=== PATIENT | female | born 1950 | race Caucasian/White ===

== ENCOUNTER 2024-10-08 17:18 | Inpatient (IN) | payer OTHER, MEDICAID, MEDICARE, SELFPAY ==
[2024-10-08 17:20] VITALS: BP 162/77; PULSE 83; RESP 19; TEMP 36.7; O2SAT 100
[2024-10-08 17:36] VITALS: PULSE 118; RESP 20; O2SAT 96
--- NOTE | 2024-10-08 18:21 | EKG_ITS ---
[facility] Test Date: 2024-10-08 Pat Name: MARCIN TEMPLE Department: Room: - Gender: Female Territory Representative: : 1950 Requested By: Luis Fernando Macedo Order Number: [id number] Reading MD: Luis Fernando Macedo Measurements Intervals Reading Rate: 111 P: 2 IA: 143 QRS: -31 QRSD: 73 T: 70 QT: 338 QTc: 460 Interpretive Statements SINUS TACHYCARDIA WITH OCCASIONAL SUPRAVENTRICULAR PREMATURE COMPLEXES MARKED LEFT AXIS DEVIATION [QRS AXIS < -30] PATTERN CONSISTENT WITH PULMONARY DISEASE MINIMAL VOLTAGE CRITERIA FOR LVH, CONSIDER NORMAL VARIANT [MEETS CRITERIA IN ONE OF: R(aVL), S(V1), R(V5), R(V5/V6)+S(V1)] NONSPECIFIC T-WAVE ABNORMALITY Compared to ECG 08/17/2024 09:07:51 Left-axis deviation now present T-wave abnormality now present Sinus rhythm no longer present /store/S0/[id number].pdf
--- NOTE | 2024-10-08 18:39 | XR_ITS ---
Examination: AP chest single view Technique: AP portable upright chest single view Exam date and time: October 08, 2024 1905 hrs. Comparison August 16, 2024 Indications: Hypertension diagnosis 2 days ago. Findings: Normal heart size Lungs are clear. The osseous structures are intact Impression: No active disease
--- NOTE | 2024-10-08 18:39 | PD.EDRME ---
Rapid Medical Screening Exam RME Arrival date/time: 10/08/24 17:18 74F with history of HTN, DM, CKD, and NSTEMI presents to ED with 2 days of HTN and anxiety, though patient has never had anxiety. Chief Complaint: General Adult/Misc Complain Time Seen by Provider: 10/08/24 18:24 Vital signs: Vital Signs Temperature 98.0 F 10/08/24 17:20 Pulse Rate 83 10/08/24 17:20 Respiratory Rate 19 10/08/24 17:20 Blood Pressure 162/77 H 10/08/24 17:20 Pulse Oximetry (%) 100 10/08/24 17:20 Oxygen Delivery Method Room Air 10/08/24 17:20
[2024-10-08 19:17] LABS: Basophils # (Auto) 0.1 Thou/mm3 (0.0-0.2); Basophils % (Auto) 1 % (0-2.5); Eosinophils # (Auto) 0.1 Thou/mm3 (0.0-0.5); Eosinophils % (Auto) 1 % (0-10); Hematocrit 38.6 % (36.0-46.0); Hemoglobin 13.1 g/dL (12.0-16.0); Immature Granulocytes % (Auto) 0 % (0-0); Immature Granulocytes Auto 0.03 Thou/mm3 (0.00-0.00); Lymphocytes # (Auto) 2.1 Thou/mm3 (1.0-4.8); Lymphocytes % (Auto) 21 % (10-50); Mean Corpuscular HGB Conc 33.9 g/dl (31.0-37.0); Mean Corpuscular Hemoglobin 28.4 pg (25.0-35.0); Mean Corpuscular Volume 84 fL (80-100); Monocytes # (Auto) 0.9 Thou/mm3 (0.0-0.8); Monocytes % (Auto) 9 % (0-12); Neutrophils # (Auto) 6.5 Thou/mm3 (1.8-7.7); Neutrophils % (Auto) 68 % (37-80); Nucleated Red Blood Cell % 0 /100 WBC (0); Platelet Count 246 Thou/mm3 (140-440); RDW Standard Deviation 42.7 fL (36.4-46.3); Red Blood Count 4.62 Miln/mm3 (4.00-5.20); White Blood Count 9.7 Thou/mm3 (3.6-11.0)
[2024-10-08 20:13] LABS: Alanine Aminotransferase 21 U/L (10-49); Albumin, Serum 5.3 gm/dL (3.4-4.8); Albumin/Globulin Ratio 2.2 (1.2-2.2); Alkaline Phosphatase 91 U/L (46-116); Anion Gap 11 (7-16); Aspartate Amino Transferase 27 U/L (0-34); BUN/Creatinine Ratio 18 Ratio (12-20); Bilirubin,Total 0.4 mg/dL (0.3-1.2); Blood Urea Nitrogen 29 mg/dL (9-23); Calcium 11.4 mg/dL (8.3-10.6); Calcium (Corrected) 11.4 mg/dL (8.5-10.1); Carbon Dioxide 23.1 mMol/L (20.0-31.0); Chloride 104 mMol/L (98-107); Creatinine (Component) 1.6 mg/dL (0.6-1.3); Globulin 2.4 gm/dL (2.3-3.5); Glucose 153 mg/dL (74-106); Osmolality,Calculated 284 (275-295); Potassium 3.6 mMol/L (3.4-5.1); Sodium 138 mMol/L (136-145); Total Protein 7.7 gm/dL (5.7-8.2); eGFR 33 See Note
[2024-10-08 20:14] LABS: Collection Type, Urine Clean Catch
[2024-10-08 20:16] LABS: Troponin I 0.262 ng/mL (0.0-0.045)
[2024-10-08 20:22] LABS: Bilirubin,Urine Negative (Negative); Blood,Urine Negative (Negative); Clarity,Urine Clear (Clear/Hazy); Color,Urine Lt-Yellow (Lt Yel-Yel); Glucose, Urine Negative (Negative); Ketones,Urine Negative (Negative); Leukocyte Esterase,Urine Positive (Negative); Nitrite,Urine Negative (Negative); PH,Urine 7.5 (5.0-7.0); Protein,Urine Negative (Neg - Trace); RBC,Urine 2 /hpf (0-3); Specific Gravity,Urine 1.009 (1.001-1.035); Squamous Epithelial Cell,Urine 1 /hpf (0-5); Urobilinogen,Urine Negative mg/dL (0.0-1.0); WBC,Urine 5 /hpf (0-5)
[2024-10-08 20:28] LABS: Amphetamine/Methamp Scrn,U Negative (Negative); Barbiturate Screen,Urine Negative (Negative); Benzodiazepines Screen,Urine Negative (Negative); Benzoylecgonine Screen, Ur Negative (Negative); Fentanyl Screen,Urine Negative (Negative); Opiate Screen,Urine Negative (Negative); THC Screen,Urine Negative (Negative)
--- NOTE | 2024-10-08 21:26 | PC.NURSE ---
Pt to room 6 at this time from lobby; assumed care.
[2024-10-08 21:33] VITALS: BP 161/94; PULSE 115; RESP 15; TEMP 36.4; O2SAT 98
[2024-10-08 21:34] VITALS: BP 161/94; PULSE 110; RESP 17; O2SAT 98
[2024-10-08 21:39] LABS: Troponin I 0.268 ng/mL (0.0-0.045)
--- NOTE | 2024-10-08 22:32 | PC.NURSE ---
WALKER Sal at the bedside at this time.
--- NOTE | 2024-10-08 22:37 | XR_ITS ---
Examination: CT brain head without contrast. 2-D sagittal coronal reconstructions Date and time of exam:October 09, 2024 0004 hrs. Indications: High blood pressure with headache today CTDI: vol (mGy):47.6 DLP: (mGycm):925 Technique: Multiple CT axial sections of the brain have been obtained, 5 mm slice thickness. Contrast has not been administered. 2-D sagittal, coronal reconstructions have been obtained Low dose protocols were performed. One or more of the following dose reduction techniques were used; automated exposure control, adjustment of the mA and/or KV according to patient size, use of iterative reconstruction technique. Findings: No significant ventricular enlargement. 6 mm old appearing left brainstem infarct pontine level Intra-axial or extra-axial hemorrhage density is not seen. No mass effect or midline shift Basal cisterns are not remarkable. Fourth ventricle is midline. Cranial vault intact. 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
--- NOTE | 2024-10-08 22:39 | PD.EDADULT ---
ED General RME/HPI General Chief complaint: General Adult/Misc Complain Stated complaint: HYPERTENSION Time Seen by Provider: 10/08/24 18:24 Arrival date/time: 10/08/24 17:18 RME / HPI RME / HPI narrative: 74-year-old female patient with significant history of hypertension diabetes mellitus, , and non-STEMI, came into the emergency room for evaluation regarding dizziness and headache. Patient been having dizziness and headache for the last 3 days, and was also noted to have elevated blood pressure. While waiting in the triage, patient developed left-sided chest pain lasting for several minutes. Currently patient is not having any chest pain. Patient denies any cough denies any other complaints no medications taken prior to arrival. Related Data Home Medications ?Medication ?Instructions ?Recorded ?Confirmed clonidine HCl 0.2 mg tablet 1 tab PO DAILY ##0 10/17/13 08/16/24 (Catapres) diphenhydramine HCl 50 mg capsule 50 mg PO QHSPRN PRN Sleep ##0 10/17/13 08/16/24 metformin 500 mg tablet 500 mg PO DAILY #0 tabs 10/17/13 08/16/24 (Glucophage) valsartan 320 mg tablet (Diovan) 320 mg PO QDAY #0 tabs 10/17/13 08/16/24 gabapentin 300 mg capsule 300 mg PO BID #0 caps 07/09/14 08/16/24 aspirin 81 mg tablet 81 mg PO QDAY 08/16/24 08/16/24 hydrocodone 10 mg-acetaminophen 1 tab PO PRN PRN Pain 08/16/24 08/16/24 325 mg tablet loratadine 10 mg tablet 10 mg PO QDAY PRN Allergies 08/16/24 08/16/24 rosuvastatin 10 mg tablet 10 mg PO QDAY 08/16/24 08/16/24 Previous Rx's ?Medication ?Instructions ?Recorded hydralazine 100 mg tablet 100 mg PO TID 60 days #180 tabs 08/18/24 Allergies Allergy/AdvReac Type Severity Reaction Status Date / Time pseudoephedrine AdvReac Severe RAPID Verified 10/08/24 17:43 HEART BEAT Review of Systems Review of Systems Narrative Review of Systems: Review of system reviewed and within normal limits except mentioned in HPI ED Exam Narrative Physical exam: VITAL SIGNS: Reviewed. GENERAL APPEARANCE: Alert and interactive, follows commands, no acute distress, HEAD AND FACE: Non-traumatic. ENT: PERRL, pink conjunctivitis, eyelid no trauma, Mucous membrane moist. NECK: Supple, nontender, no nuchal rigidity. CHEST: No tenderness, no crepitus, no paradoxical movement, no retractions. LUNGS: Clear, well ventilated, symmetric, no rales, no wheezing, no ronchi, no stridor, good breath sounds bilaterally. HEART: Regular rate, regular rhythm, no murmur, no gallops. ABDOMEN: Soft, positive bowel sounds, nondistended, no guarding, nontender, no rebound, no masses, RECTAL: Deferred. GENITAL: Deferred. NEUROLOGICAL: Gross motor function intact sensory function intact, Appropriate for age. MUSCULOSKELETAL: low back nontender, full range of motion. EXTREMITIES: Nontender, full range of motion. SKIN: Color pink, dry, no rash, no lacerations, no abrasions, no contusions. LYMPHATICS: Deferred. Course Quality Measures none Orders Category Date Time Status COVID-19 Screening Questionnaire NOW Care 10/08/24 23:44 Active Decision to Admit X1 Care 10/08/24 23:44 Completed EKG (ED ONLY) *Do not use* NOW Care 10/08/24 18:21 Completed EKG (ED ONLY) *Do not use* NOW Care 10/08/24 23:[address] head/brain wo con Stat Exams 10/08/24 22:37 Completed EKG (ED Only) Stat Exams 10/08/24 18:21 Draft EKG (ED Only) Stat Exams 10/08/24 23:41 Ordered XR chest 1V portable Stat Exams 10/08/24 18:39 Completed CBC Stat Lab 10/08/24 18:53 Completed Comprehensive Metabolic Panel Stat Lab 10/08/24 18:53 Completed Drug Screen,Urine Stat Lab 10/08/24 20:04 Completed Troponin I Stat Lab 10/08/24 18:53 Completed Troponin I Stat Lab 10/08/24 20:49 Completed Troponin I Stat Lab 10/09/24 01:11 Completed Urinalysis Stat Lab 10/08/24 20:04 Completed Acetaminophen Tab [Tylenol ES Tab] Med 10/08/24 22:41 Discontinued 1,000 mg PO X1 ONE Sodium Chloride 0.9% 1000 ml [Ns] 1,000 ml Med 10/08/24 22:38 Discontinued IV 999 mls/hr Sodium Chloride 0.9% 500 ml [Ns] 500 ml Med 10/09/24 00:06 Discontinued IV 999 mls/hr Vital Signs Vital signs: Vital Signs Temperature 98.0 F 10/08/24 17:20 Pulse Rate 83 10/08/24 17:20 Respiratory Rate 19 10/08/24 17:20 Blood Pressure 162/77 H 10/08/24 17:20 Pulse Oximetry (%) 100 10/08/24 17:20 Oxygen Delivery Method Room Air 10/08/24 17:20 [facility] Patient data [place] [facility] [place] Clinical information provided by:: patient Social determinants that could affect healthcare access:: none Patient has the following chronic illnesses:: None How is presenting disease/condition affected by chronic disease/condition?: exacerbated by Evaluation data The following diagnostics were reviewed and interpreted by me:: lab results, radiology exam(s) and EKG tracing(s) Lab and/or radiology exams considered but not ordered:: None Interpretation Summary: Troponin was noted to be initially 0.262, after triage it went up to 0.268. EKG showed sinus tachycardia, ventricular rate of 111 bpm, no ST segment elevation depression noted. I personally reviewed and interpreted the x-ray of this patient. There is no acute abnormalities found, no infiltrates no pneumothorax no hemothorax normal chest x-ray. Review of other structures was without significant abnormal findings also. I additionally reviewed the radiologist report and agree with the interpretation. CT scan of the head came back unremarkable Medications Medications considered but not ordered:: None Medication administrations:: Medication Administration History Acetaminophen (Acetaminophen 325 Mg Tablet) 650 mg PO Q6H PRN PRN Reason: Pain 1-3 and/or Fever >100.1 Stop: 11/08/24 00:43 Aspirin (Aspirin Ec 81 Mg Tabec) 81 mg PO QDAY HARI Stop: 11/09/24 08:59 Atorvastatin Calcium (Atorvastatin Calcium 20 Mg Tablet) 80 mg PO HS HARI Stop: 11/09/24 20:59 Dextrose (Dextrose 50%-Water Inj 50 Ml Syringe) 25 ml IV Q15MIN PRN PRN Reason: BG 50-70 responsive npo pt Stop: 11/08/24 00:48 Dextrose (Dextrose 50%-Water Inj 50 Ml Syringe) 50 ml IV Q15MIN PRN PRN Reason: BG <50 OR BG <70 & pt unresponsive Stop: 11/08/24 00:48 Glucagon (Glucagon Inj 1 Mg Vial) 1 mg IM Q15MIN PRN PRN Reason: BG <70, and no IV access Heparin Sodium (Porcine) (Heparin Sod Inj 5000 Unit/Ml Vial) 5,000 unit SC Q12HR [facility] Stop: 10/23/24 08:59 Last Admin: 10/09/24 08:18 Dose: 5,000 unit Documented By: KARENA Co-signed By: KEITH Insulin Human Lispro (Insulin Lispro (Admelog) 1 Unit/0.01 Ml Unit) 0 unit SC ACHS [facility]; Protocol Stop: 11/08/24 07:29 Last Admin: 10/09/24 07:59 Dose: Not Given Documented By: KARENA Non-Admin Reason: Per Protocol Losartan Potassium (Losartan Potassium 25 Mg Tablet) 50 mg PO QDAY [facility] Stop: 11/09/24 08:59 Metoprolol Succinate (Metoprolol Succinate Xl 25 Mg Tabcr) 25 mg PO QDAY [facility] Stop: 11/08/24 10:14 Morphine Sulfate (Morphine Sulf Inj 10 Mg/Ml Vial) 1 mg IVP Q4HR PRN PRN Reason: Pain 7-10 Stop: 10/14/24 01:36 Last Admin: 10/09/24 08:19 Dose: 1 mg Documented By: KARENA Nifedipine (Nifedipine Xl 30 Mg Tabcr) 30 mg PO QDAY [facility] Stop: 11/08/24 20:59 Nitroglycerin (Nitroglycerin 0.4 Mg Subl Btl #25) 0.4 mg SL Q5MIN PRN PRN Reason: CHEST PAIN Ondansetron HCl (Ondansetron Inj 2 Mg/Ml Inj 2 Ml) 4 mg IV Q6H PRN; Protocol PRN Reason: NAUSEA OR VOMITING Stop: 11/08/24 00:43 Sennosides (Senna Tablet) 1 tab PO QDAY [facility]; Protocol Stop: 11/08/24 08:59 Last Admin: 10/09/24 08:18 Dose: 1 tab Documented By: KARENA Discontinued Medications Acetaminophen (Acetaminophen 500 Mg Tablet) 1,000 mg PO X1 ONE Stop: 10/08/24 22:42 Last Admin: 10/08/24 22:55 Dose: 1,000 mg Documented By: KG Aspirin (Aspirin 325 Mg Tablet) 325 mg PO X1 ONE Stop: 10/09/24 00:50 Last Admin: 10/09/24 00:54 Dose: 325 mg Documented By: KG Atorvastatin Calcium (Atorvastatin Calcium 20 Mg Tablet) 80 mg PO X1 ONE Stop: 10/09/24 01:56 Last Admin: 10/09/24 03:18 Dose: 80 mg Documented By: KG Sodium Chloride (Ns) 1,000 mls @ 999 mls/hr IV .Q1H1M ONE Stop: 10/08/24 23:38 Last Infusion: 10/08/24 23:57 Dose: Infused Documented By: Admin: 10/08/24 22:52 Dose: 999 mls/hr Documented By: KG Sodium Chloride (Ns) 500 mls @ 999 mls/hr IV .Q31M ONE Stop: 10/09/24 00:36 Last Infusion: 10/09/24 01:27 Dose: Infused Documented By: Admin: 10/09/24 00:53 Dose: 999 mls/hr Documented By: KG Magnesium Sulfate (Magnesium Sulfate Ivpb) 2 gm in 50 mls @ 25 mls/hr IV X1 ONE Stop: 10/09/24 11:03 Last Admin: 10/09/24 09:27 Dose: 25 mls/hr Documented By: AM Magnesium Sulfate (Magnesium Sulfate Ivpb) 2 gm in 50 mls @ 25 mls/hr IV X1 ONE Stop: 10/09/24 12:02 Losartan Potassium (Losartan Potassium 25 Mg Tablet) 50 mg PO X1 ONE Stop: 10/09/24 09:02 Last Admin: 10/09/24 09:28 Dose: 50 mg Documented By: AM Nifedipine (Nifedipine Xl 30 Mg Tabcr) 30 mg PO X1 ONE Stop: 10/09/24 00:56 Last Admin: 10/09/24 01:47 Dose: 30 mg Documented By: KG Nifedipine (Nifedipine Xl 30 Mg Tabcr) 30 mg PO QDAY HARI Stop: 11/08/24 08:59 Potassium Chloride (Potassium Chloride 20 Meq Tabcr) 40 meq PO X1 ONE Stop: 10/09/24 09:04 Last Admin: 10/09/24 09:27 Dose: 40 meq Documented By: AM Potassium Chloride (Potassium Chloride 20 Meq Tabcr) 20 meq PO X1 ONE Stop: 10/09/24 09:06 Last Admin: 10/09/24 09:28 Dose: 20 meq Documented By: AM Patient received Tylenol, aspirin Consultations Consultation(s) initiated? (list below): No Diagnosis Differential Diagnosis ED Complaint MDM: Chest pain, ACS, headache, dizziness Most likely diagnosis given after review of the tests above:: Chest pain, elevated troponin dizziness Admission Indicated Admission indicated?: indicated Explain why admission is indicated or not indicated:: Patient is to be admitted for further management Admission Request Was there a request for admission?: Yes Admission Attestation Admission request attestation: Discussed case with [Jamia] from Hospitalist service regarding admission. Discussed patients ED course, exam findings, labs, and radiology results. The Hospitalist [agrees] to accept the patient for admission. Disposition Plan Disposition Plan: Admit Medical Decision Making MDM Narrative MDM Narrative: 74-year-old female patient with significant history of hypertension diabetes mellitus, , and non-STEMI, came into the emergency room for evaluation regarding dizziness and headache. Patient been having dizziness and headache for the last 3 days, and was also noted to have elevated blood pressure. While waiting in the triage, patient developed left-sided chest pain lasting for several minutes. Currently patient is not having any chest pain. Patient denies any cough denies any other complaints no medications taken prior to arrival. Patient's troponin was noted to be 0.262 and after 3 hours, it went up to 0.268. EKG showed no ST segment elevation or depression noted. While in the emergency room patient had a total of 3 episode of substernal chest pain, that lasted for few minutes. CT scan of the head came back unremarkable. Case discussed with Dr. Blandon, hospitalist resident, discussed the case, and waiting for the third troponin. Care transferred to Dr. Armenta for final disposition 11:30 PM. Differential Diagnosis Differential Diagnosis: Chest pain, ACS, headache, dizziness Lab Data 10/09/24 07:59 10/09/24 07:59 Labs: Lab Results 10/08/24 10/08/24 10/08/24 Range/Units 18:53 20:04 20:49 WBC 9.7 (3.6-11.0) Thou/mm3 RBC 4.62 (4.00-5.20) Miln/mm3 Hgb 13.1 (12.0-16.0) g/dL Hct 38.6 (36.0-46.0) % MCV 84 (80-100) fL MCH 28.4 (25.0-35.0) pg MCHC 33.9 (31.0-37.0) g/dl RDW Std Deviation 42.7 (36.4-46.3) fL Plt Count 246 (140-440) Thou/mm3 Neut % (Auto) 68 (37-80) % Lymph % (Auto) 21 (10-50) % [place] % (Auto) 9 (0-12) % Eos % (Auto) 1 (0-10) % Baso % (Auto) 1 (0-2.5) % Neut # (Auto) 6.5 (1.8-7.7) Thou/mm3 Lymph # (Auto) 2.1 (1.0-4.8) Thou/mm3 [place] # (Auto) 0.9 H (0.0-0.8) Thou/mm3 Eos # (Auto) 0.1 (0.0-0.5) Thou/mm3 Baso # (Auto) 0.1 (0.0-0.2) Thou/mm3 Immature Gran # (Auto) 0.03 H (0.00-0.00) Thou/mm3 Absolute Nucleated RBC 0.00 (0.00-0.00) Thou/mm3 Immature Gran % 0 (0-0) % Nucleated RBC % 0 (0) /100 WBC Sodium 138 (136-145) mMol/L Potassium 3.6 (3.4-5.1) mMol/L Chloride 104 (98-107) mMol/L Carbon Dioxide 23.1 (20.0-31.0) mMol/L Anion Gap 11 (7-16) BUN 29 H (9-23) mg/dL Creatinine 1.6 H (0.6-1.3) mg/dL Estim Creat Clear Calc Not Performed. eGFR 33 L (60 - ) See Note BUN/Creatinine Ratio 18 (12-20) Ratio Glucose 153 H (74-106) mg/dL Calculated Osmolality 284 (275-295) Calcium 11.4 H (8.3-10.6) mg/dL Corrected Calcium 11.4 H (8.5-10.1) mg/dL Total Bilirubin 0.4 (0.3-1.2) mg/dL AST 27 (0-34) U/L ALT 21 (10-49) U/L Alkaline Phosphatase 91 (46-116) U/L Troponin I 0.262 H* 0.268 H* (0.0-0.045) ng/mL Total Protein 7.7 (5.7-8.2) gm/dL Albumin 5.3 H (3.4-4.8) gm/dL Globulin 2.4 (2.3-3.5) gm/dL Albumin/Globulin Ratio 2.2 (1.2-2.2) Ur Collection Type Clean Catch Urine Color Lt-Yellow (Lt Yel-Yel) Urine Clarity Clear (Clear/Hazy) Urine pH 7.5 H (5.0-7.0) Ur Specific [place] 1.009 (1.001-1.035) Urine Protein Negative (Neg - Trace) Urine Glucose (UA) Negative (Negative) Urine Ketones Negative (Negative) Urine Blood Negative (Negative) Urine Nitrite Negative (Negative) Urine Bilirubin Negative (Negative) Urine Urobilinogen (Auto) Negative (0.0-1.0) mg/dL Ur Leukocyte Esterase Positive (Negative) Urine RBC 2 (0-3) /hpf Urine WBC 5 (0-5) /hpf Ur Squamous Epith Cells 1 (0-5) /hpf Urine Bacteria None (None) Urine Opiates Screen Negative (Negative) Urine Fentanyl Screen Negative (Negative) Ur Barbiturates Screen Negative (Negative) U Amphetamin/Meth Scrn Negative (Negative) U Benzodiazepines Scrn Negative (Negative) U Cocaine Metab Screen Negative (Negative) U Marijuana (THC) Screen Negative (Negative) Discharge Plan Problem List Clinical Impression: Chest pain, Elevated troponin, Headache
[2024-10-08] MEDS: SODIUM CHLORIDE 0.9% 1000 ML 1,000 ML 999 ML IV (22:52)
[2024-10-08] MEDS: ACETAMINOPHEN 500 MG TABLET 1000 MG PO (22:55)
--- NOTE | 2024-10-08 23:42 | PD.EDADDENDU ---
Emergency Room Addendum Addendum Narrative: 2342: Care assumed from Doron Hardin Past medical, surgical, social and family history reviewed. Vitals and home medications reviewed. Results and treatment plan discussed. I will assume the care of the patient at this time and will follow the patient, pending . Please refer to the emergency department record for history and examination from initial visit.
--- NOTE | 2024-10-08 23:43 | PC.NURSE ---
Pt stating she feels like a ton of bricks are on her chest right now. ED DIRECTOR TRUST Candijun notified, verbal order received for repeat EKG.
--- NOTE | 2024-10-08 23:58 | PC.NURSE ---
Pt to CT scan via [facility] at this time.
[2024-10-09] VITALS (26 sets, daily range): BP systolic 137–204; BP diastolic 54–119; PULSE 73–157; RESP 14–98; TEMP 36.4–37.1; O2SAT 95–98
--- NOTE | 2024-10-09 00:06 | PD.EDADDENDU ---
Emergency Room Addendum Addendum Narrative: 0006: Spoke with the resident hospitalist, who recommends getting a repeat troponin, IVF, and repeat BMP. If labs are improved, the patient can be discharged home.
[2024-10-09] MEDS: SODIUM CHLORIDE 0.9% 500 ML 500 ML 999 ML IV (00:53)
[2024-10-09] MEDS: Aspirin 325 MG TABLET PO (00:54)
--- NOTE | 2024-10-09 00:56 | ESHP_ITS ---
Documentation for date of: 10/09/24 [facility] History of Present Illness Chief complaint: Dizziness, Chest Pain History of present illness: 74 year old female with a past medical history of poorly-controlled hypertension, diabetes mellitus type 2 non insulin dependent, and possible coronary artery disease (followed by Dr. Box over 10 years ago) presents to the emergency room with a chief complain of dizziness and later developed left sided chest pain while waiting in the ED. Patient states that symptoms started 3 days ago (10/05) and have progressively worsened. She states that she felt like she was walking like she was drunk , had dizziness along with shakiness, and almost fell but her friend was able to catch her. She knows that she has uncontrolled hypertension, but she states that she takes almost all of her medications as prescribed. Patient is on Lasix, nifedipine, valsartan, clonidine and hydralazine; however, she has apparently stopped taking clonidine because she believes she doesn't need it. Of note, patient was discharged from the hospital on 08/18 with viral gastritis and told to follow-up outpatient with a email marketing executive; however, she has never been seen by a email marketing executive. Patient currently states that she feels like there is a ton of bricks on her chest and although the pain worsens with deep breathing, she states that the pain is present at all times. Patient also has some palpitations, but denies having any orthopnea, PND, lower extremity edema prior to this episode or currently. Medical History: As stated above Surgical History: Partial hysterectomy Allergies: Pseudoephedrine Medications: Pending med rec Family History: Noncontributory Social History: Former smoker, quit 25 years ago. Denied alcohol and illicit drug use In the ED, blood pressure 162/77, heart rate 83, respiratory rate 19, afebrile satting 100 on room air. Pertinent lab findings included WBC 9.7, BUN 29, creatinine 1.6, glucose 153, calcium 11.4, troponin 0.262. Urinalysis does not show any signs of urinary tract infection. Chest x-ray does not show any active disease; however, EKG is sinus tachycardia and does show new left axis deviation without any concerning ST changes. Head CT shows no evidence of intracranial hemorrhage, mass effect or midline shift; however, there are chronic small vessel ischemic changes noted. Patient will be admitted for workup for possible ACS, NSTEMI type I as she does have history of CAD, will consult cardiology for recommendations. Exam Vital Signs Temp Pulse Resp BP Pulse Ox O2 Del Method 97.5 F 96 17 191/119 H 98 Room Air 10/08/24 21:33 10/09/24 00:55 10/09/24 00:55 10/09/24 00:55 10/09/24 00:55 10/09/24 00:55 Narrative Exam Physical Exam: GENERAL: Awake, answering questions appropriately, appears stated age HEENT: NC/AT. Moist mucosa. PERRLA/EOMI. CARDIO: Heart RRR, no obvious murmurs, no JVD. PULM: No coughing or visible SOB. Lungs CTA B/L. GI: Abdomen soft, NT/ND, +BS. SKIN/MSK/EXT: No wounds/discoloration/rashes/edema/amputations. +Pedal pulses present B/L. NEURO: Oriented x3, tattoo designer strength 5/5, Moves extremities x4. Results: Labs 10/08/24 18:53 10/08/24 18:53 Labs: Short CBC 10/08/24 Range/Units 18:53 WBC 9.7 (3.6-11.0) Thou/mm3 Hgb 13.1 (12.0-16.0) g/dL Hct 38.6 (36.0-46.0) % Plt Count 246 (140-440) Thou/mm3 BMP 10/08/24 18:53 Sodium 138 Potassium 3.6 Chloride 104 Carbon Dioxide 23.1 BUN 29 H Creatinine 1.6 H Glucose 153 H Calcium 11.4 H Cardiac Enzymes 10/08/24 10/08/24 Range/Units 18:53 20:49 Troponin I 0.262 H* 0.268 H* (0.0-0.045) ng/mL Liver Function 10/08/24 Range/Units 18:53 Total Bilirubin 0.4 (0.3-1.2) mg/dL AST 27 (0-34) U/L ALT 21 (10-49) U/L Alkaline Phosphatase 91 (46-116) U/L Albumin 5.3 H (3.4-4.8) gm/dL Urine 10/08/24 Range/Units 20:04 Urine Color Lt-Yellow (Lt Yel-Yel) Urine Clarity Clear (Clear/Hazy) Urine pH 7.5 H (5.0-7.0) Ur Specific [place]ola 1.009 (1.001-1.035) Urine Protein Negative (Neg - Trace) Urine Glucose (UA) Negative (Negative) Quality Measures Quality Measures VTE prophylaxis Advance care planning discussed with:: patient Medications Home Medications and Allergies Home Medications ?Medication ?Instructions ?Recorded ?Confirmed ?Type clonidine HCl 0.2 mg tablet 1 tab PO DAILY ##0 10/17/13 08/16/24 History (Catapres) diphenhydramine HCl 50 mg capsule 50 mg PO QHSPRN PRN Sleep ##0 10/17/13 08/16/24 History metformin 500 mg tablet 500 mg PO DAILY #0 tabs 10/17/13 08/16/24 History (Glucophage) valsartan 320 mg tablet (Diovan) 320 mg PO QDAY #0 tabs 10/17/13 08/16/24 History gabapentin 300 mg capsule 300 mg PO BID #0 caps 07/09/14 08/16/24 History aspirin 81 mg tablet 81 mg PO QDAY 08/16/24 08/16/24 History hydrocodone 10 mg-acetaminophen 1 tab PO PRN PRN Pain 08/16/24 08/16/24 History 325 mg tablet loratadine 10 mg tablet 10 mg PO QDAY PRN Allergies 08/16/24 08/16/24 History rosuvastatin 10 mg tablet 10 mg PO QDAY 08/16/24 08/16/24 History Allergies Allergy/AdvReac Type Severity Reaction Status Date / Time pseudoephedrine AdvReac Severe RAPID Verified 10/08/24 17:43 HEART BEAT Visit Medications Acetaminophen (Acetaminophen 325 Mg Tablet) 650 mg PO Q6H PRN PRN Reason: Pain 1-3 and/or Fever >100.1 Stop: 11/08/24 00:43 Dextrose (Dextrose 50%-Water Inj 50 Ml Syringe) 25 ml IV Q15MIN PRN PRN Reason: BG 50-70 responsive npo pt Stop: 11/08/24 00:48 Dextrose (Dextrose 50%-Water Inj 50 Ml Syringe) 50 ml IV Q15MIN PRN PRN Reason: BG <50 OR BG <70 & pt unresponsive Stop: 11/08/24 00:48 Glucagon (Glucagon Inj 1 Mg Vial) 1 mg IM Q15MIN PRN PRN Reason: BG <70, and no IV access Insulin Human Lispro (Insulin Lispro (Admelog) 1 Unit/0.01 Ml Unit) 0 unit SC ACHS [facility]; Protocol Stop: 11/08/24 07:29 Nitroglycerin (Nitroglycerin 0.4 Mg Subl Btl #25) 0.4 mg SL Q5MIN PRN PRN Reason: CHEST PAIN Ondansetron HCl (Ondansetron Inj 2 Mg/Ml Inj 2 Ml) 4 mg IV Q6H PRN; Protocol PRN Reason: NAUSEA OR VOMITING Stop: 11/08/24 00:43 Sennosides (Senna Tablet) 1 tab PO QDAY [facility]; Protocol Stop: 11/08/24 08:59 Discontinued Medications Acetaminophen (Acetaminophen 500 Mg Tablet) 1,000 mg PO X1 ONE Stop: 10/08/24 22:42 Last Admin: 10/08/24 22:55 Dose: 1,000 mg Aspirin (Aspirin 325 Mg Tablet) 325 mg PO X1 ONE Stop: 10/09/24 00:50 Last Admin: 10/09/24 00:54 Dose: 325 mg Sodium Chloride (Ns) 1,000 mls @ 999 mls/hr IV .Q1H1M ONE Stop: 10/08/24 23:38 Last Infusion: 10/08/24 23:57 Dose: Infused Sodium Chloride (Ns) 500 mls @ 999 mls/hr IV .Q31M ONE Stop: 10/09/24 00:36 Last Admin: 10/09/24 00:53 Dose: 999 mls/hr Nifedipine (Nifedipine Xl 30 Mg Tabcr) 30 mg PO X1 ONE Stop: 10/09/24 00:56 Assessment & Plan Plan 74 year old female with a past medical history of poorly-controlled hypertension, diabetes mellitus type 2 non insulin dependent, and possible coronary artery disease (followed by Dr. Box over 10 years ago) presents to the emergency room with a chief complain of dizziness and later developed left sided chest pain while waiting in the ED will be admitted for workup for possible ACS, NSTEMI type I as she does have history of CAD, will consult cardiology for recommendation. #Elevated Troponin #NSTEMI Type I vs. Type II #Possible Hx of CAD Patient presenting initially with headache/dizziness; however, during waiting she developed left-sided chest pain which she explains feels like bricks on her chest ALEXANDRO ACS score of 107?points 5?% Probability of from admission to 6 months Patient has remote history of following with Dr. Box, cardiology almost 10 years ago Patient denies having any cardiac stent placed ECHO from 08/17/2024 shows: Normal LV size and function. Grade I diastolic dysfunction. Estimated EF 60-65% Normal RV size and function. Trace MR, TR. Mild AV sclerosis without stenosis. She has risk factors for CAD; history of smoking, uncontrolled hypertension, type 2 diabetes, obesity Troponin went from 0.262 => 0.268 => 0.279 Plan: Cardiology, Dr. Pacheco, consulted appreciate recommendations Given aspirin 325, aspirin 81 daily following Trending troponin, next one @ 7am 10/09 Telemetry admit Nitroglycerin sublingual, max dose of 3 as needed every 5 minutes Morphine 1 mg every 4 hours added for pain control #Hypertension #Dizziness/Headache Patient has poorly controlled hypertension She takes Lasix 20, nifedipine 30, valsartan 320, hydralazine 100 Patient states she stopped taking Clonidine 0.2mg po bid at her own will Presenting with elevated BP in the ED; however, she has not taken any of her home medications due to feeling acutely ill Head CT shows no evidence of intracranial hemorrhage, mass effect or midline shift; however, there are chronic small vessel ischemic changes noted. Plan: Restart home medications appropriately Started nifedipine 30mg po qday for now Holding the rest for now #EUGENIA #Prerenal Azotemia Baseline Cr 1-1.2 Currently presenting with Cr 1.6 Likely in the setting of prerenal azotemia; poor po intake Urinanalysis wnl IVF given in ED Plan: Follow-up with morning labs Treat hypertension #Non-insulin dependent Type 2 DM 08/17 A1c of 5.8 On home metformin 500mg po qday Plan: SSI Bedside glucose ACHS #Hyperlipidemia High-intensity statin recommended because of known diabetes and 10-year risk >=.5%. If LDL <70mg/dl (1.81 mmol/L) 48.5% Risk of cardiovascular event (coronary or stroke or non-fatal DE or stroke) in next 10 years. 12.0% 10-year cardiovascular risk if risk factors were optimal. On home rosuvastatin 10mg po qday Plan: Will start high intensity statin Hospital Management: Lines: PIV Diet: Cardiac and carb consistent low Bowel: Senna GI prophylaxis: Not needed DVT prophylaxis: Heparin subq Dispo: Workup for ACS, NSTEMI type II versus type I, cardiology consulted appreciate recommendations Code: Full Patient seen and examined with attending Dr. Shaffer and senior resident Dr. Derrick Blandon, PGY-1 Attending Provider Attestation/Addendum Face to face evaluation was performed by me. I have personally seen and examined the patient. I discussed the assessment and plan with the entire medicine team. I reviewed available medical records, imaging studies, laboratory results. I agree with the above subjective data, objective findings, assessment and plan except as corrected by me or noted below \ Dizziness elevated torpnin i, likely nstemi type 2 demand isthmia CP, atypical at least HTN essential HLD - asa, tropoinin checks, not up trending - ACS unlikely, Cardiology consulted - BP control - monitor labs, vitals and clinical course closely
--- NOTE | 2024-10-09 01:00 | PRELIM_ITS ---
CT scan of the head without intravenous contrast (axial sections with sagittal and coronal reformats) October 09, 2024 at 0004 hours Clinical history: Headache. Comparison: No prior study is available for comparison. Findings:There is no evidence of intracranial hemorrhage, mass effect or midline shif t. There are periventricular and subcortical white matter hypodensities, compatible with chronic smal l vessel ischemia. There is atheromatous calcification of the intracranial arteries. The calvarium is unremarkable. The mastoid air cells and the visualized paranasal sinuses are clear.Impression:No beverly dence of intracranial hemorrhage, mass effect or midline shift.Chronic small vessel ischemia. Report Electronically Signed By: Milton Santos 10/09/2024 12:59:30 AM [EST]
--- NOTE | 2024-10-09 01:00 | PC.NURSE ---
Addendum entered by Reyna Juarez RN 10/09/24 01:01: nifedipine 30 mg, as we do not stock it in the ED. 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
[2024-10-09] MEDS: NIFEdipine XL 30 MG TABCR PO ×2 (01:47→20:01)
[2024-10-09 01:57] LABS: Troponin I 0.279 ng/mL (0.0-0.045)
[2024-10-09] MEDS: ATORVASTATIN CALCIUM 20 MG TABLET 80 MG PO (03:18)
--- NOTE | 2024-10-09 07:41 | PC.CC ---
Patient is a 74 year-old female who presented to the hospital for chest pain. Aneta MONTEMAYOR made pfey-jq-dump contact with patient. ASW introduced self, role, and reason for visit. Patient appeared alert and oriented to self, location, and situation. Patient was pleasant and engaged in initial assessment. Patient confirmed information on demographics and lives at home with her daughter, Francine Chan . Prior to being admitted to the hospital the patient was able to ambulate independently and complete her own ADLs without the use of any DME. Patient received primary care with Yolande Ashton and uses [facility] for any prescription medications. Patient's Next of Kin is her daughter, Francine Chan. Upon discharge the patient plans to return home. tax services intern to follow-up with any discharge needs.
[2024-10-09 08:10] LABS: Basophils % (Auto) 1 % (0-2.5); Eosinophils # (Auto) 0.1 Thou/mm3 (0.0-0.5); Eosinophils % (Auto) 2 % (0-10); Hematocrit 34.7 % (36.0-46.0); Immature Granulocytes % (Auto) 0 % (0-0); Immature Granulocytes Auto 0.02 Thou/mm3 (0.00-0.00); Lymphocytes # (Auto) 1.7 Thou/mm3 (1.0-4.8); Lymphocytes % (Auto) 26 % (10-50); Mean Corpuscular HGB Conc 34.6 g/dl (31.0-37.0); Mean Corpuscular Hemoglobin 28.2 pg (25.0-35.0); Mean Corpuscular Volume 82 fL (80-100); Monocytes # (Auto) 0.7 Thou/mm3 (0.0-0.8); Monocytes % (Auto) 11 % (0-12); Neutrophils % (Auto) 60 % (37-80); Nucleated Red Blood Cell % 0 /100 WBC (0); Platelet Count 182 Thou/mm3 (140-440); RDW Standard Deviation 41.1 fL (36.4-46.3); Red Blood Count 4.26 Miln/mm3 (4.00-5.20); White Blood Count 6.6 Thou/mm3 (3.6-11.0)
[2024-10-09] MEDS: SENNA TABLET 1 TAB PO (08:18)
[2024-10-09] MEDS: HEPARIN SOD INJ 5000 UNIT/ML VIAL SC ×2 (08:18→20:05)
[2024-10-09] MEDS: MORPHINE SULF INJ 10 MG/ML VIAL IVP (08:19)
[2024-10-09 08:36] LABS: Alanine Aminotransferase 18 U/L (10-49); Albumin, Serum 4.7 gm/dL (3.4-4.8); Albumin/Globulin Ratio 2.4 (1.2-2.2); Alkaline Phosphatase 79 U/L (46-116); Anion Gap 9 (7-16); Aspartate Amino Transferase 15 U/L (0-34); BUN/Creatinine Ratio 24 Ratio (12-20); Bilirubin,Total 0.5 mg/dL (0.3-1.2); Blood Urea Nitrogen 31 mg/dL (9-23); Calcium 10.5 mg/dL (8.3-10.6); Calcium (Corrected) 10.5 mg/dL (8.5-10.1); Carbon Dioxide 23.4 mMol/L (20.0-31.0); Chloride 109 mMol/L (98-107); Creatinine (Component) 1.3 mg/dL (0.6-1.3); Glucose 110 mg/dL (74-106); Osmolality,Calculated 288 (275-295); Phosphorous 2.9 mg/dL (2.4-5.1); Potassium 3.3 mMol/L (3.4-5.1); Sodium 141 mMol/L (136-145); Total Protein 6.7 gm/dL (5.7-8.2); eGFR 43 See Note
[2024-10-09 08:39] LABS: Troponin I 0.256 ng/mL (0.0-0.045)
--- NOTE | 2024-10-09 09:07 | ECHO_ITS ---
Transthoracic Echo Report Ht (in): 62 Wt (lb): 208 Exam Location: [facility] Status: Inpatient Retail Greeter: Mari Honeycutt Indications: Procedure Performed: BP: 182 / 97 HR: 93 Rhythm: Tachycardia Technical Quality: Fair MEASUREMENTS (Male / Female) Normal Values 2D ECHO LV Diastolic Diameter PLAX 4.3 cm 4.2 - 5.9 / 3.9 - 5.3 cm LV Systolic Diameter PLAX 2.9 cm IVS Diastolic Thickness 1.3 cm 0.6 - 1.0 / 0.6 - 0.9 cm LVPW Diastolic Thickness 1.2 cm 0.6 - 1.0 / 0.6 - 0.9 cm LV Relative Wall Thickness 0.6 LVOT Diameter 2.0 cm LA Volume Index 20.6 cm?/m? 16 - 28 cm?/m? Ascending Aorta Diameter 3.0 cm M-MODE Aortic Root Diameter MM 2.7 cm LA Systolic Diameter MM 3.9 cm LA Ao Ratio MM 1.4 AV Cusp Separation MM 1.9 cm DOPPLER AV Peak Velocity 145.0 cm/s AV Peak Gradient 8.4 mmHg AV Mean Gradient 4.0 mmHg AV Velocity Time Integral 24.2 cm LVOT Peak Velocity 130.0 cm/s LVOT Peak Gradient 6.8 mmHg LVOT Velocity Time Integral 24.0 cm LVOT Cardiac Index 3371.9 cm?/min?m? AV Area Cont Eq vti 3.1 cm? AV Area Cont Eq pk 2.8 cm? MV Peak Velocity 118.0 cm/s MV Peak Gradient 5.6 mmHg MV Mean Velocity 75.4 cm/s MV Mean Gradient 3.0 mmHg MV Area PHT 5.6 cm? Mitral E Point Velocity 55.7 cm/s Mitral A Point Velocity 99.2 cm/s Mitral E to A Ratio 0.6 LV E' Lateral Velocity 7.6 cm/s Mitral E to LV E' Lateral Ratio 7.3 LV E' Septal Velocity 5.7 cm/s Mitral E to LV E' Septal Ratio 9.8 FINDINGS Left Ventricle Normal left ventricular size, systolic function with no obvious regional wall motion abnormalities. Mild LVH. The ejection fraction is visually estimated at 60-65%. Right Ventricle The right ventricle is normal in size and systolic function. Left Atrium The left atrium is normal by two-dimensional, color flow and Doppler imaging with no structural abnormalities, no thrombus formation present. Right Atrium The right atrium is normal by two-dimensional imaging, color flow and Doppler imaging with no struct ural abnormalities, no thrombus formation present. Atrial Septum The interatrial septum appears normal with no evidence of a shunt. Aorta The aorta is normal by two-dimensional, color flow and Doppler interrogation. Mitral Valve The mitral valve is normal by two-dimensional, color flow and Doppler interrogation. There is trace mitral valve regurgitation. Aortic Valve The aortic valve is trileaflet. Mild sclerosis without stenosis. There is no significant aortic valv e regurgitation. Tricuspid Valve The tricuspid valve is normal by two-dimensional, color flow and Doppler interrogation. There ist tr massimo tricuspid valve regurgitation. Pulmonic Valve There is no significant pulmonic valve regurgitation. Vessels The pulmonary artery appears normal. The inferior vena cava pulmonary and hepatic veins appear brandan l. Pericardium The pericardium is normal by two-dimensional imaging. There is no significant pericardial effusion. CONCLUSIONS Indication: CAD Normal LV size and function. Mild LVH. Stage I diastolic dsyfunction. Estimated EF 60-65% Normal RV size and function. Mild AV sclerosis without stenosis. Trace MR, TR. Mich Pacheco (Electronically Signed) Final Date: 09 October 2024 18:02
--- NOTE | 2024-10-09 09:13 | EKG_ITS ---
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
[2024-10-09] MEDS: POTASSIUM CHLORIDE 20 mEq TABCR 40 MEQ PO (09:27)
[2024-10-09] MEDS: Magnesium Sulfate 2 GM Ivpb 2 GM/50 ML BAG IV (09:27)
[2024-10-09] MEDS: POTASSIUM CHLORIDE 20 mEq TABCR PO (09:28)
[2024-10-09] MEDS: LOSARTAN POTASSIUM 25 MG TABLET 50 MG PO (09:28)
--- NOTE | 2024-10-09 10:25 | PD.RESCONSUL ---
HPI Data of Consult Requesting Physician: Guilherme Shaffer MD Admitting Provider: Guilherme Shaffer MD Attending Provider: Guilherme Shaffer MD Primary Care Provider: Yolande Ashton PA-C Consult Narrative Reason for consult: NSTEMI and questionable SVT History of present illness: 74-year-old female with past medical history of uncontrolled essential hypertension and DM2 was admitted to the hospital on 10/09/2024 due to elevated troponins. In the ED patient came in with complaints of dizziness and headaches before she developed chest pain while she was in the ER. Initially patient came in hypertensive and afebrile. Initial labs showed WBC 9.7, Hgb 13.1, sodium 138, potassium 3.6, bicarb 23.1, creatinine 1.6, BUN 29, calcium 11.4, troponins 0.262 and peaked at 0.279 before downtrending UA was positive for leukocytes esterase. Initial imaging included an EKG which shows sinus tachycardia with occasional PVCs. 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 Echo on 08/09/2024 had the following findings: Normal LV size and function. Grade I diastolic dysfunction. Estimated EF 60-65% Normal RV size and function. Trace MR, TR. Mild AV sclerosis without stenosis. During my assessment patient was comfortably resting in bed and eating her breakfast. She mentioned that 3 days ago she started having dizziness with headaches and she was having balance issues. She described that her balance was wobbly when she was walking drunk . She mentioned that while she was here in the ER she developed chest pain localized in the middle with no radiation and she described as somebody sitting on her chest. She mentioned that she has been having shortness of breath on and off which some chest pain in the past as well but that this was not for prolonged period of time. She mentions that she does get short of breath with exertion and has been getting leg swelling on and off. Patient also mentioned that her blood pressure has been in the 200s at home. She denies any shortness of breath at this time she was still having some chest pain, which was reproducible with palpation. She also mentioned that her chest pain sometimes got better or worse with breathing and that it sometimes improve with changes in position. She denied any syncopal episodes, palpitations, or cardiac events in the past. While was in the room with the patient examining her I noticed on the monitor that she was going in and out of SVT with the heart rates in the 160s before dropping down to the 80s and 70s. These episodes were not sustained and repeat EKG did show some sinus tachycardia with short MT intervals. PMH: Uncontrolled hypertension DM2 FMH: No relevant cardiac history as per patient Social: Admits to smoking in the past (quit 20 years ago and only use 1 pack/year for 1 year), denies any alcohol or drugs. Occupation: Stated she never worked cc:: cc: Guilherme Shaffer MD Review of Systems Review of Systems Narrative Review of Systems: Constitutional: Denies sweats, Denies weight loss/gain, Denies fever, Denies chills. HEENT: Denies hearing loss, Denies ear pain, Denies postnasal drip, Denies double vision, Denies blurry vision. Respiratory: Admits shortness of breath, denies cough, Denies wheezing. Cardiovascular: Admits chest pain, denies palpitations, Denies sudden loss of consciousness. GI: Denies blood in stool, Denies constipation, Denies abdominal pain, Denies difficulty swallowing, Denies nausea/vomit. : Denies urinary incontinence, Denies pain while urinating, Denies increased urinary frequency. MSK: Denies joint pain, Denies joint swelling, Denies numbness, Admits lower extremity swelling. Skin: Denies rash, Denies itching, Denies easy bruising. Neuro: Admits headaches, admits dizziness, Denies seizures. Past Medical History Past Medical History Comments PMH COMMENT: PMH: Uncontrolled hypertension DM2 FMH: No relevant cardiac history as per patient Social: Admits to smoking in the past (quit 20 years ago and only use 1 pack/year for 1 year), denies any alcohol or drugs. Occupation: Stated she never worked Exam Vital Signs Temp Pulse Resp BP Pulse Ox O2 Del Method 97.6 F 80 16 156/70 H 97 Room Air 10/09/24 09:47 10/09/24 09:47 10/09/24 09:47 10/09/24 09:47 10/09/24 09:47 10/09/24 09:47 Narrative Exam General: A/O x3, no acute distress, well-nourished, well-developed Eyes: PERRL, EOMI. Anicteric, vision grossly intact. Ears: No ear pain, no ear discharge, Hearing grossly intact. Nose: No nasal discharge. Mouth/Throat: Dry mucous membranes, no redness, no lesions. Neck: Neck supple, non-tender, no cervical lymphadenopathy. Lungs: Clear SHAWN to auscultation and percussion, No accessory muscle use. Cardio: Normal S1/S2, regular rhythm, no murmurs, no JVD, chest tender to palpation. Abdomen: Soft, non-tender, no palpable masses, peristalsis present, no guarding or rebound. Extremities: Symmetrical, no significant deformities, 1+ peripheral edema , non-tender, peripheral pulses presents. Skin: No rashes, no lesions, warm to touch. Neuro: No focal neurological deficits. motor and sensory intact Psych: Cooperative, appropriate mood and effect. Results Labs 10/09/24 07:59 10/09/24 07:59 Labs: Short CBC 10/08/24 10/09/24 Range/Units 18:53 07:59 WBC 9.7 6.6 (3.6-11.0) Thou/mm3 Hgb 13.1 12.0 (12.0-16.0) g/dL Hct 38.6 34.7 L (36.0-46.0) % Plt Count 246 182 D (140-440) Thou/mm3 BMP 10/08/24 10/09/24 18:53 07:59 Sodium 138 141 Potassium 3.6 3.3 L Chloride 104 109 H Carbon Dioxide 23.1 23.4 BUN 29 H 31 H Creatinine 1.6 H 1.3 Glucose 153 H 110 H Calcium 11.4 H 10.5 Cardiac Enzymes 10/08/24 10/08/24 10/09/24 Range/Units 18:53 20:49 01:11 Troponin I 0.262 H* 0.268 H* 0.279 H* (0.0-0.045) ng/mL 10/09/24 Range/Units 07:59 Troponin I 0.256 H* (0.0-0.045) ng/mL Liver Function 10/08/24 10/09/24 Range/Units 18:53 07:59 Total Bilirubin 0.4 0.5 (0.3-1.2) mg/dL AST 27 15 (0-34) U/L ALT 21 18 (10-49) U/L Alkaline Phosphatase 91 79 (46-116) U/L Albumin 5.3 H 4.7 D (3.4-4.8) gm/dL Urine 10/08/24 Range/Units 20:04 Urine Color Lt-Yellow (Lt Yel-Yel) Urine Clarity Clear (Clear/Hazy) Urine pH 7.5 H (5.0-7.0) Ur Specific [place] 1.009 (1.001-1.035) Urine Protein Negative (Neg - Trace) Urine Glucose (UA) Negative (Negative) Quality Measures Quality Measures VTE prophylaxis Advance care planning discussed with:: patient Medications Home Medications and Allergies Home Medications ?Medication ?Instructions ?Recorded ?Confirmed ?Type clonidine HCl 0.2 mg tablet 1 tab PO DAILY ##0 10/17/13 08/16/24 History (Catapres) diphenhydramine HCl 50 mg capsule 50 mg PO QHSPRN PRN Sleep ##0 10/17/13 08/16/24 History metformin 500 mg tablet 500 mg PO DAILY #0 tabs 10/17/13 08/16/24 History (Glucophage) valsartan 320 mg tablet (Diovan) 320 mg PO QDAY #0 tabs 10/17/13 08/16/24 History gabapentin 300 mg capsule 300 mg PO BID #0 caps 07/09/14 08/16/24 History aspirin 81 mg tablet 81 mg PO QDAY 08/16/24 08/16/24 History hydrocodone 10 mg-acetaminophen 1 tab PO PRN PRN Pain 08/16/24 08/16/24 History 325 mg tablet loratadine 10 mg tablet 10 mg PO QDAY PRN Allergies 08/16/24 08/16/24 History rosuvastatin 10 mg tablet 10 mg PO QDAY 08/16/24 08/16/24 History Allergies Allergy/AdvReac Type Severity Reaction Status Date / Time pseudoephedrine AdvReac Severe RAPID Verified 10/08/24 17:43 HEART BEAT Visit Medications Acetaminophen (Acetaminophen 325 Mg Tablet) 650 mg PO Q6H PRN PRN Reason: Pain 1-3 and/or Fever >100.1 Stop: 11/08/24 00:43 Aspirin (Aspirin Ec 81 Mg Tabec) 81 mg PO QDAY HARI Stop: 11/09/24 08:59 Atorvastatin Calcium (Atorvastatin Calcium 20 Mg Tablet) 80 mg PO HS [facility] Stop: 11/09/24 20:59 Dextrose (Dextrose 50%-Water Inj 50 Ml Syringe) 25 ml IV Q15MIN PRN PRN Reason: BG 50-70 responsive npo pt Stop: 11/08/24 00:48 Dextrose (Dextrose 50%-Water Inj 50 Ml Syringe) 50 ml IV Q15MIN PRN PRN Reason: BG <50 OR BG <70 & pt unresponsive Stop: 11/08/24 00:48 Glucagon (Glucagon Inj 1 Mg Vial) 1 mg IM Q15MIN PRN PRN Reason: BG <70, and no IV access Heparin Sodium (Porcine) (Heparin Sod Inj 5000 Unit/Ml Vial) 5,000 unit SC Q12HR [facility] Stop: 10/23/24 08:59 Last Admin: 10/09/24 08:18 Dose: 5,000 unit Magnesium Sulfate (Magnesium Sulfate Ivpb) 2 gm in 50 mls @ 25 mls/hr IV X1 ONE Stop: 10/09/24 11:03 Last Admin: 10/09/24 09:27 Dose: 25 mls/hr Insulin Human Lispro (Insulin Lispro (Admelog) 1 Unit/0.01 Ml Unit) 0 unit SC [facility]; Protocol Stop: 11/08/24 07:29 Last Admin: 10/09/24 07:59 Dose: Not Given Losartan Potassium (Losartan Potassium 25 Mg Tablet) 50 mg PO QDAY [facility] Stop: 11/09/24 08:59 Metoprolol Succinate (Metoprolol Succinate Xl 25 Mg Tabcr) 25 mg PO QDAY [facility] Stop: 11/08/24 10:14 Morphine Sulfate (Morphine Sulf Inj 10 Mg/Ml Vial) 1 mg IVP Q4HR PRN PRN Reason: Pain 7-10 Stop: 10/14/24 01:36 Last Admin: 10/09/24 08:19 Dose: 1 mg Nifedipine (Nifedipine Xl 30 Mg Tabcr) 30 mg PO QDAY [facility] Stop: 11/08/24 20:59 Nitroglycerin (Nitroglycerin 0.4 Mg Subl Btl #25) 0.4 mg SL Q5MIN PRN PRN Reason: CHEST PAIN Ondansetron HCl (Ondansetron Inj 2 Mg/Ml Inj 2 Ml) 4 mg IV Q6H PRN; Protocol PRN Reason: NAUSEA OR VOMITING Stop: 11/08/24 00:43 Sennosides (Senna Tablet) 1 tab PO QDAY HARI; Protocol Stop: 11/08/24 08:59 Last Admin: 10/09/24 08:18 Dose: 1 tab Discontinued Medications Acetaminophen (Acetaminophen 500 Mg Tablet) 1,000 mg PO X1 ONE Stop: 10/08/24 22:42 Last Admin: 10/08/24 22:55 Dose: 1,000 mg Aspirin (Aspirin 325 Mg Tablet) 325 mg PO X1 ONE Stop: 10/09/24 00:50 Last Admin: 10/09/24 00:54 Dose: 325 mg Atorvastatin Calcium (Atorvastatin Calcium 20 Mg Tablet) 80 mg PO X1 ONE Stop: 10/09/24 01:56 Last Admin: 10/09/24 03:18 Dose: 80 mg Sodium Chloride (Ns) 1,000 mls @ 999 mls/hr IV .Q1H1M ONE Stop: 10/08/24 23:38 Last Infusion: 10/08/24 23:57 Dose: Infused Sodium Chloride (Ns) 500 mls @ 999 mls/hr IV .Q31M ONE Stop: 10/09/24 00:36 Last Infusion: 10/09/24 01:27 Dose: Infused Magnesium Sulfate (Magnesium Sulfate Ivpb) 2 gm in 50 mls @ 25 mls/hr IV X1 ONE Stop: 10/09/24 12:02 Losartan Potassium (Losartan Potassium 25 Mg Tablet) 50 mg PO X1 ONE Stop: 10/09/24 09:02 Last Admin: 10/09/24 09:28 Dose: 50 mg Nifedipine (Nifedipine Xl 30 Mg Tabcr) 30 mg PO X1 ONE Stop: 10/09/24 00:56 Last Admin: 10/09/24 01:47 Dose: 30 mg Nifedipine (Nifedipine Xl 30 Mg Tabcr) 30 mg PO QDAY HARI Stop: 11/08/24 08:59 Potassium Chloride (Potassium Chloride 20 Meq Tabcr) 40 meq PO X1 ONE Stop: 10/09/24 09:04 Last Admin: 10/09/24 09:27 Dose: 40 meq Potassium Chloride (Potassium Chloride 20 Meq Tabcr) 20 meq PO X1 ONE Stop: 10/09/24 09:06 Last Admin: 10/09/24 09:28 Dose: 20 meq Assessment & Plan Plan 74-year-old female with past medical history of uncontrolled essential hypertension and DM2 was admitted to the hospital on 10/09/2024 due to elevated troponins. 1. Possible SVT versus atrial flutter versus paroxysmal A-fib 2. NSTEMI ? Patient's initial EKG showed sinus tachycardia with occasional PVCs. ? Patient's troponins peaked at 0.27 before downtrending ? Patient has been complaining of chest pain since she was in the ER which she described as pressure-like and was worsened with palpation and can be worsened by breathing as well. ? During assessment patient did develop some episodes of SVTs unsustained with heart rate in the 160s before going back to 70s or 80s. ? Elevated troponins could be due to patient being in and out of SVT which could be secondary to dehydration given lab results. ?Echo on 08/09/2024 had the following findings: Normal LV size and function. Grade I diastolic dysfunction. Estimated EF 60-65% Normal RV size and function. Trace MR, TR. Mild AV sclerosis without stenosis. ? Patient's NSTEMI is most likely secondary to episodes of SVTs and her chest discomfort could also be likely due to these episodes of SVTs versus A-fib versus atrial flutter. Plan: ? Recommend to start patient on metoprolol XL 25 mg daily ?Recommend to replete magnesium with a total of 4 g and replete potassium with a total of 100 mEq. ?Patient will be placed n.p.o. for now in the setting that she does developed SVT and there were some EKG changes along with troponemia and will be taken for heart cath. ? Recommend to replete potassium magnesium aggressively to keep above 4 and 2 to avoid any further arrhythmias 3. Hypertensive emergency 4. Uncontrolled hypertension ?Patient mentioned that her blood pressure at home has been in the 200s ? Initial blood pressure was 162/77 and has been elevated with the highest up to the 191/119's ?This could also be contributing to patient's elevated troponins as well. Plan: ? Recommend to continue patient on losartan, nifedipine, and metoprolol and titrate as blood pressure allows. ?Recommend tight blood pressure control 5. DM2 6. EUGENIA ? Continue current management as per primary care team Continue rest of management as per primary team. We are grateful to be able to participate in Mrs. Chan's care. Thank you for the consult Plan of care discussed with attending Senior Materials Planner, Dr Tara Stevens MD PGY-1 Attending Provider Attestation/Addendum I have personally seen and examined the patient separately on the above date of service and discussed the plan of care with the resident. I reviewed the resident Dr. Blanco consultation note and agree with the resident findings and plan in the note above and have also edited the documentation to reflect my findings and plan. Mich Pacheco M.D. Interventional Cardiology
--- NOTE | 2024-10-09 11:18 | ESPR_ITS ---
<Statement entered by Mitchell Coffman MD - 10/09/24 16:30> Patient was seen and examined by me personally. I agree with most of the assessment and plan as discussed with the international banker physician, and my attending, Dr. May. Vitals, labs reviewed. Status postcardiac cath with moderate CAD. Appreciate cardiology recommendations. Will continue aspirin, statin, metoprolol. Resuming home antihypertensives, improved BP noted. Replete electrolytes and keep potassium above 4, mag above 2. EUGENIA improving. Mitchell Coffman MD, PGY-3 Documentation for date of: 10/09/24 Subjective Subjective Interval history: Patient was seen and examined bedside. Reported that she is still having pain having chest pain, center of the chest without any radiation, not associated with palpitations, sweating. Dr. Pacheco was consulted and did left and right heart catheterization which showed moderate CAD and recommended aspirin, atorvastatin. Recommended to titrate metoprolol based on her heart rate. Exam Vital Signs Temp Pulse Resp BP Pulse Ox O2 Del Method 97.6 F 80 16 156/70 H 97 Room Air 10/09/24 09:47 10/09/24 09:47 10/09/24 09:47 10/09/24 09:47 10/09/24 09:47 10/09/24 09:47 Narrative Exam General: Awake. Lying comfortably on the bed HEENT: Normocephalic, atraumatic, mucous membranes moist. Heart: Regular rate and rhythm, no murmurs. Lungs: Clear to auscultation with no wheezing or crackles. Abdomen: Soft, nondistended, nontender, positive bowel sounds. ?No guarding or rebound tenderness. Neurologic: Alert and oriented x3, no gross neurological deficit, and patient able to move all 4 extremities. Extremities: No edema. Skin: No rash or ecchymoses. Objective Labs 10/10/24 04:15 10/10/24 04:15 Labs: Laboratory Results - last 24 hr 10/08/24 10/08/24 10/08/24 18:53 20:04 20:49 WBC 9.7 RBC 4.62 Hgb 13.1 Hct 38.6 MCV 84 MCH 28.4 MCHC 33.9 RDW Std Deviation 42.7 Plt Count 246 Neut % (Auto) 68 Lymph % (Auto) 21 Webster % (Auto) 9 Eos % (Auto) 1 Baso % (Auto) 1 Neut # (Auto) 6.5 Lymph # (Auto) 2.1 Webster # (Auto) 0.9 H Eos # (Auto) 0.1 Baso # (Auto) 0.1 Immature Gran # (Auto) 0.03 H Absolute Nucleated RBC 0.00 Immature Gran % 0 Nucleated RBC % 0 Sodium 138 Potassium 3.6 Chloride 104 Carbon Dioxide 23.1 Anion Gap 11 BUN 29 H Creatinine 1.6 H Estim Creat Clear Calc Not Performed. eGFR 33 L BUN/Creatinine Ratio 18 Glucose 153 H Calculated Osmolality 284 Calcium 11.4 H Corrected Calcium 11.4 H Phosphorus Magnesium Total Bilirubin 0.4 AST 27 ALT 21 Alkaline Phosphatase 91 Troponin I 0.262 H* 0.268 H* Total Protein 7.7 Albumin 5.3 H Globulin 2.4 Albumin/Globulin Ratio 2.2 TSH Ur Collection Type Clean Catch Urine Color Lt-Yellow Urine Clarity Clear Urine pH 7.5 H Ur Specific Wayne 1.009 Urine Protein Negative Urine Glucose (UA) Negative Urine Ketones Negative Urine Blood Negative Urine Nitrite Negative Urine Bilirubin Negative Urine Urobilinogen (Auto) Negative Ur Leukocyte Esterase Positive Urine RBC 2 Urine WBC 5 Ur Squamous Epith Cells 1 Urine Bacteria None Urine Opiates Screen Negative Urine Fentanyl Screen Negative Ur Barbiturates Screen Negative U Amphetamin/Meth Scrn Negative U Benzodiazepines Scrn Negative U Cocaine Metab Screen Negative U Marijuana (THC) Screen Negative 10/09/24 10/09/24 10/09/24 01:11 04:56 07:59 WBC 6.6 RBC 4.26 Hgb 12.0 Hct 34.7 L MCV 82 MCH 28.2 MCHC 34.6 RDW Std Deviation 41.1 Plt Count 182 D Neut % (Auto) 60 Lymph % (Auto) 26 Webster % (Auto) 11 Eos % (Auto) 2 Baso % (Auto) 1 Neut # (Auto) 4.0 Lymph # (Auto) 1.7 Webster # (Auto) 0.7 Eos # (Auto) 0.1 Baso # (Auto) 0.0 Immature Gran # (Auto) 0.02 H Absolute Nucleated RBC 0.00 Immature Gran % 0 Nucleated RBC % 0 Sodium 141 Potassium 3.3 L Chloride 109 H Carbon Dioxide 23.4 Anion Gap 9 BUN 31 H Creatinine 1.3 Estim Creat Clear Calc Not Performed. eGFR 43 L BUN/Creatinine Ratio 24 H Glucose 110 H Calculated Osmolality 288 Calcium 10.5 Corrected Calcium 10.5 H Phosphorus 2.9 Magnesium 2.0 Total Bilirubin 0.5 AST 15 ALT 18 Alkaline Phosphatase 79 Troponin I 0.279 H* 0.256 H* Total Protein 6.7 Albumin 4.7 D Globulin 2.0 L Albumin/Globulin Ratio 2.4 H TSH 0.80 Ur Collection Type Urine Color Urine Clarity Urine pH Ur Specific Wayne Urine Protein Urine Glucose (UA) Urine Ketones Urine Blood Urine Nitrite Urine Bilirubin Urine Urobilinogen (Auto) Ur Leukocyte Esterase Urine RBC Urine WBC Ur Squamous Epith Cells Urine Bacteria Urine Opiates Screen Urine Fentanyl Screen Ur Barbiturates Screen U Amphetamin/Meth Scrn U Benzodiazepines Scrn U Cocaine Metab Screen U Marijuana (THC) Screen Quality Measures Quality Measures VTE prophylaxis Advance care planning discussed with:: patient Assessment & Plan Assessment Current Active Medications: Generic Name Dose Route Start Last Admin Trade Name Freq PRN Reason Stop Dose Admin Acetaminophen 650 mg 10/09/24 00:44 Acetaminophen 325 Mg Tablet PO 11/08/24 00:43 Q6H PRN Pain 1-3 and/or Fever >100.1 Aspirin 81 mg 10/10/24 09:00 Aspirin Ec 81 Mg Tabec PO 11/09/24 08:59 QDAY HARI Atorvastatin Calcium 80 mg 10/10/24 21:00 Atorvastatin Calcium 20 Mg Tablet PO 11/09/24 20:59 HS HARI Dextrose 25 ml 10/09/24 00:49 Dextrose 50%-Water Inj 50 Ml Syringe IV 11/08/24 00:48 Q15MIN PRN BG 50-70 responsive npo pt Dextrose 50 ml 10/09/24 00:49 Dextrose 50%-Water Inj 50 Ml Syringe IV 11/08/24 00:48 Q15MIN PRN BG <50 OR BG <70 & pt unresponsive Glucagon 1 mg 10/09/24 00:49 Glucagon Inj 1 Mg Vial IM Q15MIN PRN BG <70, and no IV access Heparin Sodium (Porcine) 5,000 unit 10/09/24 09:00 10/09/24 08:18 Heparin Sod Inj 5000 Unit/Ml Vial SC 10/23/24 08:59 5,000 unit Q12HR HARI Administration Insulin Human Lispro 0 unit 10/09/24 07:30 10/09/24 07:59 Insulin Lispro (Admelog) 1 Unit/0.01 Ml Unit SC 11/08/24 07:29 Not Given ACHS [facility] Protocol Losartan Potassium 50 mg 10/10/24 09:00 Losartan Potassium 25 Mg Tablet PO 11/09/24 08:59 QDAY HARI Metoprolol Succinate 25 mg 10/09/24 10:15 Metoprolol Succinate Xl 25 Mg Tabcr PO 11/08/24 10:14 QDAY [facility] Morphine Sulfate 1 mg 10/09/24 01:37 10/09/24 08:19 Morphine Sulf Inj 10 Mg/Ml Vial IVP 10/14/24 01:36 1 mg Q4HR PRN Administration Pain 7-10 Nifedipine 30 mg 10/09/24 21:00 Nifedipine Xl 30 Mg Tabcr PO 11/08/24 20:59 QDAY [facility] Nitroglycerin 0.4 mg 10/09/24 00:49 Nitroglycerin 0.4 Mg Subl Btl #25 SL Q5MIN PRN CHEST PAIN Ondansetron HCl 4 mg 10/09/24 00:44 Ondansetron Inj 2 Mg/Ml Inj 2 Ml IV 11/08/24 00:43 Q6H PRN NAUSEA OR VOMITING Protocol Sennosides 1 tab 10/09/24 09:00 10/09/24 08:18 Senna Tablet PO 11/08/24 08:59 1 tab QDAY [facility] Administration Protocol Plan 74 year old female with a past medical history of poorly-controlled hypertension, diabetes mellitus type 2 non insulin dependent, and possible coronary artery disease (followed by Dr. Box over 10 years ago) presents to the emergency room with a chief complain of dizziness and later developed left sided chest pain while waiting in the ED will be admitted for workup for possible ACS, NSTEMI type I as she does have history of CAD, will consult cardiology for recommendation. #Elevated Troponin #NSTEMI Type II, ruled out ACS #Likely due to uncontrolled HTN Patient presenting initially with headache/dizziness; however, during waiting she developed left-sided chest pain which she explains feels like bricks on her chest ALEXANDRO ACS score of 107?points 5?% Probability of from admission to 6 months Patient has remote history of following with Dr. Box, cardiology almost 10 years ago Patient denies having any cardiac stent placed ECHO from 08/17/2024 shows: Normal LV size and function. Grade I diastolic dysfunction. Estimated EF 60-65% Normal RV size and function. Trace MR, TR. Mild AV sclerosis without stenosis. She has risk factors for CAD; history of smoking, uncontrolled hypertension, type 2 diabetes, obesity Troponin went from 0.262 => 0.268 => 0.279 >0.256 Given aspirin 325, aspirin 81 daily following Trending troponin, next one @ 7am 10/09 Telemetry admit Nitroglycerin sublingual, max dose of 3 as needed every 5 minutes Morphine 1 mg every 4 hours added for pain control Plan: Cardiology, Dr. Pacheco, Left and right heart catheterisation showed moderate CAD and no active intervention done Will continue aspirin, atorvastatin Started on metoprolol 50 Mg and will titrate according to blood pressure and heart rate. #Hypertension #Dizziness/Headache likely due to poorly controlled HTN She takes Lasix 20, nifedipine 30, valsartan 320, hydralazine 100 Patient states she stopped taking Clonidine 0.2mg po bid at her own will Presenting with elevated BP in the ED; however, she has not taken any of her home medications due to feeling acutely ill Head CT shows no evidence of intracranial hemorrhage, mass effect or midline shift; however, there are chronic small vessel ischemic changes noted. Plan: Started nifedipine 30mg po qday, clonidine 0.2 Mg, hydralazine 100 Mg p.o. twice daily Will monitor blood pressures and titrate medications accordingly. #EUGENIA recovering, #Prerenal Azotemia Baseline Cr 1-1.2 Currently presenting with Cr 1.6 > Cr 1.3 Likely in the setting of prerenal azotemia; poor po intake Urinanalysis wnl IVF given in ED Plan: Will continue to monitor renal functions Will renally dose the medications and avoid nephrotoxic medications #Non-insulin dependent Type 2 DM 08/17 A1c of 5.8 On home metformin 500mg po qday Plan: SSI Bedside glucose ACHS #Hyperlipidemia High-intensity statin recommended because of known diabetes and 10-year risk >=.5%. If LDL <70mg/dl (1.81 mmol/L) 48.5% Risk of cardiovascular event (coronary or stroke or non-fatal KS or stroke) in next 10 years. 12.0% 10-year cardiovascular risk if risk factors were optimal. On home rosuvastatin 10mg po qday Plan: Will start high intensity statin Hospital Management: Lines: PIV Diet: Cardiac and carb consistent low Bowel: Senna GI prophylaxis: Not needed DVT prophylaxis: Heparin subq Dispo:tele Code: Full Patient plan of care was discussed with the attending physician, Dr. May and senior resident Dr. Meghna Christianson, PGY1 Attending Provider Attestation/Addendum I reviewed labs, imaging, EKG, home medications and prior available records. Face to face evaluation was performed by me. I have personally examined the patient and discussed assessment and plan with the IM team. I reviewed the resident note and agree with the plan with exceptions as below. Non-STEMI Tachyarrhythmia Hypertensive emergency EUGENIA Troponin peaked however she is still having active chest complaints. Consulted cardiology: Plan for cardiac catheterization. Continue aspirin and statin. Telemetry showed A-fib with RVR. Started metoprolol XL. Continue telemetry. Resume home BP medications. IV labetalol as needed for SBP more than 180 Creatinine improved. Monitor kidney function. Avoid nephrotoxins. Renally dosed medications
[2024-10-09 11:58] LABS: INR 1.1 (0.9-1.3); Partial Thromboplastin Time 24.1 Seconds (22.0-36.0); Prothrombin Time 11.6 Seconds (9.0-12.2)
[2024-10-09] MEDS: hydrALAZINE HCL 25 MG TABLET 100 MG PO ×2 (14:43→20:02)
[2024-10-09] MEDS: LABETALOL INJ 5 MG/ML VIAL 20 ML 20 MG IVP (15:37)
--- NOTE | 2024-10-09 16:13 | PC.NURSE ---
patient transfered to tele room 260 via [facility]. hand off report given to kandice at bedside. report also given to ronnie via telephone. right kallie puncture site is soft, flat, slighly tender and no hematoma present. dressing is clean dry and intact. femoral and dorsalis pedis pulse present. patient alert and oriented. gcs of 15.
--- NOTE | 2024-10-09 18:25 | ESOP_ITS ---
Cardiac Cath Procedure Procedure Name Date of procedure: 10/09/2024 SALESPERSON HANDBAGS: Mich Pacheco MD PROCEDURE PERFORMED: 1. Left heart cardiac catheterization including right, left coronary angiograms and left ventriculogram 2. Ultrasound-guided access of the right radial artery 3. Conscious sedation for 30 minutes. Procedure Narrative HISTORY AND INDICATIONS: 74-year-old female with past medical history of type 2 diabetes mellitus, essential hypertension, hyperlipidemia, morbid obesity presented to the hospital for complaining of dizziness and headaches along with some chest pain when she was in the emergency department. Cardiology was consulted for elevated troponins initial troponin was 0.262 and peaked at 0.279. Patient significant risk factors of CAD and hence was recommended an urgent left heart cardiac catheterization for the NSTEMI type II. EKG which shows sinus tachycardia with occasional PVCs. 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 Consent signed, placed in the chart and H&P updated. DESCRIPTION OF PROCEDURE: The patient was brought to the cardiac catheterization lab and all asceptic precautions were followed. Patient was given 1 Mg of Versed and 50 mcg of fentanyl for moderate conscious sedation. 2 mL of lidocaine was given in the right wrist. The right radial artery was accessed via the ultrasound guidance as well as micropuncture technique. A 6 Kinyarwanda glide sheath was introduced. We then used a 5 Kinyarwanda TIG 4 catheter to perform the left and right coronary angiograms as well as a left ventriculogram which showed the following findings. 1. Left ventricular function appears normal with an EF greater than 70%, LVEDP low at 2 mmHg and there was no significant transvalvular gradient. 2. Left main artery is a large sized artery with minimal luminal irregularit ies. 3. LAD is a large sized artery with moderate 40 to 50% stenosis in the mid LAD and the diagnosed without any major significant disease 4. LCx is a large size artery moderate 40 to 50% stenosis in the mid LCx as well as a proximal LCx and 60-70% stenosis in the distal small LCx 5. RCA is a large size artery with only minimal improvement mellitus and RPDA without any significant obstruction. A radial band was used to achieve the hemostasis of the right radial artery access. Patient will be monitored in the cardiac health and wellness coach for the next 2 to 3 hours and will be discharged home / telemetry later today if hemodynamically stable. Complications: None Specimens: None Blood loss: Estimated 5-10 ml Summary: 1. NSTEMI: Elevated troponins at 0.279 [facility] completed showed moderate CAD with 40 to 50% stenosis in the mid LAD, proximal LCx, mid LCx as well as's 60 to 70% stenosis in the very small distal LCx. RCA, left main, rest of the arteries with only minimal luminal irregularities. 2. LVEF normal at greater than 70%, LVEDP 22 mmHg and there was no significant transvalvular aortic gradient Recommendations: 1. Aggressive medical management including aspirin 81 mg once daily, Lipitor 80 mg once daily, beta-elizabeth if blood pressure permissible. 2. Recommended aggressive risk factor medication including strict control of hypertension, diabetes mellitus, hyperlipidemia 3. Recommend patient to not lift more than 5 pounds for the next 7 to 10 days and follow-up in the office for further evaluation and treatment for the CAD. Mich Pacheco MD Interventional Cardiology.
--- NOTE | 2024-10-09 18:53 | EKG_ITS ---
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
[2024-10-10] VITALS (13 sets, daily range): BP systolic 114–185; BP diastolic 71–95; PULSE 58–88; RESP 13–96; TEMP 36.1–36.7; O2SAT 96–98
[2024-10-10] MEDS: DiphenhydrAMINE 25 MG CAPSULE 50 MG PO (01:54)
[2024-10-10] MEDS: LABETALOL INJ 5 MG/ML VIAL 20 ML 10 MG IVP ×2 (03:59→04:56)
[2024-10-10 05:25] LABS: Basophils % (Auto) 1 % (0-2.5); Eosinophils # (Auto) 0.1 Thou/mm3 (0.0-0.5); Eosinophils % (Auto) 1 % (0-10); Hemoglobin 11.7 g/dL (12.0-16.0); Immature Granulocytes % (Auto) 0 % (0-0); Immature Granulocytes Auto 0.03 Thou/mm3 (0.00-0.00); Lymphocytes # (Auto) 1.5 Thou/mm3 (1.0-4.8); Lymphocytes % (Auto) 19 % (10-50); Mean Corpuscular HGB Conc 33.4 g/dl (31.0-37.0); Mean Corpuscular Hemoglobin 27.8 pg (25.0-35.0); Mean Corpuscular Volume 83 fL (80-100); Monocytes # (Auto) 0.7 Thou/mm3 (0.0-0.8); Monocytes % (Auto) 9 % (0-12); Neutrophils # (Auto) 5.5 Thou/mm3 (1.8-7.7); Neutrophils % (Auto) 70 % (37-80); Nucleated Red Blood Cell % 0 /100 WBC (0); Platelet Count 182 Thou/mm3 (140-440); RDW Standard Deviation 43.1 fL (36.4-46.3); Red Blood Count 4.21 Miln/mm3 (4.00-5.20); White Blood Count 7.8 Thou/mm3 (3.6-11.0)
[2024-10-10 06:03] LABS: Alanine Aminotransferase 16 U/L (10-49); Albumin, Serum 4.7 gm/dL (3.4-4.8); Albumin/Globulin Ratio 2.2 (1.2-2.2); Alkaline Phosphatase 74 U/L (46-116); Anion Gap 9 (7-16); Aspartate Amino Transferase 13 U/L (0-34); BUN/Creatinine Ratio 23 Ratio (12-20); Bilirubin,Total 0.5 mg/dL (0.3-1.2); Blood Urea Nitrogen 25 mg/dL (9-23); Calcium 10.8 mg/dL (8.3-10.6); Calcium (Corrected) 10.8 mg/dL (8.5-10.1); Carbon Dioxide 24.3 mMol/L (20.0-31.0); Chloride 108 mMol/L (98-107); Creatinine (Component) 1.1 mg/dL (0.6-1.3); Estimated Creatinine Clearance 48.1 mL/min (>60); Globulin 2.1 gm/dL (2.3-3.5); Glucose 121 mg/dL (74-106); Magnesium 2.2 mg/dL (1.6-2.6); Osmolality,Calculated 286 (275-295); Potassium 3.8 mMol/L (3.4-5.1); Sodium 141 mMol/L (136-145); Total Protein 6.8 gm/dL (5.7-8.2); eGFR 52 See Note
[2024-10-10] MEDS: SENNA TABLET 1 TAB PO (08:02)
[2024-10-10] MEDS: ASPIRIN EC 81 MG TABEC PO (08:02)
[2024-10-10] MEDS: NIFEdipine XL 30 MG TABCR PO (08:02)
[2024-10-10] MEDS: hydrALAZINE HCL 25 MG TABLET 100 MG PO (08:03)
[2024-10-10] MEDS: cloNIDine HCL 0.1 MG TABLET 0.2 MG PO (08:03)
[2024-10-10] MEDS: LOSARTAN POTASSIUM 25 MG TABLET 50 MG PO (08:03)
[2024-10-10] MEDS: METOPROLOL SUCCINATE XL 25 MG TABCR 50 MG PO (08:04)
[2024-10-10] MEDS: HEPARIN SOD INJ 5000 UNIT/ML VIAL SC (08:05)
--- NOTE | 2024-10-10 10:29 | PD.RESPRO ---
Documentation for date of: 10/10/24 Subjective Subjective Interval history: Patient seen at bedside this morning. No overnight events Repeat EKG did not show any ischemic changes Recommend to continue metorpolol and titrate as BP allows along with statin and aspirin Heart cath yesterday had the following findings 1. NSTEMI: LHC completed showed moderate CAD with 40 to 50% stenosis in the mid LAD, proximal LCx, mid LCx as well as's 60 to 70% stenosis in the small distal LCx. RCA, left main, rest of the arteries with only minimal luminal irregularities. 2. LVEF normal at greater than 70%, LVEDP 22 mmHg and there was no significant transvalvular aortic gradient Exam Vital Signs Temp Pulse Resp BP Pulse Ox O2 Del Method 97.4 F 84 19 185/88 H 97 Room Air 10/10/24 08:00 10/10/24 08:04 10/10/24 08:00 10/10/24 08:04 10/10/24 08:00 10/10/24 08:00 Narrative Exam General: A/O x3, no acute distress, well-nourished, well-developed Eyes: PERRL, EOMI. Anicteric, vision grossly intact. Ears: No ear pain, no ear discharge, Hearing grossly intact. Nose: No nasal discharge. Mouth/Throat: Dry mucous membranes, no redness, no lesions. Neck: Neck supple, non-tender, no cervical lymphadenopathy. Lungs: Clear SHAWN to auscultation and percussion, No accessory muscle use. Cardio: Normal S1/S2, regular rhythm, no murmurs, no JVD. Abdomen: Soft, non-tender, no palpable masses, peristalsis present, no guarding or rebound. Extremities: Symmetrical, no significant deformities, 1+ peripheral edema , non-tender, peripheral pulses presents. Skin: No rashes, no lesions, warm to touch. Neuro: No focal neurological deficits. motor and sensory intact Psych: Cooperative, appropriate mood and effect. Objective Labs 10/10/24 04:15 10/10/24 04:15 Labs: Laboratory Results - last 24 hr 10/09/24 10/10/24 07:59 04:15 WBC 7.8 RBC 4.21 Hgb 11.7 L Hct 35.0 L MCV 83 MCH 27.8 MCHC 33.4 RDW Std Deviation 43.1 Plt Count 182 Neut % (Auto) 70 Lymph % (Auto) 19 Woodward % (Auto) 9 Eos % (Auto) 1 Baso % (Auto) 1 Neut # (Auto) 5.5 Lymph # (Auto) 1.5 Woodward # (Auto) 0.7 Eos # (Auto) 0.1 Baso # (Auto) 0.0 Immature Gran # (Auto) 0.03 H Absolute Nucleated RBC 0.00 Immature Gran % 0 Nucleated RBC % 0 PT 11.6 INR 1.1 APTT 24.1 Sodium 141 Potassium 3.8 D Chloride 108 H Carbon Dioxide 24.3 Anion Gap 9 BUN 25 H Creatinine 1.1 Estim Creat Clear Calc 48.1 L eGFR 52 L BUN/Creatinine Ratio 23 H Glucose 121 H Calculated Osmolality 286 Calcium 10.8 H Corrected Calcium 10.8 H Magnesium 2.2 Total Bilirubin 0.5 AST 13 ALT 16 Alkaline Phosphatase 74 Total Protein 6.8 Albumin 4.7 Globulin 2.1 L Albumin/Globulin Ratio 2.2 Quality Measures Quality Measures none Advance care planning discussed with:: patient Assessment & Plan Assessment Current Active Medications: Generic Name Dose Route Start Last Admin Trade Name Freq PRN Reason Stop Dose Admin Acetaminophen 650 mg 10/09/24 00:44 Acetaminophen 325 Mg Tablet PO 11/08/24 00:43 Q6H PRN Pain 1-3 and/or Fever >100.1 Aspirin 81 mg 10/10/24 09:00 10/10/24 08:02 Aspirin Ec 81 Mg Tabec PO 11/09/24 08:59 81 mg QDAY HARI Administration Atorvastatin Calcium 80 mg 10/10/24 21:00 Atorvastatin Calcium 20 Mg Tablet PO 11/09/24 20:59 HS HARI Clonidine 0.2 mg 10/10/24 09:00 10/10/24 08:03 Clonidine Hcl 0.1 Mg Tablet PO 11/09/24 08:59 0.2 mg QDAY HARI Administration Dextrose 25 ml 10/09/24 00:49 Dextrose 50%-Water Inj 50 Ml Syringe IV 11/08/24 00:48 Q15MIN PRN BG 50-70 responsive npo pt Dextrose 50 ml 10/09/24 00:49 Dextrose 50%-Water Inj 50 Ml Syringe IV 11/08/24 00:48 Q15MIN PRN BG <50 OR BG <70 & pt unresponsive Glucagon 1 mg 10/09/24 00:49 Glucagon Inj 1 Mg Vial IM Q15MIN PRN BG <70, and no IV access Heparin Sodium (Porcine) 5,000 unit 10/09/24 09:00 10/10/24 08:05 Heparin Sod Inj 5000 Unit/Ml Vial SC 10/23/24 08:59 5,000 unit Q12HR HARI Administration Hydralazine HCl 100 mg 10/09/24 14:00 10/10/24 08:03 Hydralazine Hcl 25 Mg Tablet PO 11/08/24 13:59 100 mg BID HARI Administration Insulin Human Lispro 0 unit 10/09/24 07:30 10/10/24 07:42 Insulin Lispro (Admelog) 1 Unit/0.01 Ml Unit SC 11/08/24 07:29 Not Given ACHS HARI Protocol Losartan Potassium 50 mg 10/10/24 09:00 10/10/24 08:03 Losartan Potassium 25 Mg Tablet PO 11/09/24 08:59 50 mg QDAY HARI Administration Metoprolol Succinate 50 mg 10/10/24 09:00 10/10/24 08:04 Metoprolol Succinate Xl 25 Mg Tabcr PO 11/09/24 08:59 50 mg QDAY HARI Administration Morphine Sulfate 1 mg 10/09/24 01:37 10/09/24 08:19 Morphine Sulf Inj 10 Mg/Ml Vial IVP 10/14/24 01:36 1 mg Q4HR PRN Administration Pain 7-10 Nifedipine 30 mg 10/09/24 21:00 10/10/24 08:02 Nifedipine Xl 30 Mg Tabcr PO 11/08/24 20:59 30 mg QDAY HARI Administration Nitroglycerin 0.4 mg 10/09/24 00:49 Nitroglycerin 0.4 Mg Subl Btl #25 SL Q5MIN PRN CHEST PAIN Ondansetron HCl 4 mg 10/09/24 00:44 Ondansetron Inj 2 Mg/Ml Inj 2 Ml IV 11/08/24 00:43 Q6H PRN NAUSEA OR VOMITING Protocol Sennosides 1 tab 10/09/24 09:00 10/10/24 08:02 Senna Tablet PO 11/08/24 08:59 1 tab QDAY HARI Administration Protocol Plan 74-year-old female with past medical history of uncontrolled essential hypertension and DM2 was admitted to the hospital on 10/09/2024 due to elevated troponins. 1. Possible SVT versus atrial flutter versus paroxysmal A-fib 2. NSTEMI ? Patient's initial EKG showed sinus tachycardia with occasional PVCs. ? Patient's troponins peaked at 0.27 before downtrending ? Patient has been complaining of chest pain since she was in the ER which she described as pressure-like and was worsened with palpation and can be worsened by breathing as well. ? During assessment patient did develop some episodes of SVTs unsustained with heart rate in the 160s before going back to 70s or 80s. ? Elevated troponins could be due to patient being in and out of SVT which could be secondary to dehydration given lab results. ?Echo on 08/09/2024 had the following findings: Normal LV size and function. Grade I diastolic dysfunction. Estimated EF 60-65% Normal RV size and function. Trace MR, TR. Mild AV sclerosis without stenosis. ? Patient's NSTEMI is most likely secondary to episodes of SVTs and her chest discomfort could also be likely due to these episodes of SVTs versus A-fib versus atrial flutter. -Heart cath yesterday showed: 1. NSTEMI: LHC completed showed moderate CAD with 40 to 50% stenosis in the mid LAD, proximal LCx, mid LCx as well as's 60 to 70% stenosis in the small distal LCx. RCA, left main, rest of the arteries with only minimal luminal irregularities. 2. LVEF normal at greater than 70%, LVEDP 22 mmHg and there was no significant transvalvular aortic gradient Plan: ? Recommend to continue patient on metoprolol XL 50 mg daily and titrate as BP allows ?Recommend to continue Aspirin and atorvastatin -Recommend patient to not lift more than 5 pounds for the next 7 to 10 days and follow-up in the office for further evaluation and treatment for the CAD. ? Recommend to replete potassium magnesium aggressively to keep above 4 and 2 to avoid any further arrhythmias 3. Hypertensive emergency 4. Uncontrolled hypertension ?Patient mentioned that her blood pressure at home has been in the 200s ? Initial blood pressure was 162/77 and has been elevated with the highest up to the 191/119's ?This could also be contributing to patient's elevated troponins as well. Plan: ? Recommend to continue patient on losartan, nifedipine, and metoprolol and titrate as blood pressure allows. ?Recommend tight blood pressure control 5. DM2 6. EUGENIA ? Continue current management as per primary care team Continue rest of management as per primary team. We are grateful to be able to participate in Mrs. Chan's care. Thank you for the consult Plan of care discussed with attending Telephone Sterilizer, Dr Tara Stevens MD PGY-1 Attending Provider Attestation/Addendum I have personally seen and examined the patient separately on the above date of service and discussed the plan of care with the resident. I reviewed the resident Dr. Blanco consultation progress note and agree with the resident findings and plan in the note above and have also edited the documentation to reflect my findings and plan. Mich Pacheco M.D. Interventional Cardiology
[2024-10-10] MEDS: POTASSIUM CHLORIDE 20 mEq TABCR PO (11:56)
--- NOTE | 2024-10-10 12:48 | PD.RESDS ---
Planned Discharge Date 10/10/24 DS: Providers Provider Date of admission: 10/09/24 00:44 Primary care physician: Yolande Ashton PA-C Admitting Provider: Guilherme Shaffer MD Attending Provider on Admission: Guilherme Shaffer MD Consults: 10/09/24 01:31 Consult to Cardiology Routine Comment: Elevated troponin, active chest pain Consulting Provider: Mich Pacheco Attending Provider on DC: Marlo Christianson MD Discharging Provider: Marlo Christianson MD DS: Diagnosis Problem List Completed Was Problem List Reviewed/Reconciled?: Yes Hospital Course Hospital Course Hospital course: 74 year old female with a past medical history of poorly-controlled hypertension, diabetes mellitus type 2 non insulin dependent, and possible coronary artery disease (followed by Dr. Box over 10 years ago) presents to the emergency room with a chief complain of dizziness and later developed left sided chest pain while waiting in the ED and admitted for uncontrolled Hypertension and EUGENIA. In the ED, blood pressure 162/77, heart rate 83, respiratory rate 19, afebrile satting 100 on room air. Pertinent lab findings included WBC 9.7, BUN 29, creatinine 1.6, glucose 153, calcium 11.4, troponin 0.262. Urinalysis does not show any signs of urinary tract infection. Chest x-ray does not show any active disease; however, EKG is sinus tachycardia. Later EUGENIA resolved. Heart cath done had following findings 1. NSTEMI: LHC completed showed moderate CAD with 40 to 50% stenosis in the mid LAD, proximal LCx, mid LCx as well as's 60 to 70% stenosis in the small distal LCx. RCA, left main, rest of the arteries with only minimal luminal irregularities. 2. LVEF normal at greater than 70%, LVEDP 22 mmHg and there was no significant transvalvular aortic gradient Patient is discharged to the home with the following medications and recommendations -Follow-up with PCP within 1 week of discharge. If you do not have appointment, please follow-up with the [facility] with Dr. Christianson. Call [phone] to make an appointment. -Follow up with in first or second week of October. Call [phone] to make an appointment. -Take atorvastatin 80 Mg, losartan 100 Mg p.o. daily, metoprolol succinate 50 Mg p.o. twice daily, nifedipine 30 Mg p.o. once daily -Stop clonidine, hydralazine, rosuvastatin, valsartan -Continue rest of the home medications -Return to ED if symptoms persist or return #NSTEMI Type II, ruled out ACS #Likely due to uncontrolled HTN #Hypertension #Dizziness/Headache #Non-insulin dependent Type 2 DM #Hyperlipidemia Patient plan of care was discussed with the attending physician, Dr. Yadira Christianson, PGY1 Time Spent with Patient Time attestation: Total time spent providing and/or coordinating discharge services: Time spent: Greater than 30 minutes Exam Vital Signs Temp Pulse Resp BP Pulse Ox O2 Del Method 97.0 F 80 15 114/84 96 Room Air 10/10/24 12:00 10/10/24 12:00 10/10/24 12:00 10/10/24 12:00 10/10/24 12:00 10/10/24 12:00 Narrative Exam General: Awake. HEENT: Normocephalic, atraumatic, mucous membranes moist. Heart: Regular rate and rhythm, no murmurs. Lungs: Clear to auscultation with no wheezing or crackles. Abdomen: Soft, nondistended, nontender, positive bowel sounds. ?No guarding or rebound tenderness. Neurologic: Alert and oriented x3, no gross neurological deficit, and patient able to move all 4 extremities. Extremities: No edema. Skin: No rash or ecchymoses. Discharge Plan Plan Patient Disposition: HOME (Self Care) Patient condition on transfer: Stable Care Plan Goals: -Follow-up with PCP within 1 week of discharge. If you do not have appointment, please follow-up with the [facility] with Dr. Christianson. Call [phone] to make an appointment. -Follow up with in first or second week of October. Call [phone] to make an appointment. -Take atorvastatin 80 Mg, losartan 100 Mg p.o. daily, metoprolol succinate 50 Mg p.o. twice daily, nifedipine 30 Mg p.o. once daily -Stop clonidine, hydralazine, rosuvastatin, valsartan -Continue rest of the home medications -Return to ED if symptoms persist or return Prescriptions/Referrals Prescriptions/Med Rec: New atorvastatin 80 mg tablet 80 mg PO HS 30 Days Qty: 30 1RF metoprolol succinate 50 mg tablet extended release 24 hr 50 mg PO BID 30 Days Qty: 60 1RF nifedipine 30 mg Tablet Extended Release 24hr 30 mg PO QDAY 30 Days Qty: 30 1RF losartan 100 mg tablet 100 mg PO QDAY 30 Days Qty: 30 1RF Continued diphenhydramine HCl 50 MG capsule 50 mg PO QHSPRN PRN (Reason: Sleep) Qty: 0 metformin [Glucophage] 500 MG tablet 500 mg PO DAILY Qty: 0 gabapentin 300 MG capsule 300 mg PO BID Qty: 0 hydrocodone-acetaminophen 10-325 mg tablet 1 tab PO PRN PRN (Reason: Pain) aspirin 81 mg Tablet 81 mg PO QDAY loratadine 10 mg Tablet 10 mg PO QDAY PRN (Reason: Allergies) Discontinued valsartan [Diovan] 320 MG tablet 320 mg PO QDAY Qty: 0 clonidine HCl [Catapres] 0.2 MG tablet 1 tab PO DAILY Qty: 0 rosuvastatin 10 mg tablet 10 mg PO QDAY Patient Comments: TAKE 1 TABLET BY MOUTH EVERY NIGHT FOR CHOLESTEROL hydralazine 100 mg tablet 100 mg PO TID 60 Days Qty: 180 0RF Referrals: Yolande Ashton PA-C [Primary Care Provider] - Patient/Caregiver Discharge Instructions Education Materials: Heart Attack Meds, Heart Attack Questions Print Language: Andorran Stand Alone Forms: Lizabeth Award Info., Patient Portal Info Letter Discharge Order Discharge Orders: Discharge (Routine); Ordered 10/10/24 Ordered By: Marlo Christianson Quality Discharge Quality Measures VTE prophylaxis Attestestation Attestation I reviewed labs, imaging, EKG, home medications and prior available records. Face to face evaluation was performed by me. I have personally examined the patient and discussed assessment and plan with the IM team. I reviewed the resident note and agree with the plan with exceptions as below. Non-STEMI Tachyarrhythmia Hypertensive emergency EUGENIA Status post cardiac catheterization that showed moderate CAD. Continue aspirin and statin. Continue metoprolol. Follow-up with cardiology as outpatient. Telemetry showed A-fib with RVR. Started metoprolol XL. Outpatient cardiology follow-up. Echo showed preserved EF of 60 to 65%. Grade 1 diastolic dysfunction. Resume home BP medications. Monitor BP at home. Creatinine improved. Monitor kidney function as outpatient. Avoid nephrotoxins. Renally dosed medications. Time spent is 40 minutes. More than 50% of the time was spent on patient education and coordination of care.
== END 2024-10-10 20:11 | disposition home or self-care (01) | DRG 281 ==
LOC: SERX 20:27 → SERHOLD 10-09 01:17 → S2NX 10-09 16:03
PROVIDERS: Internal Medicine Cardiovascular Disease; Nurse Practitioner Family; Physician Assistant; Student in an Organized Health Care Education/Training Program; Admitting Provider Internal Medicine; Emergency Provider Emergency Medicine; PCP Physician Assistant; Visit Provider Internal Medicine
PROC: 4A023N7 Measurement of Cardiac Sampling and Pressure, Left Heart, Percutaneous Approach (ICD-10-PCS; principal; 2024-10-09 12:30)
DX: I16.1 Hypertensive emergency (principal); N17.9 Acute kidney failure, unspecified; I21.A1 Myocardial infarction type 2; E11.9 Type 2 diabetes mellitus without complications; I25.10 Atherosclerotic heart disease of native coronary artery without angina pectoris; I10 Essential (primary) hypertension; E78.5 Hyperlipidemia, unspecified; I49.3 Ventricular premature depolarization; I08.2 Rheumatic disorders of both aortic and tricuspid valves; E66.01 Morbid (severe) obesity due to excess calories; I48.91 Unspecified atrial fibrillation; Z87.891 Personal history of nicotine dependence; Z68.39 Body mass index [BMI] 39.0-39.9, adult; Z79.84 Long term (current) use of oral hypoglycemic drugs; Z79.899 Other long term (current) drug therapy; Z79.82 Long term (current) use of aspirin
CPT/HCPCS: 36415; 70450; 71045; 80053; 80307; 81001; 83735; 84100; 84443; 84484; 85025; 85610; 85730; 93005; 93306; 96361; 96365; 96366; 96372; 96375; 99152; 99153; 99285; A4649; C1760; C1894; J0360; J0461; J1643; J2250; J2270; J2310; J2371; J3010; J3475; J3490; J7030; J7040; Q9967; A9270; J1644; J1920; J2305

== ENCOUNTER 2024-12-28 01:56 | Inpatient (IN) | payer OTHER, MEDICAID, MEDICARE, SELFPAY ==
[2024-12-28] VITALS (37 sets, daily range): BP systolic 121–254; BP diastolic 45–133; PULSE 42–76; RESP 12–20; TEMP 36.2–36.9; O2SAT 93–99; BMI 35.1; BMI 36.3
--- NOTE | 2024-12-28 | XR_ITS ---
EXAMINATION: MR head/brain wo con ORDERING PROVIDER: Kodi Donato MD HISTORY: Right hand apraxia, hypertensive urgency TECHNIQUE: Multiplanar multisequence magnetic resonance images were obtained of the brain without contrast. COMPARISON: 12/28/2024, CT head. FINDINGS: There are several punctate foci of mild diffusion restriction in the right greater than left semicentrum ovale, including series 5 image 18. This is in the setting of significant periventricular and subcortical white matter T2/FLAIR hyper intensities, which extend into the bilateral semicentrum ovale. There is a T2 hyperintensity in the left thalamus. Additional T2 hypointensity corresponding to hypodensity on prior CT seen within the hero. This does not restrict, and is hypointense on FLAIR imaging. There is no abnormal susceptibility, mass effect, or midline shift. Ventricles are preserved. Basal cisterns are preserved. Major intracranial flow voids are intact. Globes grossly unremarkable. Sinuses and mastoid air cells clear. Posterior fossa unremarkable. IMPRESSION: Punctate foci of mildly restricted diffusion in the bilateral right greater than left semicentrum ovale. 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 Differential includes small foci of acute on chronic ischemia, atypical demyelinating process, and infectious etiologies. Consider correlation with contrast-enhanced brain MRI. Discussed with Dr. Rosa at 2:45 PM 12/28/2024 via telephone.
--- NOTE | 2024-12-28 03:04 | EKG_ITS ---
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
--- NOTE | 2024-12-28 03:11 | PD.EDCHEST ---
ED Chest Pain RME/HPI General Chief Complaint: Chest Pain Stated Complaint: CHEST PAIN Source: patient and EMS Arrival date/time: 12/28/24 01:56 Mode of arrival: EMS RME / HPI RME / HPI narrative: Dr. Armenta?s Main ED Evaluation: Related Data Home Medications ?Medication ?Instructions ?Recorded ?Confirmed diphenhydramine HCl 50 mg capsule 50 mg PO QHSPRN PRN Sleep ##0 10/17/13 08/16/24 metformin 500 mg tablet 500 mg PO DAILY #0 tabs 10/17/13 08/16/24 (Glucophage) gabapentin 300 mg capsule 300 mg PO BID #0 caps 07/09/14 08/16/24 aspirin 81 mg tablet 81 mg PO QDAY 08/16/24 08/16/24 hydrocodone 10 mg-acetaminophen 1 tab PO PRN PRN Pain 08/16/24 08/16/24 325 mg tablet loratadine 10 mg tablet 10 mg PO QDAY PRN Allergies 08/16/24 08/16/24 Previous Rx's ?Medication ?Instructions ?Recorded atorvastatin 80 mg tablet 80 mg PO HS 30 days #30 tabs 10/10/24 losartan 100 mg tablet 100 mg PO QDAY 30 days #30 tabs 10/10/24 metoprolol succinate 50 mg 50 mg PO BID 30 days #60 tabs 10/10/24 tablet,extended release 24 hr nifedipine 30 mg tablet,extended 30 mg PO QDAY 30 days #30 tabs 10/10/24 release 24 hr Allergies Allergy/AdvReac Type Severity Reaction Status Date / Time pseudoephedrine AdvReac Severe RAPID Verified 10/08/24 17:43 HEART BEAT Review of Systems Review of Systems Systems Reviewed: All systems reviewed, normal except as documented Past Medical History Past Medical History CARDIAC: Positive Cardiac Disorders and Hypertension; Negative Congestive Heart Failure RESPIRATORY: Negative Chronic Obstructive Pulmonary Disease (COPD) GENITOURINARY: Negative Renal Disease ENDOCRINE: Positive Endocrine Disorders and Diabetes Mellitus Type 2; Negative Diabetes Mellitus Type 1 OTHER HISTORY: Negative Blood Transfusions Surgical History SURGICAL: Positive Hysterectomy (Partial) Social History SMOKING STATUS: Never smoker ED Exam Narrative Physical exam: GENERAL: In general the patient is awake, interactive, in an emergency department gurney. HEAD/EYES/EARS/NOSE/THROAT: normo-cephalic, atraumatic, mucus membranes are moist. No cervical tenderness palpation midline. Supple neck. CARDIOVASCULAR: regular rate and regular rhythm, no murmurs, heart sounds are not distant, strong pulses in all four extremities that are equal and symmetric bilateral upper and lower extremities, normal capillary refill. CHEST/PULMONARY: normal chest rise and fall, good air movement, clear to auscultation bilaterally, normal inspiratory to expiratory ratios without evidence of respiratory distress. ABDOMEN: soft, not tender, no masses appreciated BACK: normal range of motion without pain. NEUROLOGICAL: cranio-facial features are symmetric, moves all four extremities equally without obvious limitations or weakness. EXTREMITY: no tenderness to palpation over the long bones or large joints of the bilateral upper and lower extremities, no joint swelling, no joint erythema, no signs of trauma, no unilateral leg swelling and no peripheral edema. SKIN: warm, dry, well-perfused, no jaundice, no rash, no telangiectasias or petechia. PSYCH: calm, cooperative, no evidence of psychosis or agitation Course Orders Category Date Time Status EKG (ED ONLY) *Do not use* NOW Care 12/28/24 03:04 Completed EKG (ED Only) Stat Exams 12/28/24 03:04 Ordered Vital Signs Vital signs: Vital Signs Temperature 97.1 F 12/28/24 03:04 Pulse Rate 53 L 12/28/24 03:04 Respiratory Rate 18 12/28/24 03:04 Blood Pressure 208/100 H 12/28/24 03:04 Pulse Oximetry (%) 97 12/28/24 03:04 Oxygen Delivery Method Room Air 12/28/24 03:04 Procedures -ED EKG Interpretation #1: EKG Impression: Normal QRS Additional EKG comment: EKG, according to my interpretation, shows sinus bradycardia with a heart rate of 52 bpm, minimal left ventricular hypertrophy (LVH), and flattened T waves in the inferior leads. There is no ST depression or evidence of STEMI. The QTc is 465 ms. Chest Pain MDM Narrative MDM Narrative:: Scribe Attestation: I, Tevin Escalante, am scribing for and in the presence of Dr. Armenta. Provider Notation: Although this document has been carefully reviewed, there may still be some phonetic and other typographical errors. These errors are purely grammatical due to imperfections in the software program and should not be construed in any way to compromise the substance of the patient's medical care during this visit. Patient data External records reviewed:: [facility] previous records and EMS form Clinical information provided by:: patient and EMS Social determinants that could affect healthcare access:: none Patient has the following chronic illnesses:: see PMH How is presenting disease/condition affected by chronic disease/condition?: uneffected by Evaluation data The following diagnostics were reviewed and interpreted by me:: lab results, radiology exam(s) and EKG tracing(s) Lab and/or radiology exams considered but not ordered:: na Medications / Prescriptions Medications or Prescriptions considered but not ordered:: na Medication administrations:: as above, if any Discharge Plan Prescriptions/Referrals Prescriptions/Med Rec: No Action diphenhydramine HCl 50 MG capsule 50 mg PO QHSPRN PRN (Reason: Sleep) Qty: 0 metformin [Glucophage] 500 MG tablet 500 mg PO DAILY Qty: 0 gabapentin 300 MG capsule 300 mg PO BID Qty: 0 hydrocodone-acetaminophen 10-325 mg tablet 1 tab PO PRN PRN (Reason: Pain) aspirin 81 mg Tablet 81 mg PO QDAY loratadine 10 mg Tablet 10 mg PO QDAY PRN (Reason: Allergies) atorvastatin 80 mg tablet 80 mg PO HS 30 Days Qty: 30 1RF metoprolol succinate 50 mg tablet extended release 24 hr 50 mg PO BID 30 Days Qty: 60 1RF nifedipine 30 mg Tablet Extended Release 24hr 30 mg PO QDAY 30 Days Qty: 30 1RF losartan 100 mg tablet 100 mg PO QDAY 30 Days Qty: 30 1RF Patient/Caregiver Discharge Instructions Print Language: Bruneian
--- NOTE | 2024-12-28 03:48 | XR_ITS ---
Examination: AP chest single view Technique one AP portable upright chest single view Exam date and time: January 03, 2025 0307 hrs. Comparison September 08, 2024 Indications: Syncope chest pain today Findings: Mild enlargement left ventricle No pneumonia or pulmonary edema Moderate osteopenia Impression: No pneumonia or pulmonary edema
[2024-12-28] MEDS: hydrALAZINE INJ 20 MG/ML VIAL 10 MG IV ×2 (04:08→05:29)
--- NOTE | 2024-12-28 04:21 | PD.EDRME ---
Rapid Medical Screening Exam RME Arrival date/time: 12/28/24 01:56 Chief Complaint: Chest Pain Vital signs: Vital Signs Temperature 97.1 F 12/28/24 03:04 Pulse Rate 53 L 12/28/24 03:04 Respiratory Rate 18 12/28/24 03:04 Blood Pressure 208/100 H 12/28/24 03:04 Pulse Oximetry (%) 97 12/28/24 03:04 Oxygen Delivery Method Room Air 12/28/24 03:04 RME Narrative: 74-year-old female was brought in by EMS for evaluation of chest pain. The patient reportedly sustained a fall and subsequently called for assistance. MD Attestation MD Attestation Scribe Attestation: Tevin Davis am scribing for and in the presence of Dr. Armenta. Provider Notation: Although this document has been carefully reviewed, there may still be some phonetic and other typographical errors. These errors are purely grammatical due to imperfections in the software program and should not be construed in any way to compromise the substance of the patient's medical care during this visit.
--- NOTE | 2024-12-28 04:27 | XR_ITS ---
Examination: CT brain head without contrast. 2-D sagittal coronal reconstructions Date and time of exam:December 28, 2024 0629 hrs. Indications: Syncopal episode today CTDI: vol (mGy):48.6 DLP: (mGycm):964 Technique: Multiple CT axial sections of the brain have been obtained, 5 mm slice thickness. Contrast has not been administered. 2-D sagittal, coronal reconstructions have been obtained Low dose protocols were performed. One or more of the following dose reduction techniques were used; automated exposure control, adjustment of the mA and/or KV according to patient size, use of iterative reconstruction technique. Findings: No significant ventricular enlargement. Intra-axial or extra-axial hemorrhage density is not seen. No mass effect or midline shift Basal cisterns are not remarkable. Fourth ventricle is midline. Cranial vault intact. Impression: Negative for acute hemorrhage, mass effect or midline shift Advise clinical correlation follow-up accordingly
--- NOTE | 2024-12-28 04:28 | XR_ITS ---
Examination: CT cervical spine without contrast 2-D sagittal reconstructions 2-D coronal reconstructions 3-D reconstructions. Exam date and time:December 28, 2024 0619 hrs. Indications: Syncopal episode today, patient fell with injury to the neck, neck pain CTDI:vol (mGy) 48.6 DLP: (mGycm) 964 Technique: Multiple 2 mm axial sections of the cervical spine have been obtained. The coronal and sagittal reconstructions have been obtained. 3-D reconstructions have been obtained. Low dose protocols were performed. One or more of the following dose reduction techniques were used; automated exposure control, adjustment of the mA and/or KV according to patient size, use of iterative reconstruction technique. Findings: Axial sections demonstrate intact base of the skull. C1 exhibit satisfactory relationship to the odontoid. No acute cervical vertebral body fracture seen. Alignment posterior spinous processes satisfactory. Impression: No acute cervical fracture.
[2024-12-28 04:48] LABS: Collection Type, Urine Catheter
[2024-12-28 04:52] LABS: Basophils % (Auto) 1 % (0-2.5); Eosinophils # (Auto) 0.1 Thou/mm3 (0.0-0.5); Eosinophils % (Auto) 2 % (0-10); Hematocrit 35.7 % (36.0-46.0); Hemoglobin 12.2 g/dL (12.0-16.0); Immature Granulocytes % (Auto) 0 % (0-0); Immature Granulocytes Auto 0.02 Thou/mm3 (0.00-0.00); Lymphocytes # (Auto) 1.3 Thou/mm3 (1.0-4.8); Lymphocytes % (Auto) 20 % (10-50); Mean Corpuscular HGB Conc 34.2 g/dl (31.0-37.0); Mean Corpuscular Hemoglobin 28.8 pg (25.0-35.0); Mean Corpuscular Volume 84 fL (80-100); Monocytes # (Auto) 0.6 Thou/mm3 (0.0-0.8); Monocytes % (Auto) 10 % (0-12); Neutrophils # (Auto) 4.3 Thou/mm3 (1.8-7.7); Neutrophils % (Auto) 67 % (37-80); Nucleated Red Blood Cell % 0 /100 WBC (0); Platelet Count 160 Thou/mm3 (140-440); RDW Standard Deviation 40.6 fL (36.4-46.3); Red Blood Count 4.23 Miln/mm3 (4.00-5.20); White Blood Count 6.4 Thou/mm3 (3.6-11.0)
[2024-12-28 05:19] LABS: Alanine Aminotransferase 17 U/L (10-49); Albumin, Serum 4.7 gm/dL (3.4-4.8); Albumin/Globulin Ratio 2.2 (1.2-2.2); Alkaline Phosphatase 84 U/L (46-116); Anion Gap 9 (7-16); Aspartate Amino Transferase 20 U/L (0-34); BUN/Creatinine Ratio 15 Ratio (12-20); Bilirubin,Total 0.4 mg/dL (0.3-1.2); Blood Urea Nitrogen 21 mg/dL (9-23); Calcium 10.6 mg/dL (8.3-10.6); Calcium (Corrected) 10.6 mg/dL (8.5-10.1); Chloride 106 mMol/L (98-107); Creatinine (Component) 1.4 mg/dL (0.6-1.3); Estimated Creatinine Clearance 35.6 mL/min (>60); Globulin 2.1 gm/dL (2.3-3.5); Glucose 129 mg/dL (74-106); Osmolality,Calculated 286 (275-295); Potassium 3.8 mMol/L (3.4-5.1); Sodium 141 mMol/L (136-145); Total Protein 6.8 gm/dL (5.7-8.2); eGFR 39 See Note
[2024-12-28 05:23] LABS: Troponin I 0.107 ng/mL (0.0-0.045)
[2024-12-28 05:30] LABS: Bilirubin,Urine Negative (Negative); Blood,Urine Negative (Negative); Clarity,Urine Turbid (Clear/Hazy); Color,Urine Yellow (Lt Yel-Yel); Glucose, Urine 1+ (Negative); Hyaline Casts,Urine < 1 /hpf (0-1); Ketones,Urine Negative (Negative); Leukocyte Esterase,Urine Positive (Negative); Nitrite,Urine Negative (Negative); Protein,Urine 1+ (Neg - Trace); RBC,Urine 6 /hpf (0-3); Specific Gravity,Urine 1.022 (1.001-1.035); Squamous Epithelial Cell,Urine 3 /hpf (0-5); Urobilinogen,Urine Negative mg/dL (0.0-1.0); WBC,Urine 56 /hpf (0-5)
[2024-12-28 05:31] LABS: Culture Indicated,Urine Yes
[2024-12-28] MEDS: ACETAMINOPHEN 325 MG TABLET 1000 MG PO (06:04)
[2024-12-28] MEDS: cloNIDine HCL 0.1 MG TABLET 0.2 MG PO ×2 (06:06→21:41)
--- NOTE | 2024-12-28 06:49 | PD.EDCHEST ---
ED Chest Pain RME/HPI General Chief Complaint: Chest Pain Stated Complaint: CHEST PAIN Time Seen by Provider: 12/28/24 06:49 Arrival date/time: 12/28/24 01:56 RME / HPI RME / HPI narrative: 12/28/24 01:56 I was told at 0630 hrs. this patient was in the waiting room brought back to room 1 where she fell last night fell backwards and called an ambulance to help her get up. When the EMS got there they the patient was complaining some chest discomfort so they transported her here. She was noted to have high blood pressure and treated with some hydralazine and clonidine prior to my arrival. She was also given Tylenol for headache. Patient reports having a headache for 7 days. Does not know why she is having a headache. She has no complaints of other problems. Patient does complain of feeling chills or feeling cold since being in the room. Initial oral temperature was normal Related Data Home Medications ?Medication ?Instructions ?Recorded ?Confirmed diphenhydramine HCl 50 mg capsule 50 mg PO QHSPRN PRN Sleep ##0 10/17/13 12/28/24 metformin 500 mg tablet 500 mg PO DAILY #0 tabs 10/17/13 12/28/24 (Glucophage) gabapentin 300 mg capsule 300 mg PO BID #0 caps 07/09/14 12/28/24 hydrocodone 10 mg-acetaminophen 1 tab PO BID PRN Pain 08/16/24 12/28/24 325 mg tablet aspirin 81 mg tablet,delayed 81 mg PO QDAY 12/28/24 12/28/24 release clonidine HCl 0.2 mg tablet 0.2 mg PO BID 12/28/24 12/28/24 ketoconazole 2 % topical cream applic topical BID 12/28/24 nifedipine 30 mg tablet,extended 30 mg PO QDAY 12/28/24 12/28/24 release rosuvastatin 10 mg tablet 10 mg PO HS 12/28/24 12/28/24 valsartan 320 mg tablet 320 mg PO QDAY 12/28/24 12/28/24 Previous Rx's ?Medication ?Instructions ?Recorded atorvastatin 80 mg tablet 80 mg PO HS 30 days #30 tabs 10/10/24 losartan 100 mg tablet 100 mg PO QDAY 30 days #30 tabs 10/10/24 metoprolol succinate 50 mg 50 mg PO BID 30 days #60 tabs 10/10/24 tablet,extended release 24 hr cephalexin 500 mg capsule 500 mg PO QID #28 caps 12/28/24 Allergies Allergy/AdvReac Type Severity Reaction Status Date / Time pseudoephedrine AdvReac Severe RAPID Verified 10/08/24 17:43 HEART BEAT Review of Systems Review of Systems Narrative Review of Systems: Review of Systems: Constitutional: DENIES: Fevers,; Eyes: DENIES: Loss of vision, Head/Ear/Nose: DENIES: Loss of hearing. Throat: Denies dysphagia. Cardiovascular: See HPI Dyspnea or syncope. Respiratory: DENIES: Shortness of breath, Gastrointestinal: DENIES: Rectal bleeding or melena. Genitourinary: DENIES: Dysuria (painful or difficult urination),; Musculoskeletal: DENIES: Arthralgia (pain in a joint),; Skin: DENIES: Rash,; Neurological: See HPI DENIES: loss of function or movement,; Psychiatric: DENIES: recent major life stressor, emotional problem, illicit drug use or abuse,; Endocrinology: DENIES: Weight change,; Hematologic/Lymphatic: DENIES: Abnormal bruising. Allergic/Immunologic: DENIES: Urticaria (hives), Past Medical History Past Medical History CARDIAC: Positive Cardiac Disorders and Hypertension ENDOCRINE: Positive Endocrine Disorders and Diabetes Mellitus Type 2 Surgical History SURGICAL: Positive Hysterectomy (Partial) Social History SMOKING STATUS: Former smoker ED Exam Narrative Physical exam: Physical Exam: General: The vital signs were reviewed. Patient has a little dysphonic voice uncertain if this is new or chronic, she follows commands her blood pressure is quite high on the monitor with systolics in the 200 range. The patient is non-toxic, in no apparent distress and appears healthy with a patent airway, no respiratory distress and has no apparent circulatory problems. Head & Scalp: Normocephalic, atraumatic. Face: Appears normal and is without lesions, deformity. Ears: Left external pinna appears normal. Right external pinna appears normal. Eyes: The sclera is anicteric. No obvious photophobia. The Left and Right Orbit/Lid/Conjunctiva appears normal without swelling, discoloration or injection. Nose: The nose is without deformity, discharge or tenderness; Throat: Appears normal. The mucous membranes are pink and moist without exudates, redness or mass seen. The tongue appears normal. Neck: The neck is supple and no apparent mass or adenopathy. Chest: The chest wall is normal in size and symmetry and has no chest wall tenderness or crepitus. The patient displays normal ventilator effort without retractions, accessory muscle use and has adequate air movement bilaterally with no wheezes and no rales. Cardiovascular: Regular rate and rhythm; No murmurs, rubs, or gallops; Gastrointestinal: The abdomen appears normal. No obvious hernias or mass. The abdomen is soft and benign, non-distended, with no pain, no guarding and no rebound tenderness. Bowel sounds are present and normal sounding. No CVA tenderness. Genitourinary: Back/Spine: Normal inspection Extremities/Musculoskeletal/lymphatic: The bilateral upper and lower extremities are warm. There is no evidence of arterial insufficiency. There is no evidence of venous insufficiency/edema. The patient spontaneously moves bilateral upper and lower extremities with no pain and no limitation of movement. There is no apparent, injury or trauma. Skin: The skin is warm, dry and intact. No rashes. No petechia. No purpura. No abnormal bruising. The color is appropriate with no cyanosis. Mental status/Psychiatric: Mental status is basically normal but she has just a little spaciness kind of a blank look at times. The patient has no apparent delusions, visual hallucinations, no apparent audible hallucinations. The patient has no apparent suicidal thoughts/ideation and no apparent homicidal thoughts/ideation. Neurological: The patient is awake, alert, interactive, cordial, cooperative and is oriented to name and situation. The patient follows commands and answers historical question with no impairment. There is no visual disturbance apparent. The pupils are equal and reactive bilaterally with normal eye movements and no diplopia The bilateral upper and lower extremities have normal strength, normal range of motion and normal functioning. There is no dysmetria. She can lift her legs off the bed without any hesitation bilaterally and the commodity management specialist strength is 5/5 bilaterally. The gait, station and balance were not tested due to acuity Course Quality Measures none Orders Category Date Time Status EKG (ED ONLY) *Do not use* NOW Care 12/28/24 03:04 Completed MRI Screening NOW Care 12/28/24 12:38 Active Diet Cardiac Diet 12/28/[address] cervical spine wo con Stat Exams 12/28/24 04:[address] head/brain wo con Stat Exams 12/28/24 04:27 Completed CXRP [XR chest 1V portable] Stat Exams 12/28/24 03:48 Completed EKG (ED Only) Stat Exams 12/28/24 03:04 Ordered MR head/brain wo con Stat Exams 12/28/24 Completed BNP [B-Type Natriuretic Peptide] Stat Lab 12/28/24 07:13 Completed Blood Culture (Lab) Stat Lab 12/28/24 07:08 Received CBC Stat Lab 12/28/24 03:00 Completed CMP [Comprehensive Metabolic Panel] Stat Lab 12/28/24 03:00 Completed Drug Screen,Urine Stat Lab 12/28/24 11:24 Completed Lactate (Lactic Acid) Stat Lab 12/28/24 07:13 Completed Troponin I Stat Lab 12/28/24 03:00 Completed Troponin I Stat Lab 12/28/24 07:13 Completed Urinalysis, C/S if Indicated Stat Lab 12/28/24 03:00 Completed Urine Culture Stat Lab 12/28/24 03:00 Received Venous Blood Gas Stat Lab 12/28/24 07:13 Completed Acetaminophen Tab [Tylenol Tab] Med 12/28/24 05:49 Discontinued 1,000 mg PO X1 ONE Enalaprilat Inj [Vasotec Inj] Med 12/28/24 06:55 Discontinued 1.25 mg IVP X1 ONE Nitroglycerin Oint 2% [Nitro-paste Oint 2%] Med 12/28/24 07:07 Discontinued 2 inch TOP X1 ONE cefTRIAXone [Rocephin] 1,000 mg Med 12/28/24 06:52 Discontinued SODIUM CHLORIDE 0.9% (Popper) [Ns 0.9% (P)] 50 ml IV X1 cloNIDine HCL [Catapres] Med 12/28/24 06:05 Discontinued 0.2 mg PO X1 ONE hydrALAZINE INJ [Apresoline Inj] Med 12/28/24 03:51 Discontinued 10 mg IV X1 ONE hydrALAZINE INJ [Apresoline Inj] Med 12/28/24 05:23 Discontinued 10 mg IV X1 ONE hydrALAZINE INJ [Apresoline Inj] Med 12/28/24 06:55 Discontinued 20 mg IV X1 ONE Vital Signs Vital signs: Vital Signs Temperature 97.1 F 12/28/24 03:04 Pulse Rate 53 L 12/28/24 03:04 Respiratory Rate 18 12/28/24 03:04 Blood Pressure 208/100 H 12/28/24 03:04 Pulse Oximetry (%) 97 12/28/24 03:04 Oxygen Delivery Method Room Air 12/28/24 03:04 Pulse ox is 97% on room air which is adequate. Chest Pain MDM Narrative MDM Narrative:: Patient 74-year-old who had an accidental fall denies any head or neck pain. CT of the head is negative for any acute blood. Blood pressure has been quite high with systolics in the 200s despite 20 of hydralazine and 0.2 of clonidine on my initial evaluation her systolics are 243 on the right and 202 on the left. Regular is more blood pressure medicine to treat her for possible hypertensive emergency as there is an element of spaciness or slight dysphonic voice or speech. She does not appear to have any nystagmus or any dysmetria with arm and leg movements. Chest x-ray reveals normal heart size no infiltrates no effusion. This is interpreted by myself. Head CT read by myself reveals no obvious fracture brain parenchyma is within normal limits there is no obvious blood present CT cervical spine was done completed and no reports back at 0700 hrs. White count 6.4 hemoglobin of 12.2 sodium 141 potassium 3.8 chloride 106 CO2 26 creatinine is 1.4 BUN is 21 bilirubin transaminase are within normal limits troponin is slightly elevated 0.107 and you can note the old ones have been and abnormal for a period of time although the previous original 1 is a normal troponin. Urinalysis reveals 56 white blood cells and 6 red blood cells. So patient has an accidental fall she is having some chest discomfort with a bump troponin which is chronically elevated but the second 1 is ordered. She does not complain of any pain or injury. She does have a dysphonic voice and her blood pressure is high and she is a little spacey make me wonder if she is got hypertensive encephalopathy. We are giving her more blood pressure medicines which were ordered and pending recheck blood pressures. She also has a urinary tract infection was started on some Rocephin. Also the consideration even though her rectal temperature is negative and she is not tachycardic going to go ahead and get a lactic acid and a blood culture. Because of hypertensive emergency and spaciness Make this a critical care patient @1215 hrs. patient is alert awake her blood pressure was down to 121 out to 156. She is feeling better. Her sisters in the room and states she ran out of her medicine several days ago. That her primary care nurse practitioner evidently could not refill her medicines. Evidently patient is now taking the medicine she was prescribed when she left the hospital which is what she ran out of 2 days ago. Patient is hungry she is ambulatory her vital signs are much improved. Her drug screen came back positive for opiates only otherwise negative. Second troponin is essentially the same slightly elevated and appears to be a chronically low troponin. And note her creatinine slightly bumped to 1.4 from the baseline about 1-1.1 Note the patient was feeling better she got up and walked without any difficulty and she is eating food and not choking but her sister says she is having problems with the right hand fumbling and I went in the room to she appears to have some apraxia of her right hand that she is trying to use the fork to get her salad. So we will cancel her discharge I will get an MRI of her brain. 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 Patient obviously has some apraxia clinically present. I called Dr. Aroldo mauricio at approximately 1635 hrs. and our neurologist to discuss this further she is going to review the MRI and call me back. Should be noted the patient symptoms are probably 3 days old she is never been a tPA candidate. She is able to walk with any difficulty she is swallowing eating food okay. Her blood pressure still remains controlled at 135 systolic at this time. At [address] Meza has not called back for her consult on the MRI. Dr. Meza did call back at 1745 hrs. and thinks the patient should be admitted for observation . Hospitalist was called and they will admit. Patient data External records reviewed:: [facility] previous records (I reviewed admission from 10/09-10/10/2024) and EMS form Clinical information provided by:: patient and EMS Social determinants that could affect healthcare access:: none Patient has the following chronic illnesses:: hypertension, diabetes How is presenting disease/condition affected by chronic disease/condition?: exacerbated by Evaluation data The following diagnostics were reviewed and interpreted by me:: lab results and radiology exam(s) Lab and/or radiology exams considered but not ordered:: none Interpretation Summary: Ordering Physician: Heidy Armenta MD Date of Service: 12/28/24 Procedure(s): XR chest 1V portable Accession Number(s): [id number] cc: Thaddeus Pepe MD; Heidy Armenta MD; Yolande Ashton PA-C~ Examination: AP chest single view Technique one AP portable upright chest single view Exam date and time: January 03, 2025 0307 hrs. Comparison September 08, 2024 Indications: Syncope chest pain today Findings: Mild enlargement left ventricle No pneumonia or pulmonary edema Moderate osteopenia Impression: No pneumonia or pulmonary edema Dictated By: Thaddeus Pepe MD Signed By: <Electronically signed by Thaddeus Pepe MD in OV> 12/28/24 0857 rdering Physician: Heidy Armenta MD Date of Service: 12/28/24 Procedure(s): CT head/brain wo con Accession Number(s): [id number] cc: Thaddeus Pepe MD; Heidy Armenta MD; Yolande Ashton PA-C~ Examination: CT brain head without contrast. 2-D sagittal coronal reconstructions Date and time of exam:December 28, 2024 0629 hrs. Indications: Syncopal episode today CTDI: vol (mGy):48.6 DLP: (mGycm):964 Technique: Multiple CT axial sections of the brain have been obtained, 5 mm slice thickness. Contrast has not been administered. 2-D sagittal, coronal reconstructions have been obtained Low dose protocols were performed. One or more of the following dose reduction techniques were used; automated exposure control, adjustment of the mA and/or KV according to patient size, use of iterative reconstruction technique. Findings: No significant ventricular enlargement. Intra-axial or extra-axial hemorrhage density is not seen. No mass effect or midline shift Basal cisterns are not remarkable. Fourth ventricle is midline. Cranial vault intact. Impression: Negative for acute hemorrhage, mass effect or midline shift Advise clinical correlation follow-up accordingly Dictated By: Thaddeus Pepe MD Signed By: <Electronically signed by Thaddeus Pepe MD in OV> 12/28/24 0734 Ordering Physician: Heidy Armenta MD Date of Service: 12/28/24 Procedure(s): CT cervical spine wo con Accession Number(s): [id number] cc: Thaddeus Pepe MD; Heidy Armenta MD; Yolande Ashton PA-C~ Examination: CT cervical spine without contrast 2-D sagittal reconstructions 2-D coronal reconstructions 3-D reconstructions. Exam date and time:December 28, 2024 0619 hrs. Indications: Syncopal episode today, patient fell with injury to the neck, neck pain CTDI:vol (mGy) 48.6 DLP: (mGycm) 964 Technique: Multiple 2 mm axial sections of the cervical spine have been obtained. The coronal and sagittal reconstructions have been obtained. 3-D reconstructions have been obtained. Low dose protocols were performed. One or more of the following dose reduction techniques were used; automated exposure control, adjustment of the mA and/or KV according to patient size, use of iterative reconstruction technique. Findings: Axial sections demonstrate intact base of the skull. C1 exhibit satisfactory relationship to the odontoid. No acute cervical vertebral body fracture seen. Alignment posterior spinous processes satisfactory. Impression: No acute cervical fracture. Dictated By: Thaddeus Pepe MD Signed By: <Electronically signed by Thaddeus Pepe MD in OV> 12/28/24 0736 Medications / Prescriptions Medications or Prescriptions considered but not ordered:: none Medication administrations:: Medication Administration History Discontinued Medications Acetaminophen (Acetaminophen 325 Mg Tablet) 1,000 mg PO X1 ONE Stop: 12/28/24 05:50 Last Admin: 12/28/24 06:04 Dose: 1,000 mg Documented By: CB Clonidine (Clonidine Hcl 0.1 Mg Tablet) 0.2 mg PO X1 ONE Stop: 12/28/24 06:06 Last Admin: 12/28/24 06:06 Dose: 0.2 mg Documented By: EE Enalaprilat (Enalaprilat Inj 1.25 Mg/Ml Vial) 1.25 mg IVP X1 ONE Stop: 12/28/24 06:56 Last Admin: 12/28/24 07:13 Dose: 1.25 mg Documented By: EE Hydralazine HCl (Hydralazine Inj 20 Mg/Ml Vial) 10 mg IV X1 ONE Stop: 12/28/24 03:52 Last Admin: 12/28/24 04:08 Dose: 10 mg Documented By: ANDREI Hydralazine HCl (Hydralazine Inj 20 Mg/Ml Vial) 10 mg IV X1 ONE Stop: 12/28/24 05:24 Last Admin: 12/28/24 05:29 Dose: 10 mg Documented By: FRANKLIN Hydralazine HCl (Hydralazine Inj 20 Mg/Ml Vial) 20 mg IV X1 ONE Stop: 12/28/24 06:56 Last Admin: 12/28/24 07:14 Dose: 20 mg Documented By: ANDREI Ceftriaxone Sodium 1,000 mg/ (Sodium Chloride) 50 mls @ 100 mls/hr IV X1 ONE Stop: 12/28/24 07:21 Last Infusion: 12/28/24 11:27 Dose: Infused Documented By: Admin: 12/28/24 09:18 Dose: 100 mls/hr Documented By: LORIN Nitroglycerin (Nitroglycerin Oint 2% 1 Inch Packet) 2 inch TOP X1 ONE Stop: 12/28/24 07:08 Last Admin: 12/28/24 09:22 Dose: Not Given Documented By: LORIN Non-Admin Reason: Change of Condition as noted above Consultations Consultation(s) initiated? (list below): Yes Diagnosis Chest Pain Differential Diagnosis: fracture of rib, pneumothorax, stable angina, st elevation myocardial infarction, costochondritis, chest pain, biliary colic and other (hypertensive emergency, hypertensive urgency) Most likely diagnosis given after review of the tests above:: hypertensive encephalopathy chest pain elevated troponin hypertensive emergency uti Admission Indicated Admission indicated?: not indicated Admission Request Was there a request for admission?: No Disposition Plan Disposition Plan: Discharge Discharge Attestation Discharge Attestation: The patient and all family members were given an opportunity to ask questions and understood the discharge instructions. Discharge instructions specifically effects, indications for sooner follow up or return to the emergency department, and the expected course of current diagnosis. Patient condition: Stable Critical Care Time Critical Care Time Critical Care Time: Yes Total Critical Care Time (min.): 45 Attestation: The high probability of sudden, clinically significant deterioration in the patient's condition required the highest level of my preparedness to intervene urgently. The services I provided to this patient were to treat and/or prevent clinically significant deterioration. Services included the following: chart data review, reviewing nursing notes and/or old charts, documentation time, production support consultant collaboration regarding findings and treatment options, medication orders and management, direct patient care, vital sign assessments and ordering, interpreting and reviewing diagnostic studies and lab tests. Aggregate critical care time includes only time during which I was engaged in work directly related to the patient's care, as described above, whether at bedside or elsewhere in the Emergency Department. It did not include time spent performing other reported procedures or the services of residents, students, nurses or physician assistants. Discharge Plan Plan Patient Disposition: Admit Acute Care w/in Hospital Disposition Comment: Hospitalist to admit Dr Meza to consult Prescriptions/Referrals Prescriptions/Med Rec: New cephalexin 500 mg capsule 500 mg PO QID Qty: 28 0RF No Action diphenhydramine HCl 50 MG capsule 50 mg PO QHSPRN PRN (Reason: Sleep) Qty: 0 metformin [Glucophage] 500 MG tablet 500 mg PO DAILY Qty: 0 gabapentin 300 MG capsule 300 mg PO BID Qty: 0 hydrocodone-acetaminophen 10-325 mg tablet 1 tab PO BID PRN (Reason: Pain) atorvastatin 80 mg tablet 80 mg PO HS 30 Days Qty: 30 1RF metoprolol succinate 50 mg tablet extended release 24 hr 50 mg PO BID 30 Days Qty: 60 1RF losartan 100 mg tablet 100 mg PO QDAY 30 Days Qty: 30 1RF ketoconazole 2 % cream TOPICAL BID Patient Comments: APPLY TOPICALLY TO THE AFFECTED AREA TWICE DAILY FOR 6 WEEKS rosuvastatin 10 mg tablet 10 mg PO HS Patient Comments: TAKE 1 TABLET BY MOUTH EVERY NIGHT FOR CHOLESTEROL clonidine HCl 0.2 mg tablet 0.2 mg PO BID Patient Comments: TAKE 1 TABLET BY MOUTH TWICE DAILY FOR BLOOD PRESSURE nifedipine 30 mg tablet extended release 30 mg PO QDAY Patient Comments: TAKE 1 TABLET BY MOUTH DAILY FOR BLOOD PRESSURE aspirin 81 mg tablet,delayed release (DR/EC) 81 mg PO QDAY Patient Comments: TAKE 1 TABLET BY MOUTH BY MOUTH ONCE A DAY valsartan 320 mg tablet 320 mg PO QDAY Patient Comments: TAKE 1 TABLET BY MOUTH EVERY DAY FOR BLOOD PRESSURE Referrals: Yolande Ashton PA-C [Primary Care Provider] - In 1 week Problem List Clinical Impression: Chest pain, Elevated troponin, Hypertensive emergency, Headache, Urinary tract infection, Apraxia Patient/Caregiver Discharge Instructions Additional Instructions: Your blood pressure was critically high today and it came down to a normal range after we gave multiple IV medications. It is important that you keep your medicines filled your doctor refills the to avoid running out. I called [facility] pharmacy and called in refills for the medications you were on when you left the hospital. These include a prescription for nifedipine 30 mg extended release daily metoprolol 50 mg daily and losartan 100 mg daily which were the medicines you were prescribed when he left the hospital last time. You must see your doctor within the next 2 weeks to recheck your blood pressure and to refill and/or continue your medications. . Make sure they evaluate all your other medications you are also on also. You can take regular Tylenol for pain. You also appear to have a slight urinary tract infection and they will be an antibiotic prescribed also. Also have a little urinary tract infection there is an antibiotic ordered so please follow-up with your regular doctor in 1 to 2 days to recheck on the urine culture. Print Language: Burundian Stand Alone Forms: Lizabeth Award Info., Patient Portal Info Letter
--- NOTE | 2024-12-28 06:56 | PC.NURSE ---
MD AWARE OF PT'S BP AND HR . AWAITING NEW ORDERS.
[2024-12-28] MEDS: ENALAPRILAT INJ 1.25 MG/ML VIAL IVP (07:13)
[2024-12-28] MEDS: hydrALAZINE INJ 20 MG/ML VIAL IV ×2 (07:14→18:25)
[2024-12-28 07:41] LABS: Base Excess, Venous 3 (-3-3); O2 Saturation, Venous 66 % (96-97); PCO2, Venous 41 mmHg (36-56); PO2, Venous 33 mmHg (15-58); pH, Venous 7.44 (7.33-7.66)
[2024-12-28 07:42] LABS: Lactate (Lactic Acid) 1.5 mMol/L (0.4-2.0)
[2024-12-28 08:14] LABS: Troponin I 0.103 ng/mL (0.0-0.045)
[2024-12-28] MEDS: cefTRIAXone 1,000 MG in SODIUM CHLORIDE 0.9% (Popper) 50 ML 100 MG IV (09:18)
[2024-12-28 09:31] LABS: B-Type Natriuretic Peptide 118 pg/mL (0-100)
[2024-12-28 11:58] LABS: Amphetamine/Methamp Scrn,U Negative (Negative); Barbiturate Screen,Urine Negative (Negative); Benzodiazepines Screen,Urine Negative (Negative); Benzoylecgonine Screen, Ur Negative (Negative); Fentanyl Screen,Urine Negative (Negative); Opiate Screen,Urine Positive (Negative); THC Screen,Urine Negative (Negative)
--- NOTE | 2024-12-28 12:20 | PC.NURSE ---
DAUGHTER AT BEDSIDE AND DOCTOR HASKINS AT BEDSIDE TO GIVE RESULTS TO BOTH PT AND DAUGHTER.
--- NOTE | 2024-12-28 12:21 | PC.NURSE ---
MEAL TRAY PROVIDED AND PT UP FOR WALK TO BATHROOM. PT TOLERATED WELL WITHIN NORMAL RANGE.
--- NOTE | 2024-12-28 12:31 | PC.NURSE ---
PT SITTING UP IN BED EATING LUNCH WITH DAUGHTER AT BEDSIDE.
--- NOTE | 2024-12-28 13:00 | PC.NURSE ---
doctor abby wants pt to stay in hospital and get MRI. Pt and daughter noticed that her rt hand is shaky, uncoordinated while eating, and rt leg is tingling and symptoms started about 3 days ago. unknown true onset of symptoms. cryptographer and strengths are strong bilaterally, no facial droop, pupils are even bilateral and reactive. pt is having balance problems and has been gen. weak and dizzy for the past week. daughter stated that she has not wanted to get out of bed and has been sleeping all day.
--- NOTE | 2024-12-28 13:59 | PC.NURSE ---
pt went MRI via wheelchair
--- NOTE | 2024-12-28 15:15 | PC.NURSE ---
Pt heart rate decreased to 40-38bpm while sleeping doctor abby [place]. pt has no symptoms.
--- NOTE | 2024-12-28 18:22 | PC.NURSE ---
pt up in bed eating dinner at this time. pt bp noticed to be elevated so doctor abby aware bp 203/72 hr 65bpm.
--- NOTE | 2024-12-28 18:28 | PC.NURSE ---
admit doctor at bedside.
--- NOTE | 2024-12-28 18:46 | ESHP_ITS ---
Documentation for date of: 12/28/24 HPI History of Present Illness Chief complaint: Ground level fall at home today History of present illness: Patient is a 74-year-old female with past medical history of poorly-controlled hypertension, non-insulin dependent type 2 diabetes, and CAD who presented to the ED on 12/28/2024 after a ground-level fall at home when she was trying to take care of the cat litter. Patient reports falling backwards without loss of consciousness. Patient lives at home with her daughter. Daughter called EMS. Patient remembers taking aspirin and gabapentin this morning. Patient apparently stopped taking any blood pressure medications 2 months ago as she had run out. She saw her PCP Yolande Ashton on 11/30/2024 and was told they will not refill her blood pressure medications because they wanted the specialist to manage them. Patient states that she lost the papers with the information to see the form drafter that she was supposed to follow up with. Patient endorses headache for the last 7 days, left-sided. Per EMS report, patient had apparently been complaining of chest pain at the time she was found and received nitroglycerin 0.4 mg and aspirin 162 mg. Patient reports intermittent episodes of left-sided chest pain when she gets emotional, denies chest pain currently. Patient denies any changes to speech or sudden focal weakness, disequilibrium. ED Course: -Initial vitals were BP 208/100, HR 53, RR 18, Temp 97.1, saturating 97% on room air -Labs significant for creatinine 1.4 (baseline 1.1), corrected calcium 10.6, troponin 0.107->0.103, BNP 118 -UA showed positive leukocyte esterase, 56 WBC, but no bacteria -Head CT and cervical spine CT were negative -Due to observation of ataxia, ER physician ordered MRI to evaluate for stroke -Brain MRI without contrast showed punctate foci of mildly restricted diffusion in the bilateral right greater than left semicentrum ovale. 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 -Neurology Dr. Meza was consulted from ED and recommended admission for observation -In the ED, patient was given hydralazine 10 mg IV x2, acetaminophen 1000 mg PO x1, clonidine 0.2 mg PO x1, enalaprilat 1.25 mg IV x1, hydralazine 20 mg IV x1, and ceftriaxone 1 g IV x1 -Patient was admitted for hypertensive emergency and subacute CVA workup Review of Systems Review of systems otherwise negative except what is mentioned above. Past Medical History Past Medical History Comments PMH COMMENT: Past Medical History: Poorly-controlled hypertension, non-insulin dependent type 2 diabetes, and CAD Family History: Denies known cardiac history Surgical History: Hysterectomy Social History: Remote history of smoking quit 25 years ago, denies current alcohol use, denies recreational drug use Current Medications: Pending med rec Allergies: Pseudoephedrine - hives Exam Vital Signs Temp Pulse Resp BP Pulse Ox O2 Del Method 98.5 F 66 17 203/72 H 95 Room Air 12/28/24 17:12/28/24 18:25 12/28/24 17:12/28/24 18:12/28/24 17:12/28/24 17:09 Narrative Exam Physical Exam General: Awake and in no acute distress. Conversational and non-toxic appearing. HEENT: Normocephalic, atraumatic, mucous membranes moist. Heart: Regular rate and rhythm, no murmurs. Lungs: Clear to auscultation with no wheezing or crackles. Abdomen: Soft, nondistended, nontender, positive bowel sounds. ?No guarding or rebound tenderness. Neurologic: Alert and oriented x3, no gross neurological deficit, and patient able to move all 4 extremities. Extremities: No edema. Skin: No rash or ecchymoses. Results: Labs 12/29/24 05:20 12/29/24 05:20 Labs: Short CBC 12/28/24 Range/Units 03:00 WBC 6.4 (3.6-11.0) Thou/mm3 Hgb 12.2 (12.0-16.0) g/dL Hct 35.7 L (36.0-46.0) % Plt Count 160 (140-440) Thou/mm3 BMP 12/28/24 03:00 Sodium 141 Potassium 3.8 Chloride 106 Carbon Dioxide 26.0 BUN 21 Creatinine 1.4 H Glucose 129 H Calcium 10.6 Cardiac Enzymes 12/28/24 12/28/24 Range/Units 03:00 07:13 Troponin I 0.107 H* 0.103 H* (0.0-0.045) ng/mL Liver Function 12/28/24 Range/Units 03:00 Total Bilirubin 0.4 (0.3-1.2) mg/dL AST 20 (0-34) U/L ALT 17 (10-49) U/L Alkaline Phosphatase 84 (46-116) U/L Albumin 4.7 (3.4-4.8) gm/dL Urine 12/28/24 Range/Units 03:00 Urine Color Yellow (Lt Yel-Yel) Urine Clarity Turbid A (Clear/Hazy) Urine pH 6.0 (5.0-7.0) Ur Specific [place] 1.022 (1.001-1.035) Urine Protein 1+ A (Neg - Trace) Urine Glucose (UA) 1+ A (Negative) ABG Interpretation ABG results: 12/28/24 07:13 VBG pH 7.44 VBG pCO2 41 VBG pO2 33 VBG Base Excess 3 Quality Measures Quality Measures none Advance care planning discussed with:: patient Medications Home Medications and Allergies Home Medications ?Medication ?Instructions ?Recorded ?Confirmed ?Type diphenhydramine HCl 50 mg capsule 50 mg PO QHSPRN PRN Sleep ##0 10/17/13 12/28/24 History metformin 500 mg tablet 500 mg PO DAILY #0 tabs 09/2112/28/24 History (Glucophage) gabapentin 300 mg capsule 300 mg PO BID #0 caps 12/28/24 History hydrocodone 10 mg-acetaminophen 1 tab PO BID PRN Pain 08/16/24 12/28/24 History 325 mg tablet aspirin 81 mg tablet,delayed 81 mg PO QDAY 12/28/24 History release clonidine HCl 0.2 mg tablet 0.2 mg PO BID 12/28/2408/14 History ketoconazole 2 % topical cream applic topical BID 12/19 History nifedipine 30 mg tablet,extended 30 mg PO QDAY 5 12/28/24 History release rosuvastatin 10 mg tablet 10 mg PO HS 12/28/24 5 History valsartan 320 mg tablet 320 mg PO QDAY 12/28/2412/19 History Allergies Allergy/AdvReac Type Severity Reaction Status Date / Time pseudoephedrine AdvReac Severe RAPID Verified 10/08/24 17:43 HEART BEAT Visit Medications Acetaminophen (Acetaminophen 325 Mg Tablet) 650 mg PO Q6H PRN PRN Reason: Fever >101.5 Stop: 01/27/25 18:29 Acetaminophen (Acetaminophen 325 Mg Tablet) 650 mg PO Q6H PRN PRN Reason: PAIN SCALE 1-3 (mild Stop: 01/27/25 18:29 Aspirin (Aspirin Ec 81 Mg Tabec) 81 mg PO QDAY [facility] Stop: 01/27/25 18:44 Atorvastatin Calcium (Atorvastatin Calcium 20 Mg Tablet) 80 mg PO HS [facility] Stop: 01/27/25 20:59 Metoprolol Succinate (Metoprolol Succinate Xl 25 Mg Tabcr) 50 mg PO BID [facility] Stop: 01/27/25 20:59 Nifedipine (Nifedipine Xl 30 Mg Tabcr) 30 mg PO QDAY [facility] Stop: 01/27/25 18:44 Ondansetron HCl (Ondansetron Inj 2 Mg/Ml Inj 2 Ml) 4 mg IV Q6H PRN; Protocol PRN Reason: NAUSEA OR VOMITING Stop: 01/27/25 18:29 Discontinued Medications Acetaminophen (Acetaminophen 325 Mg Tablet) 1,000 mg PO X1 ONE Stop: 12/28/24 05:50 Last Admin: 12/28/24 06:04 Dose: 1,000 mg Clonidine (Clonidine Hcl 0.1 Mg Tablet) 0.2 mg PO X1 ONE Stop: 12/28/24 06:06 Last Admin: 12/28/24 06:06 Dose: 0.2 mg Enalaprilat (Enalaprilat Inj 1.25 Mg/Ml Vial) 1.25 mg IVP X1 ONE Stop: 12/28/24 06:56 Last Admin: 12/28/24 07:13 Dose: 1.25 mg Hydralazine HCl (Hydralazine Inj 20 Mg/Ml Vial) 10 mg IV X1 ONE Stop: 12/28/24 03:52 Last Admin: 12/28/24 04:08 Dose: 10 mg Hydralazine HCl (Hydralazine Inj 20 Mg/Ml Vial) 10 mg IV X1 ONE Stop: 12/28/24 05:24 Last Admin: 12/28/24 05:29 Dose: 10 mg Hydralazine HCl (Hydralazine Inj 20 Mg/Ml Vial) 20 mg IV X1 ONE Stop: 12/28/24 06:56 Last Admin: 12/28/24 07:14 Dose: 20 mg Hydralazine HCl (Hydralazine Inj 20 Mg/Ml Vial) 20 mg IV X1 ONE Stop: 12/28/24 18:21 Last Admin: 12/28/24 18:25 Dose: 20 mg Ceftriaxone Sodium 1,000 mg/ (Sodium Chloride) 50 mls @ 100 mls/hr IV X1 ONE Stop: 12/28/24 07:21 Last Infusion: 12/28/24 11:27 Dose: Infused Nitroglycerin (Nitroglycerin Oint 2% 1 Inch Packet) 2 inch TOP X1 ONE Stop: 12/28/24 07:08 Last Admin: 12/28/24 09:22 Dose: Not Given Assessment & Plan Plan 74-year-old female with past medical history of poorly-controlled hypertension, non-insulin dependent type 2 diabetes, and CAD who presented to the ED on 12/28/2024 after a ground-level fall at home, subsequently found to have hypertensive emergency with end-organ damage possible subacute ischemic stroke and EUGENIA. #Hypertensive emergency #History of poorly controlled hypertension Patient presented with severely elevated BPs SBP >200 climbing as high as 254/93 while in the ED. She had complaint of headache for the last 7 days. Patient had a ground-level fall at home. CT head and cervical spine negative. MRI head non-con done in ED showed possible areas of acute on chronic ischemia - may suggest possible stroke secondary to hypertensive emergency. Timeline of symptoms unclear but patient on admission evaluation does not have any focal neurologic deficits. Teleneuro and stroke alert was not called due to likely subacute nature of the findings. -Resume home BP medications -Nifedipine 30 mg qday -Metoprolol succinate 50 mg qday - OK to hold if HR <55 -Clonidine 0.2 mg BID -Held home losartan due to EUGENIA #?Subacute ischemic stroke Patient presented with fall at home, fell backwards onto the floor. CT head was negative. The ED physician had noticed ataxia of the upper extremities upon observing the patient on re-evaluation so thus ordered an MRI. On my examination on admission the patient has no neurologic deficits and no ataxia, passed [id number] and [id number] tests well. Brain MRI without contrast showed punctate foci of mildly restricted diffusion in the bilateral right greater than left semicentrum ovale. 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 Differential includes small foci of acute on chronic ischemia, atypical demyelinating process, and infectious etiologies. -Neurologist Dr. Meza was consulted and will follow, appreciate recommendations -Admitted to Telemetry -Head of bed elevation >30 degrees -Maintain euglycemia and normal temperature -Since this is likely subacute no need for permissive hypertension -Q4H neuro checks -Nurse swallow screen -Speech evaluation -PT evaluation -Echocardiography with bubble study ordered -Hemoglobin A1c -Lipid panel -Vitamin B12 level -TSH level -Continue home aspirin 81 mg daily -Continue home atorvastatin 80 mg HS daily #Ground-level fall CT head, cervical spine were negative. On examination the patient has no head trauma. There are no focal neurological deficits. -PT evaluation -Orthostatic vitals -Continuous telemetry and cardiac monitoring #History of CAD Patient underwent left cardiac cath with Dr. Pacheco on her last admission in 09/2024. It showed moderate CAD with 40-50% stenosis in the mid LAD, proximal LCx, mid LCx as well as 60-70% stenosis in the small distal LCx. EF normal at 70%. Recommended aggresive medical management at that time, no stents placed. Patient failed to follow up as she lost the information. -Consulted Cardiology Dr. Pacheco -Continue home aspirin 81 mg daily -Continue home atorvastatin 80 mg HS daily -Continue metoprolol succinate 50 mg qday #EUGENIA Patient creatinine on admission was 1.4. Baseline appears to be around 1.1. Likely secondary to hypertensive emergency. -Aggressive control of BP as above -Avoid nephrotoxins -Monitor renal panel -Hold any JONATHAN/ARB/diuretics #UTI UA showed positive leukocyte esterase, 56 WBC, but no bacteria. Patient did not endorse any urinary symptoms at this time. However given the fall and uncertain etiology including possible metabolic encephalopathy secondary to UTI will empirically treat until culture result. -Started ceftriaxone 1 g qday -Urine culture pending -Blood cultures pending #Elevated troponin, downtrended #NSTEMI type 2 On ED evaluation troponin was 0.107 which downtrended to 0.103. Like demand secondary to hypertension. -No need to trend further troponin #History of non-insulin dependent type 2 diabetes Patient reports she takes metformin for diabetes. As patient's last A1c was 5.8 in 07/2024 and glucose on chem panel have ranged 110-120s did not feel the need to initiate insulin this admission. -Holding home oral medication -Will monitor AM glucose levels on chem panel DVT prophylaxis: Heparin 5,000 U subQ GI prophylaxis: None Diet: Cardiac Wynn: None Lines: Peripheral IV Antibiotics: None CODE STATUS: DNR - Patient was asked code status on admission, and stated that she would not want chest compressions or intubation should it become necessary. Patient was oriented x4 and conversational at time of discussion. Reason for hospitalization: Hypertensive emergency and possible subacute CVA workup Patient plan of care was discussed with the attending physician, Dr. Montoya. Lali Roblero, PGY-2 Attending Provider Attestation/Addendum I have examined the patient, reviewed labs and imaging findings, discussed the case with the resident(s), and reviewed entered orders. I agree with the plan of care as outlined in this note, with these additional summaries/recommendations: Patient is a 74 year old female with a medical history of DMII, Primary Hypertension, dyslipidemia, and CAD who presents to [facility] on 12/28/24 after a ground level fall at home. In the emergency department patient was observed to have apraxia and was unable to eat her food when asked which has been present for approx.. 3 days per family. MRI was obtained which revealed possible subacute stroke and significantly elevated blood pressure and thus hospitalist team was consulted for continuation of care. #Hypertensive emergency: developed apraxia in ED. Unclear if symptoms are related to elevated BP or possible subacute stroke. Given that symptoms have been present for approx.. 3 days we will proceed with hypertensive treatment. We will avoid antihypertensives that can affect heart rate given sinus bradycardia. Goal is to reduce BP by 25% #Stroke-like symptoms: #Ground Level Fall Possibly related to subacute CVA vs hypertensive emergency Brain MRI without contrast showed punctate foci of mildly restricted diffusion in the bilateral right greater than left semicentrum ovale. 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 Differential includes small foci of acute on chronic ischemia, atypical demyelinating process, and infectious etiologies. In-house neurology consulted, recommendations appreciated. Order Echo and physical therapy consultation. Start aspirin and high intensity statin. Order A1C & Lipid panel. Stroke alert was not called given symptoms present for 3 days. At this time symptoms have resolved although continue to monitor. #Sinus Bradycardia No lightheadedness or dizziness at this time. Cardiology consulted, recommendations appreciated. Continue to monitor on telemetry for now. #Urinary Tract Infection Per urinalysis. Urine and blood cxs taken. Start IV rocephin and follow-up culture results. #Troponemia #Coronary artery disease Troponin peaked at 0.107. EKG whithout any acute ST changes indicative of acute ischemia. Most likely secondary to demand ischemia/EUGENIA. Continue home aspirin and statin. Cardiology following. #Diabetes mellitus Type II Plan: Start insulin sliding scale. Order A1C. Dr. Jan MD
[2024-12-28] MEDS: ASPIRIN EC 81 MG TABEC PO (19:26)
[2024-12-28] MEDS: NIFEdipine XL 30 MG TABCR PO (19:26)
[2024-12-28] MEDS: METOPROLOL SUCCINATE XL 25 MG TABCR 50 MG PO (21:40)
[2024-12-28] MEDS: HEPARIN SOD INJ 5000 UNIT/ML VIAL SC (21:40)
[2024-12-28] MEDS: ATORVASTATIN CALCIUM 20 MG TABLET 80 MG PO (21:41)
[2024-12-28] MEDS: ACETAMINOPHEN 325 MG TABLET 650 MG PO (22:33)
--- NOTE | 2024-12-28 23:09 | PC.NURSE ---
Resident aware of pt HR of 43 resident to come to bedside.
--- NOTE | 2024-12-28 23:18 | PC.NURSE ---
New parameters for metoprolol per resident see MAR.
--- NOTE | 2024-12-28 23:41 | PD.VCONSULT1 ---
Telemedicine visit statement This visit was conducted with the use of interactive audio and video telecommunications system that permits real time communication between the patient and the provider. Patient's verbal consent for virtual visit was obtained on 12/28/24 at 2341. Meds Home Medications and Allergies Home Medications ?Medication ?Instructions ?Recorded ?Confirmed ?Type diphenhydramine HCl 50 mg capsule 50 mg PO QHSPRN PRN Sleep ##0 10/17/13 12/28/24 History metformin 500 mg tablet 500 mg PO DAILY #0 tabs 10/17/13 12/28/24 History (Glucophage) gabapentin 300 mg capsule 300 mg PO BID #0 caps 07/09/14 12/28/24 History hydrocodone 10 mg-acetaminophen 1 tab PO BID PRN Pain 08/16/24 12/28/24 History 325 mg tablet aspirin 81 mg tablet,delayed 81 mg PO QDAY 12/28/24 12/28/24 History release clonidine HCl 0.2 mg tablet 0.2 mg PO BID 12/28/24 12/28/24 History ketoconazole 2 % topical cream applic topical BID 12/28/24 History nifedipine 30 mg tablet,extended 30 mg PO QDAY 12/28/24 12/28/24 History release rosuvastatin 10 mg tablet 10 mg PO HS 12/28/24 12/28/24 History valsartan 320 mg tablet 320 mg PO QDAY 12/28/24 12/28/24 History Allergies Allergy/AdvReac Type Severity Reaction Status Date / Time pseudoephedrine AdvReac Severe RAPID Verified 10/08/24 17:43 HEART BEAT Virtual exam Vital Signs Temp Pulse Resp BP Pulse Ox O2 Del Method 98.4 F 58 L 14 172/78 H 97 Room Air 12/28/24 22:20 12/28/24 22:20 12/28/24 22:20 12/28/24 22:20 12/28/24 22:20 12/28/24 22:20 Results Labs 12/28/24 03:00 12/28/24 03:00 Labs: Short CBC 12/28/24 Range/Units 03:00 WBC 6.4 (3.6-11.0) Thou/mm3 Hgb 12.2 (12.0-16.0) g/dL Hct 35.7 L (36.0-46.0) % Plt Count 160 (140-440) Thou/mm3 BMP 12/28/24 03:00 Sodium 141 Potassium 3.8 Chloride 106 Carbon Dioxide 26.0 BUN 21 Creatinine 1.4 H Glucose 129 H Calcium 10.6 Cardiac Enzymes 12/28/24 12/28/24 Range/Units 03:00 07:13 Troponin I 0.107 H* 0.103 H* (0.0-0.045) ng/mL Liver Function 12/28/24 Range/Units 03:00 Total Bilirubin 0.4 (0.3-1.2) mg/dL AST 20 (0-34) U/L ALT 17 (10-49) U/L Alkaline Phosphatase 84 (46-116) U/L Albumin 4.7 (3.4-4.8) gm/dL Urine 12/28/24 Range/Units 03:00 Urine Color Yellow (Lt Yel-Yel) Urine Clarity Turbid A (Clear/Hazy) Urine pH 6.0 (5.0-7.0) Ur Specific [place] 1.022 (1.001-1.035) Urine Protein 1+ A (Neg - Trace) Urine Glucose (UA) 1+ A (Negative) ABG Interpretation ABG results: 12/28/24 07:13 VBG pH 7.44 VBG pCO2 41 VBG pO2 33 VBG Base Excess 3
[2024-12-29] VITALS (10 sets, daily range): BP systolic 136–166; BP diastolic 56–97; PULSE 34–55; RESP 12–18; TEMP 36.1–37.2; O2SAT 94–97; BMI 35.2
[2024-12-29 06:06] LABS: Basophils # (Auto) 0.1 Thou/mm3 (0.0-0.2); Basophils % (Auto) 1 % (0-2.5); Eosinophils # (Auto) 0.1 Thou/mm3 (0.0-0.5); Eosinophils % (Auto) 2 % (0-10); Hematocrit 34.7 % (36.0-46.0); Hemoglobin 11.6 g/dL (12.0-16.0); Immature Granulocytes % (Auto) 0 % (0-0); Immature Granulocytes Auto 0.01 Thou/mm3 (0.00-0.00); Lymphocytes # (Auto) 1.7 Thou/mm3 (1.0-4.8); Lymphocytes % (Auto) 29 % (10-50); Mean Corpuscular HGB Conc 33.4 g/dl (31.0-37.0); Mean Corpuscular Hemoglobin 28.9 pg (25.0-35.0); Mean Corpuscular Volume 87 fL (80-100); Monocytes # (Auto) 0.6 Thou/mm3 (0.0-0.8); Monocytes % (Auto) 10 % (0-12); Neutrophils # (Auto) 3.6 Thou/mm3 (1.8-7.7); Neutrophils % (Auto) 58 % (37-80); Nucleated Red Blood Cell % 0 /100 WBC (0); Platelet Count 159 Thou/mm3 (140-440); RDW Standard Deviation 41.2 fL (36.4-46.3); Red Blood Count 4.01 Miln/mm3 (4.00-5.20); White Blood Count 6.1 Thou/mm3 (3.6-11.0)
[2024-12-29 06:27] LABS: INR 1.1 (0.9-1.3); Prothrombin Time 11.5 Seconds (9.0-12.2)
[2024-12-29 06:47] LABS: Alanine Aminotransferase 12 U/L (10-49); Albumin, Serum 4.2 gm/dL (3.4-4.8); Albumin/Globulin Ratio 2.2 (1.2-2.2); Alkaline Phosphatase 77 U/L (46-116); Anion Gap 6 (7-16); Aspartate Amino Transferase 17 U/L (0-34); BUN/Creatinine Ratio 20 Ratio (12-20); Bilirubin,Total 0.6 mg/dL (0.3-1.2); Blood Urea Nitrogen 26 mg/dL (9-23); Calcium 10.6 mg/dL (8.3-10.6); Calcium (Corrected) 10.6 mg/dL (8.5-10.1); Carbon Dioxide 27.2 mMol/L (20.0-31.0); Chloride 107 mMol/L (98-107); Cholesterol 89 mg/dL (132-200); Creatinine (Component) 1.3 mg/dL (0.6-1.3); Estimated Creatinine Clearance 39.9 mL/min (>60); Globulin 1.9 gm/dL (2.3-3.5); Glucose 110 mg/dL (74-106); HDL Cholesterol 30 mg/dL (40-60); LDL Cholesterol,Calculated 32 mg/dL (0-130); Osmolality,Calculated 285 (275-295); Phosphorous 3.3 mg/dL (2.4-5.1); Potassium 3.5 mMol/L (3.4-5.1); Sodium 140 mMol/L (136-145); Thyroid Stimulating Hormone 0.74 uIU/mL (0.55-4.78); Total Protein 6.1 gm/dL (5.7-8.2); Triglycerides 135 mg/dL (30-150); eGFR 43 See Note
[2024-12-29] MEDS: cefTRIAXone 1,000 MG in SODIUM CHLORIDE 0.9% (Popper) 50 ML 100 MG IV (09:14)
[2024-12-29] MEDS: ASPIRIN EC 81 MG TABEC PO (09:15)
[2024-12-29] MEDS: NIFEdipine XL 30 MG TABCR PO (09:15)
[2024-12-29] MEDS: cloNIDine HCL 0.1 MG TABLET 0.2 MG PO ×2 (09:15→22:00)
[2024-12-29] MEDS: ACETAMINOPHEN 325 MG TABLET 650 MG PO (09:16)
[2024-12-29] MEDS: HEPARIN SOD INJ 5000 UNIT/ML VIAL SC (09:16)
--- NOTE | 2024-12-29 09:26 | ESCONSULT_ITS ---
HPI Data of Consult Patient: known to practice within the last 3 years Consult date: 12/29/24 Requesting Physician: Fausto May MD Admitting Provider: Gurmeet Montoya MD Attending Provider: Mich Pacheco MD Primary Care Provider: Yolande Ashton PA-C Consult Narrative Reason for consult: Hypertensive emergency History of present illness: Ms. Chan is a 74-year-old female with past medical history of hypertension, fyb-knjtxmg-vzprjegeh diabetes mellitus type 2, hyperlipidemia and coronary artery disease who was BIBA to [facility] emergency department on 12/28/2024 with a chief complaint of status post ground-level fall. Patient reported ground-level fall, falling backwards without loss of consciousness, denied hitting head when she was trying to take care of the cat litter. Patient lives at home with her daughter and daughter called EMS, per EMS report patient apparently had been complaining of chest pain at the time she was found and was given nitroglycerin 0.4 mg and aspirin 162 mg via EMS enroute to the hospital. Patient reported that she stopped taking any blood pressure medications about 2 months ago as she had run out, saw her primary care provider down waiting on 11/30/2024 and was told that they will not refill her blood pressure medications because she needs to see a specialist to manage hypertension. Patient reported that she lost the papers with the information to see ecological economist that she was supposed to follow-up with. Patient complains of headache for the last 7 to 10 days, generalized, is currently complaining of headache as well, frontal. Patient also endorses intermittent episodes of left-sided chest pain reports that the pain is exacerbated with strong emotions, denies any chest pain on exertion and denies any chest pain currently. Patient denies any shortness of breath, palpitations, dizziness, PND, nausea, vomiting and abdominal pain. ED Course: ED Vitals: On presentation in the emergency department blood pressure 208/100, heart rate 53, respiratory rate 18, temp 97.1, O2 sat 97 on room air ED Labs: Emergency department labs significant for RBC 4.23, hemoglobin 12.2, WBC 6.4, platelet 160 sodium 141 potassium 3.8 chloride 106 venous CO2 26 BUN 21 creatinine 1.4 GFR 39 glucose 129 corrected calcium 10.6 AST ALT unremarkable troponin 0.107 ED Imaging:CT head negative for acute hemorrhage, mass effect or midline shift, CT cervical spine negative for acute cervical fracture chest x-ray negative for pneumonia/pulmonary edema MRI of brain showed punctate foci of mildly restricted diffusion in the bilateral right greater than left semicentrum ovale. 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 EKG in emergency department showed sinus bradycardia, heart rate 52 ED Treatment: Neurologist Dr. Meza was consulted in emergency department recommended admission for observation; patient was given hydralazine 10 mg IV x 2, Tylenol 1000 mg p.o. x 1 clonidine 0.2 mg p.o. x 1 enalaprilat 1.25 mg IV x 1 hydralazine 20 mg IV x 1 and ceftriaxone 1 g IV x 1 in emergency department cc:: cc: Fausto May MD Review of Systems Review of Systems Narrative Review of Systems: ROS: -CONSTITUTIONAL: Denies weight loss, fever and chills. -HEENT: Denies changes in vision and hearing. -RESPIRATORY: Denies SOB and cough. -CV: Denies palpitations and Chest Pain. Positive for intermittent chest pain. -GI: Denies abdominal pain, nausea, vomiting,constipation and diarrhea. -: Denies dysuria and urinary frequency. -MSK: Denies myalgia and joint pain. -SKIN: Denies rash and pruritus. -NEUROLOGICAL: Positive for headache and fall -PSYCHIATRIC: Denies recent changes in mood. Denies anxiety and depression. Past Medical History Past Medical History Comments PMH COMMENT: PMH: Positive for hypertension, jek-iunicoq-phqyqrocs diabetes mellitus type 2, hyperlipidemia and coronary artery disease PSHx: Hysterectomy Allergies: Pseudoephedrine-rapid heartbeat/hives Social history: -Smoking:Patient reports smoking for 1 year, quit 25 years ago -Alcohol Use: Denies -Illicit Drug Use: Denies -Occupation: Retired -ADLs: Independent ADL, lives with daughter at home Family History: Denies family history of heart disease Exam Vital Signs Temp Pulse Resp BP Pulse Ox O2 Del Method 98.0 F 47 L 13 162/67 H 96 Room Air 12/29/24 08:00 12/29/24 09:15 12/29/24 08:00 12/29/24 09:15 12/29/24 08:00 12/29/24 08:00 Narrative Exam Physical Exam General: Awake and in no acute distress. Conversational and non-toxic appearing. HEENT: Normocephalic, atraumatic, mucous membranes moist. Heart: Regular rate and rhythm, no murmurs. Lungs: Clear to auscultation with no wheezing or crackles. Abdomen: Soft, nondistended, nontender, positive bowel sounds. ?No guarding or rebound tenderness. Neurologic: Alert and oriented x3, no gross neurological deficit, and patient able to move all 4 extremities. Extremities: No edema. Skin: No rash or ecchymoses. Results Labs 12/29/24 05:20 12/29/24 05:20 Labs: Short CBC 12/29/24 Range/Units 05:20 WBC 6.1 (3.6-11.0) Thou/mm3 Hgb 11.6 L (12.0-16.0) g/dL Hct 34.7 L (36.0-46.0) % Plt Count 159 (140-440) Thou/mm3 BMP 12/29/24 05:20 Sodium 140 Potassium 3.5 Chloride 107 Carbon Dioxide 27.2 BUN 26 H Creatinine 1.3 Glucose 110 H Calcium 10.6 Liver Function 12/29/24 Range/Units 05:20 Total Bilirubin 0.6 (0.3-1.2) mg/dL AST 17 (0-34) U/L ALT 12 (10-49) U/L Alkaline Phosphatase 77 (46-116) U/L Albumin 4.2 D (3.4-4.8) gm/dL ABG Interpretation ABG results: 12/28/24 07:13 VBG pH 7.44 VBG pCO2 41 VBG pO2 33 VBG Base Excess 3 Quality Measures Quality Measures none Advance care planning discussed with:: patient Medications Home Medications and Allergies Home Medications ?Medication ?Instructions ?Recorded ?Confirmed ?Type diphenhydramine HCl 50 mg capsule 50 mg PO QHSPRN PRN Sleep ##0 10/17/13 12/28/24 History metformin 500 mg tablet 500 mg PO DAILY #0 tabs 09/2112/28/24 History (Glucophage) gabapentin 300 mg capsule 300 mg PO BID #0 caps 12/28/24 History hydrocodone 10 mg-acetaminophen 1 tab PO BID PRN Pain 08/16/24 12/28/24 History 325 mg tablet aspirin 81 mg tablet,delayed 81 mg PO QDAY 12/28/24 History release clonidine HCl 0.2 mg tablet 0.2 mg PO BID 12/28/2408/14 History ketoconazole 2 % topical cream applic topical BID 12/19 History nifedipine 30 mg tablet,extended 30 mg PO QDAY 5 12/28/24 History release rosuvastatin 10 mg tablet 10 mg PO HS 12/28/24 5 History valsartan 320 mg tablet 320 mg PO QDAY 12/28/2412/19 History Allergies Allergy/AdvReac Type Severity Reaction Status Date / Time pseudoephedrine AdvReac Severe RAPID Verified 10/08/24 17:43 HEART BEAT Visit Medications Acetaminophen (Acetaminophen 325 Mg Tablet) 650 mg PO Q6H PRN PRN Reason: Fever >101.5 Stop: 01/27/25 18:29 Acetaminophen (Acetaminophen 325 Mg Tablet) 650 mg PO Q6H PRN PRN Reason: PAIN SCALE 1-3 (mild Stop: 01/27/25 18:29 Last Admin: 12/29/24 09:16 Dose: 650 mg Aspirin (Aspirin Ec 81 Mg Tabec) 81 mg PO QDAY [facility] Stop: 01/27/25 18:44 Last Admin: 12/29/24 09:15 Dose: 81 mg Atorvastatin Calcium (Atorvastatin Calcium 20 Mg Tablet) 80 mg PO HS [facility] Stop: 01/27/25 20:59 Last Admin: 12/28/24 21:41 Dose: 80 mg Clonidine (Clonidine Hcl 0.1 Mg Tablet) 0.2 mg PO BID [facility] Stop: 01/27/25 20:59 Last Admin: 12/29/24 09:15 Dose: 0.2 mg Heparin Sodium (Porcine) (Heparin Sod Inj 5000 Unit/Ml Vial) 5,000 unit SC Q12HR [facility]I Stop: 01/11/25 20:59 Last Admin: 12/29/24 09:16 Dose: 5,000 unit Ceftriaxone Sodium 1,000 mg/ (Sodium Chloride) 50 mls @ 100 mls/hr IV QDAY [facility] Stop: 01/05/25 08:59 Last Admin: 12/29/24 09:14 Dose: 100 mls/hr Metoprolol Succinate (Metoprolol Succinate Xl 25 Mg Tabcr) 50 mg PO BID [facility] Stop: 01/28/25 08:59 Last Admin: 12/29/24 09:11 Dose: Not Given Nifedipine (Nifedipine Xl 30 Mg Tabcr) 30 mg PO QDAY [facility] Stop: 01/27/25 18:44 Last Admin: 12/29/24 09:15 Dose: 30 mg Ondansetron HCl (Ondansetron Inj 2 Mg/Ml Inj 2 Ml) 4 mg IV Q6H PRN; Protocol PRN Reason: NAUSEA OR VOMITING Stop: 01/27/25 18:29 Discontinued Medications Acetaminophen (Acetaminophen 325 Mg Tablet) 1,000 mg PO X1 ONE Stop: 12/28/24 05:50 Last Admin: 12/28/24 06:04 Dose: 1,000 mg Clonidine (Clonidine Hcl 0.1 Mg Tablet) 0.2 mg PO X1 ONE Stop: 12/28/24 06:06 Last Admin: 12/28/24 06:06 Dose: 0.2 mg Enalaprilat (Enalaprilat Inj 1.25 Mg/Ml Vial) 1.25 mg IVP X1 ONE Stop: 12/28/24 06:56 Last Admin: 12/28/24 07:13 Dose: 1.25 mg Hydralazine HCl (Hydralazine Inj 20 Mg/Ml Vial) 10 mg IV X1 ONE Stop: 12/28/24 03:52 Last Admin: 12/28/24 04:08 Dose: 10 mg Hydralazine HCl (Hydralazine Inj 20 Mg/Ml Vial) 10 mg IV X1 ONE Stop: 12/28/24 05:24 Last Admin: 12/28/24 05:29 Dose: 10 mg Hydralazine HCl (Hydralazine Inj 20 Mg/Ml Vial) 20 mg IV X1 ONE Stop: 12/28/24 06:56 Last Admin: 12/28/24 07:14 Dose: 20 mg Hydralazine HCl (Hydralazine Inj 20 Mg/Ml Vial) 20 mg IV X1 ONE Stop: 12/28/24 18:21 Last Admin: 12/28/24 18:25 Dose: 20 mg Ceftriaxone Sodium 1,000 mg/ (Sodium Chloride) 50 mls @ 100 mls/hr IV X1 ONE Stop: 12/28/24 07:21 Last Infusion: 12/28/24 11:27 Dose: Infused Metoprolol Succinate (Metoprolol Succinate Xl 25 Mg Tabcr) 50 mg PO BID [facility] Stop: 01/27/25 20:59 Last Admin: 12/28/24 21:40 Dose: 50 mg Metoprolol Succinate (Metoprolol Succinate Xl 25 Mg Tabcr) 50 mg PO BID [facility] Stop: 01/27/25 20:59 Nitroglycerin (Nitroglycerin Oint 2% 1 Inch Packet) 2 inch TOP X1 ONE Stop: 12/28/24 07:08 Last Admin: 12/28/24 09:22 Dose: Not Given Assessment & Plan Plan Assessment and Plan: Summary: Ms. Chan is a 74-year-old female with past medical history of hypertension, [id number] diabetes mellitus type 2, hyperlipidemia and coronary artery disease who was BIBA to [facility] emergency department on 12/28/2024 with a chief complaint of status post ground-level fall. When patient was initially found by EMS, complained of some chest discomfort, which resolved in the emergency department, MRI of head done in the emergency department showed concern of chronic/subacute infarcts, neurology was consulted recommended admission. Patient did have elevated troponin on presentation, EKG showed sinus bradycardia. # ACS-NSTEMI type II versus type I # Chest pain, resolved # Elevated troponin # Moderate coronary artery disease Patient on evaluation by EMS initially complained of chest discomfort was given nitro 0.4 mg and aspirin 162 mg by EMS, patient's chest pain/discomfort resolved in the emergency department. Patient's troponin was noted to be elevated at 0.107-> 0.103. EKG shows sinus bradycardia, no acute ST or T changes. Patient on assessment reports chest pain resolved. TSH 0.74, triglyceride 135, cholesterol 89, LDL 32, HDL 30, hemoglobin A1c 07/2024 5.8, BNP 118 chest x-ray showed no vascular congestion/pulmonary hypertension [facility] Cath 10/09/2024: [facility] completed showed moderate CAD with 40 to 50% stenosis in the mid LAD, proximal LCx, mid LCx as well as's 60 to 70% stenosis in the small distal LCx. RCA, left main, rest of the arteries with only minimal luminal irregularities. LVEF normal at greater than 70%, LVEDP 22 mmHg and there was no significant transvalvular aortic gradient ECHO 10/09/2024: Normal LV size and function. Mild LVH. Stage I diastolic dsyfunction. Estimated EF 60-65% Normal RV size and function. Mild AV sclerosis without stenosis. Trace MR, TR. Recommendations: -Patient's chest pain has resolved, acute chest pain in setting of hypertensive emergency, elevated troponin downtrended. Patient does have moderate coronary artery disease as evidenced by left heart cath done in September 2024. Patient needs aggressive management for coronary artery disease we will continue aspirin 81 mg daily and atorvastatin 80 mg at bedtime. Recommended to hold beta- blockers in setting of sinus bradycardia for now. -Keep potassium more than 4, magnesium more than 2 -Will follow the results of echocardiogram -Monitor for chest pain #Hypertensive emergency #Poorly controlled hypertension Patient presented initially with high blood pressure of 208/100 mmHg, patient reported discontinuing blood pressure medication about 2 months ago, was not taking any antihypertensive medication as was supposed to follow-up with specialist. Patient complains of headache for the last 10 days, currently also has generalized headache. Patient was given multiple doses of hydralazine, enalaprilat and clonidine in the emergency department. Patient's losartan was held in setting of EUGENIA, was resumed on nifedipine metoprolol succinate clonidine 0.2 mg p.o. twice daily. Blood pressure improved today. Recommendations: -Hold metoprolol succinate and nifedipine in setting of sinus bradycardia. -Start on hydralazine 50 mg 3 times daily -Resume home dose of losartan, patient's EUGENIA has improved -Continue 0.2 mg clonidine twice daily for now, will taper off to optimize regimen outpatient #Sinus bradycardia EKG in the emergency department showed sinus bradycardia, heart rate 52., Previous EKGs reviewed, no evidence of sinus bradycardia previously; patient denies any dizziness currently, did have a ground-level fall, fall likely mechanical. Plan: -Continue telemonitoring, monitor for blocks/pauses -Avoid beta blockers, calcium channel blockers, Aricept and other medications that can exacerbate bradycardia -Patient will need outpatient follow-up with Holter monitoring. #Ground-level fall Reported ground-level mechanical fall, denies passing out, denies hitting head. CT cervical spine CT head negative Orthostatic lying 178/65, sitting 172/87, standing 160/103, orthostatic vitals negative MRI shows punctate foci of mildly restricted diffusion in the bilateral right greater than left semicentrum ovale. 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 Patient following up with physical therapy #Hyperlipidemia Triglyceride 135, cholesterol 89, LDL 32, HDL 30 -Continue atorvastatin 80 mg at bedtime #Diabetes mellitus type 2, [id number] Last hemoglobin A1c 5.8, patient prediabetic likely blood glucose per blood draw and range of 110 to 129. #EUGENIA on CKD stage IIIa Baseline BUN 16, creatinine 1.0, GFR 59 On presentation BUN 21, creatinine 1.4, GFR 39 EUGENIA in setting of hypertensive emergency versus prerenal #?Subacute stroke Patient presented with fall at home, fell backwards onto the floor. CT head was negative. The ED physician had noticed ataxia of the upper extremities upon observing the patient on re-evaluation so thus ordered an MRI. On my examination on admission the patient has no neurologic deficits and no ataxia, passed [id number] and [id number] tests well. Brain MRI without contrast showed punctate foci of mildly restricted diffusion in the bilateral right greater than left semicentrum ovale. 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 Differential includes small foci of acute on chronic ischemia, atypical demyelinating process, and infectious etiologies. -Neurologist Dr. Meza was consulted and will follow, appreciate recommendations #Urinary tract infection UA showed positive leukocyte esterase, 56 WBC, but no bacteria. Patient did not endorse any urinary symptoms at this time. However given the fall and uncertain etiology including possible metabolic encephalopathy secondary to UTI will empirically treat until culture result. -On IV antibiotics, pending cultures Thank you for the consult and allowing to participate in the care of the patient. Cardiology will continue to follow. Case discussed with Attending Dr. Pacheco. Dorys Dacosta PGY1 Disclaimer: This note was dictated by speech recognition. Minor errors in podopediatrician may be present due to voice recognition software. Attending Provider Attestation/Addendum I have personally seen and examined the patient separately on the above date of service and discussed the plan of care with the resident. I reviewed the resident Dr. Dorys Dacosta consultation progress note and agree with the resident findings and plan in the note above and have also edited the documentation to reflect my findings and plan. Patient known to me from last admission in September 2024 when performed left heart cardiac catheter which showed moderate CAD with 40 to 50% stenosis in the mid LAD, proximal LCx as well as mid LCx and 60 to 70% stenosis small distal LCx. Patient was recommended to follow-up with in the office but she never showed up. She did visit her PCP and received some medications for the same based on the discharge summary but she ran out of medications few days ago. She came to the emergency department today after fall and there is a question of possible syncope and also patient did complain of some severe headache along with some chest discomfort we did interrogate this. 2.. A 73-year-old male with a past medical history of moderate CAD involving the LAD, LCx, residual hypertension, nonsustained 2 diabetes mellitus, hyperlipidemia, morbid obesity presented to the emergency department after he evaluation of a fall with unclear etiology. Cardiology was consulted for bradycardia as well as mildly elevated troponins and some chest discomfort. Assessment and plan: 1. Bradycardia-asymptomatic and appears to be sinus bradycardia on telemetry. 2. Mildly elevated troponins 3. Atypical chest pain 4. Moderate CAD by cardiac cath in September 2024 5. History of fall and unclear etiology will need to rule out syncope in the setting of some chest discomfort as well as bradycardia 6. Hypertensive emergency. 7. Chronic pain Bradycardia-patient heart rate in the high 40s and low 50s but he is mostly asymptomatic but overall feels tired. Reviewed the telemetry closely and patient does not lesion sinus bradycardia no evidence of any heart blocks or AV blocks. Recommend to continue telemetry for now. Patient was on beta-elizabeth as well as nifedipine XL. Recommend to stop both immediately. If the patient blood pressure is high recommend to do start ARB's for the patient. Keep greater than 4 and magnesium greater than 2.0. No need of any urgent pacemaker at the present point of time. Continue to monitor telemetry for now. Mildly elevated troponins mostly secondary. Plan demand mismatch with NSTEMI type II. Patient did have catheterization performed by in September 2024 and there was only moderate CAD as noted above. Recommend to continue aggressive medical treatment including aspirin statin and as well as beta-blockers if BP permissible. Also her chest pain appears to be atypical as noted above. Unclear etiology. Will need to rule out syncope given the presentation and bradycardia. If telemetry does show any events then patient will need long-term Holter monitoring as outpatient if telemetry is normal. Patient strongly recommended to come back and follow-up wit kalpesh smith in the office in the next 7 to 10 days and also have further monitoring. Management of rest of the medical conditions as per primary team and other consultants. Thank you for the consult and allowing me to participate in the care of the patient. Cardiology will continue to follow. Mich Pacheco M.D. Interventional Cardiology
[2024-12-29] MEDS: LOSARTAN POTASSIUM 25 MG TABLET 100 MG PO (12:12)
--- NOTE | 2024-12-29 13:47 | PCS.ST ---
Swallow evaluation completed. No dysphagia. No acute speech/language deficits. Diet: regular consistency/thin liquids. No further skilled ST services warranted, evaluation only.
--- NOTE | 2024-12-29 14:24 | ESPR_ITS ---
<Statement entered by Lali Roblero MD - 12/30/24 07:35> Patient was seen and examined by me personally. I have directly supervised and reviewed documentation by the team resident and agree with its findings with any exceptions or additional findings as below. Plan of care was discussed with the attending, Dr. May. Lali Roblero, PGY-2 Documentation for date of: 12/29/24 Subjective Subjective Interval history: 12/29/2024: No acute overnight events to report. Patient seen and examined remains at baseline status with no concerning symptoms noted such as chest pain, shortness of breath, abdominal pain or any new headaches/dizziness. Patient's blood pressure is under much better control at this time. Cardiology consulted regarding asymptomatic bradycardia with the patient's heart rate fluctuating from the 30s to the 40s but blood pressure remaining constantly normal and even elevated. Recommendations are to discontinue medications causing bradycardia and to continue to monitor for any acute changes. Neurology is pending recommendations regarding the brain MRI findings. Expecting discharge within the next 24 to 48 hours if the patient's status remains at baseline. Exam Vital Signs Temp Pulse Resp BP Pulse Ox O2 Del Method 98.0 F 47 L 13 160/76 H 96 Room Air 12/29/24 08:00 12/29/24 12:12 12/29/24 08:00 12/29/24 12:12 12/29/24 08:00 12/29/24 08:00 Narrative Exam Physical Exam General: Awake and in no acute distress. Conversational and non-toxic appearing. HEENT: Normocephalic, atraumatic, mucous membranes moist. Heart: Regular rate and rhythm, no murmurs. Lungs: Clear to auscultation with no wheezing or crackles. Abdomen: Soft, nondistended, nontender, positive bowel sounds. ?No guarding or rebound tenderness. Neurologic: Alert and oriented x3, no gross neurological deficit, and patient able to move all 4 extremities. Extremities: No edema. Skin: No rash or ecchymoses. Objective Labs 12/30/24 05:11 12/30/24 05:11 Labs: Laboratory Results - last 24 hr 12/29/24 05:20 WBC 6.1 RBC 4.01 Hgb 11.6 L Hct 34.7 L MCV 87 MCH 28.9 MCHC 33.4 RDW Std Deviation 41.2 Plt Count 159 Neut % (Auto) 58 Lymph % (Auto) 29 [place] % (Auto) 10 Eos % (Auto) 2 Baso % (Auto) 1 Neut # (Auto) 3.6 Lymph # (Auto) 1.7 [place] # (Auto) 0.6 Eos # (Auto) 0.1 Baso # (Auto) 0.1 Immature Gran # (Auto) 0.01 H Absolute Nucleated RBC 0.00 Immature Gran % 0 Nucleated RBC % 0 PT 11.5 INR 1.1 Sodium 140 Potassium 3.5 Chloride 107 Carbon Dioxide 27.2 Anion Gap 6 L BUN 26 H Creatinine 1.3 Estim Creat Clear Calc 39.9 L eGFR 43 L BUN/Creatinine Ratio 20 Glucose 110 H Calculated Osmolality 285 Calcium 10.6 Corrected Calcium 10.6 H Phosphorus 3.3 Magnesium 2.0 Total Bilirubin 0.6 AST 17 ALT 12 Alkaline Phosphatase 77 Total Protein 6.1 Albumin 4.2 D Globulin 1.9 L Albumin/Globulin Ratio 2.2 Triglycerides 135 Cholesterol 89 L LDL Cholesterol, Calc 32 HDL Cholesterol 30 L Cholesterol/HDL Ratio 3.0 L TSH 0.74 ABG Interpretation ABG results: 12/28/24 07:13 VBG pH 7.44 VBG pCO2 41 VBG pO2 33 VBG Base Excess 3 Quality Measures Quality Measures none Advance care planning discussed with:: patient and child Assessment & Plan Assessment Current Active Medications: Generic Name Dose Route Start Last Admin Trade Name Freq PRN Reason Stop Dose Admin Acetaminophen 650 mg 12/28/24 18:30 Acetaminophen 325 Mg Tablet PO 01/27/25 18:29 Q6H PRN Fever >101.5 Acetaminophen 650 mg 12/28/24 18:30 12/29/24 09:16 Acetaminophen 325 Mg Tablet PO 01/27/25 18:29 650 mg Q6H PRN Administration PAIN SCALE 1-3 (mild Amlodipine Besylate 10 mg 12/30/24 09:00 Amlodipine Besylate 5 Mg Tablet PO 01/29/25 08:59 QDAY HARI Aspirin 81 mg 12/28/24 18:45 12/29/24 09:15 Aspirin Ec 81 Mg Tabec PO 01/27/25 18:44 81 mg QDAY HARI Administration Atorvastatin Calcium 80 mg 12/28/24 21:00 12/28/24 21:41 Atorvastatin Calcium 20 Mg Tablet PO 01/27/25 20:59 80 mg HS HARI Administration Clonidine 0.2 mg 03/10/25 21:00 12/29/24 09:15 Clonidine Hcl 0.1 Mg Tablet PO 01/27/25 20:59 0.2 mg BID HARI Administration Heparin Sodium (Porcine) 5,000 unit 12/28/24 21:00 12/29/24 09:16 Heparin Sod Inj 5000 Unit/Ml Vial SC 01/11/25 20:59 5,000 unit Q12HR HARI Administration Ceftriaxone Sodium 1,000 mg/ 50 mls @ 100 mls/hr 12/29/24 09:00 12/29/24 09:14 Sodium Chloride IV 01/05/25 08:59 100 mls/hr QDAY HARI Administration Losartan Potassium 100 mg 12/29/24 11:00 12/29/24 12:12 Losartan Potassium 25 Mg Tablet PO 01/28/25 10:59 100 mg QDAY HARI Administration Ondansetron HCl 4 mg 12/28/24 18:30 Ondansetron Inj 2 Mg/Ml Inj 2 Ml IV 01/27/25 18:29 Q6H PRN NAUSEA OR VOMITING Protocol Plan 74-year-old female with past medical history of poorly-controlled hypertension, non-insulin dependent type 2 diabetes, and CAD who presented to the ED on 12/28/2024 after a ground-level fall at home, subsequently found to have hypertensive emergency with end-organ damage possible subacute ischemic stroke and EUGENIA. #Subacute ischemic stroke? Patient presented with fall at home, fell backwards onto the floor. CT head was negative. The ED physician had noticed ataxia of the upper extremities upon observing the patient on re-evaluation so thus ordered an MRI. On my examination on admission the patient has no neurologic deficits and no ataxia, passed [id number] and [id number] tests well. Brain MRI without contrast showed punctate foci of mildly restricted diffusion in the bilateral right greater than left semicentrum ovale. 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 Differential includes small foci of acute on chronic ischemia, atypical demyelinating process, and infectious etiologies. Echocardiography with bubble study ordered is negative TG 135, cholesterol 89, LDL 32 (well within target), HDL 30, TSH 0.74 Speech evaluation passed Plan: Neurologist Dr. Meza was consulted and will follow, appreciate recommendations Head of bed elevation >30 degrees Maintain euglycemia and normal temperature Q4H neuro checks PT evaluation pending Continue home aspirin 81 mg daily Continue home atorvastatin 80 mg HS daily #History of CAD #Bradycardia, Sinus Patient underwent left cardiac cath with Dr. Pacheco on her last admission in 09/2024. It showed moderate CAD with 40-50% stenosis in the mid LAD, proximal LCx, mid LCx as well as 60-70% stenosis in the small distal LCx. EF normal at 70%. Recommended aggresive medical management at that time, no stents placed. Patient failed to follow up as she lost the information. ECHO from 12/29/24 shows: Bubble study negative for any PFO or ASD. Normal LV size and function with an EF of 60 to 65%. Diastolic dysfunction stage I. Normal RV size and function with normal RVSP. Mild TR. Moderate aortic valve sclerosis without any stenosis. Significant noncoronary cusp calcification seen. Mild to moderate MR With trace to mild MR. Patient having sinus bradycardia (HR 30-40s) with preserved BP and asymptomatic Plan: Consulted Cardiology, appreciate recommendations Continue home aspirin 81 mg daily Continue home atorvastatin 80 mg HS daily Discontinued metoprolol succinate 50 mg qday as there is bradycardia #Hypertensive emergency, resolved #History of poorly controlled hypertension Patient presented with severely elevated BPs SBP >200 climbing as high as 254/93 while in the ED. She had complaint of headache for the last 7 days. Patient had a ground-level fall at home. CT head and cervical spine negative. MRI head non-con done in ED showed possible areas of acute on chronic ischemia - may suggest possible stroke secondary to hypertensive emergency. Timeline of symptoms unclear but patient on admission evaluation does not have any focal neurologic deficits. Teleneuro and stroke alert was not called due to likely subacute nature of the findings. Plan: Discontinued home BP medications Discontinued Nifedipine 30 mg qday Discontinued Metoprolol succinate 50 mg qday Continue Clonidine 0.2 mg BID and Losartan 100mg qday #EUGENIA, improving Likely secondary to hypertensive emergency. Patient creatinine on admission was 1.4. Baseline appears to be around 1.1. Cr improving to 1.3 Plan: Aggressive control of BP as above Avoid nephrotoxins Monitor with morning labs #UTI UA showed positive leukocyte esterase, 56 WBC, but no bacteria. Patient did not endorse any urinary symptoms at this time. There is concern for possible metabolic encephalopathy secondary to UTI Blood cultures NG in 24hours Plan: Continue ceftriaxone 1 g qday Urine culture pending #Ground-level fall CT head, cervical spine were negative. On examination the patient has no head trauma. There are no focal neurological deficits on exam Plan: PT evaluation as above Orthostatic vitals Continuous telemetry and cardiac monitoring #Elevated troponin, downtrended #NSTEMI type 2 Likely demand secondary to hypertension. On ED evaluation troponin was 0.107 which downtrended to 0.103 Plan: Will monitor for any acute changes in chest pain #History of non-insulin dependent type 2 diabetes Patient reports she takes metformin for diabetes. As patient's last A1c was 5.8 in 07/2024 and glucose On chem panel have ranged 110-120s Plan: Will resume home oral medication on discharge Hospital management: Lines: Peripheral IV Diet: Cardiac Bowel: Senna GI prophylaxis: None needed DVT prophylaxis: Heparin 5,000 U subQ Dispo: Monitoring bradycardia and blood pressure, neuro recommendations regarding the patient's brain MRI findings Code: DNR Patient seen and assessed with attending Dr. May and senior resident Dr. Annika Blandon, PGY-1 Attending Provider Attestation/Addendum I reviewed labs, imaging, EKG, home medications and prior available records. Face to face evaluation was performed by me. I have personally examined the patient and discussed assessment and plan with the IM team. I reviewed the resident note and agree with the plan with exceptions as below. Ground-level fall Non-STEMI Possible CVA Bradycardia Continue aspirin and atorvastatin MRI showed possible CVA. Follow-up with neurology Started antihypertensive treatment. Monitor BP: Improved Heart rate was in the 40s. Consulted cardiology: Recommended to avoid beta- blockers. Ordered echocardiogram that showed EF of 60 to 65% with mild to moderate valvular disease. Outpatient follow-up with cardiology Troponin peaked Ordered PT
[2024-12-29] MEDS: HYDROcodone/APAP 10/325 TAB PO (16:29)
--- NOTE | 2024-12-29 16:40 | PC.PT ---
PT eval only. Patient is xI and does not required skilled PT intervention at this time. Patient is safe to ambulate to the bathroom and in the halls with no DME and 1 staff assist due to patient has a low HR in the 40s-50s while working with PT.
--- NOTE | 2024-12-29 18:37 | ECHO_ITS ---
Transthoracic Echo Report Ht (in): 63 Wt (lb): 199 Exam Location: Port[facility] Status: Inpatient She[facility] Machine Operator: TANG Page^^^^ Indications: Procedure Performed: BP: 144 / 84 HR: 93 Technical Quality: Fair MEASUREMENTS (Male / Female) Normal Values 2D ECHO LV Diastolic Diameter PLAX 4.8 cm 4.2 - 5.9 / 3.9 - 5.3 cm LV Systolic Diameter PLAX 3.1 cm IVS Diastolic Thickness 1.2 cm 0.6 - 1.0 / 0.6 - 0.9 cm LVPW Diastolic Thickness 0.9 cm 0.6 - 1.0 / 0.6 - 0.9 cm LV Relative Wall Thickness 0.4 LVOT Diameter 1.7 cm Aortic Root Diameter 2.9 cm LA Systolic Diameter LX 3.9 cm 3.0 - 4.0 / 2.7 - 3.8 cm LV Ejection Fraction MOD BP 59.7 % >= 55 % LV Cardiac Index MOD BP 2152.6 cm?/min?m? LV Ejection Fraction MOD 4C 63.7 % LV Cardiac Index MOD 4C 3131.0 cm?/min?m? LV Ejection Fraction 4C AL 63.8 % LV Cardiac Index 4C AL 3286.0 cm?/min?m? LV Ejection Fraction MOD 2C 59.3 % LV Cardiac Index MOD 2C 1515.5 cm?/min?m? LV Ejection Fraction 2C AL 60.8 % LV Cardiac Index 2C AL 1577.0 cm?/min?m? LA Volume Index 30.6 cm?/m? 16 - 28 cm?/m? Ascending Aorta Diameter 2.8 cm DOPPLER AV Peak Velocity 156.0 cm/s AV Peak Gradient 9.7 mmHg AV Mean Gradient 5.0 mmHg AV Velocity Time Integral 36.4 cm LVOT Peak Velocity 120.0 cm/s LVOT Peak Gradient 5.8 mmHg LVOT Velocity Time Integral 35.9 cm LVOT Cardiac Index 3708.3 cm?/min?m? AV Area Cont Eq vti 2.2 cm? AV Area Cont Eq pk 1.7 cm? MV Area PHT 3.1 cm? Mitral E Point Velocity 53.9 cm/s Mitral A Point Velocity 90.4 cm/s Mitral E to A Ratio 0.6 LV E' Lateral Velocity 6.0 cm/s Mitral E to LV E' Lateral Ratio 8.9 LV E' Septal Velocity 6.6 cm/s Mitral E to LV E' Septal Ratio 8.2 TR Peak Velocity 176.3 cm/s TR Peak Gradient 12.4 mmHg PV Peak Velocity 108.0 cm/s PV Peak Gradient 4.7 mmHg RVOT Peak Velocity 59.9 cm/s FINDINGS Left Ventricle The left ventricular wall thickness is mildly increased. There is grade I diastolic dysfunction of the left ventricle (impaired relaxation pattern). The left ventricular ejection fraction is normal, estimated at 60-65%. Right Ventricle The right ventricle is normal in size and systolic function. The estimated right ventricular systolic pressure, 18 mmHg. Left Atrium The left atrium is normal by two-dimensional, color flow and Doppler imaging with no structural abnormalities, no thrombus formation present. Right Atrium The right atrium is normal by two-dimensional imaging, color flow and Doppler imaging with no structural abnormalities, no thrombus formation present. Atrial Septum The interatrial septum is normal to color flow Doppler and agitated saline imaging. Aorta The aorta is normal by two-dimensional, color flow and Doppler interrogation. Mitral Valve Mild mitral regurgitation. Mild mitral annular calcification. Aortic Valve Aortic valve sclerosis. Moderate thickening of the aortic valve leaflets. Diffuse calcification of the aortic valve. Findings consistent with vegetation on the aortic valve. Tricuspid Valve There is mild tricuspid valve regurgitation. Pulmonic Valve Trivial pulmonic valve regurgitation. Vessels The pulmonary artery appears normal. The inferior vena cava pulmonary and hepatic veins appear normal. Pericardium The pericardium is normal by two-dimensional imaging. There is no significant pericardial effusion. CONCLUSIONS Indication: Stroke Bubble study negative for any PFO or ASD. Consider GAYATHRI if high clinical index of suspicion. Normal LV size and function with an EF of 60 to 65%. Diastolic dysfunction stage I. Normal RV size and function with normal RVSP. Mild TR. Moderate aortic valve sclerosis without any stenosis. Significant noncoronary cusp calcification seen. Mild to moderate MR With trace to mild MR. Mich Pacheco (Electronically Signed) Final Date: 29 December 2024 10:44
--- NOTE | 2024-12-29 19:28 | PC.NURSE ---
Notified team at bedside of HR 39 overnight. Lowest HR went was 34, Dr. Granda notified. Pt not complaining of any lightheadedness or dizziness. Radial pulse checked HR 40. HR continued to be in high 30s, Dr. Pimentel notified.
[2024-12-29] MEDS: ATORVASTATIN CALCIUM 20 MG TABLET 80 MG PO (22:00)
--- NOTE | 2024-12-29 23:21 | PD.NEUROPROG ---
Documentation for date of: 12/29/24 Subjective Subjective Interval history: Patient was seen in telemetry today. Complains of headache. She stated that her blood pressure has been chronically high despite being compliant on medication intake Exam - Neurology Vital Signs Temp Pulse Resp BP Pulse Ox O2 Del Method 97.0 F 53 L 15 166/67 H 97 Room Air 12/29/24 20:00 12/29/24 22:00 12/29/24 20:00 12/29/24 22:00 12/29/24 20:00 12/29/24 20:00 Narrative Exam GENERAL APPEARANCE: Well hydrated, well-nourished in no acute distress. HEENT: Normocephalic, atraumatic, extraocular movements intact. Pupils: Equal reacting to light and accommodation NECK: Supple, no JVD or bruits. CARDIOVASULAR: Heart: S1, S2 heard, regular without S3-S4 or murmur no rubs or gallops. LUNGS/CHEST: Clear to auscultation bilaterally. No rails, rhonchi, or wheezing. Normal inspection. ABDOMEN: Soft, nontender, with normal bowel sounds. No pulsatile masses. No rebound, rigidity, or guarding. Normal inspection and palpation. EXTREMITIES: Normal inspection and palpation. No edema, clubbing or cyanosis. SKIN: Warm and dry without rashes. Normal inspection. MUSCULOSKELETAL: No cervical, thoracic, lumbar or midline bony tenderness. Normal inspection. NEURO: Alert, awake and oriented x3. Cranial nerves: II through XII grossly intact. Speech and language: Normal with no dysarthria or dysphasia. Motor system: Tone and bulk: Normal: Strength: 5 out of 5 in all 4 extremities; No pronator drift noted. Deep tendon reflexes: 2+ bilaterally symmetrical. Plantar reflex: Downgoing bilaterally. Sensory system: Intact to all modalities of sensation bilaterally. Coordination: Intact to [id number] and fztr-[id number]-[id number] test bilaterally. No ataxia, no dysmetria, or dysdiadochokinesia noted. No intention tremors noted. Gait: Normal. Toe, heel, tandem walk all are normal. No signs of meningeal irritation noted. PSYCHIATRIC: Normal mood and affect. Objective Labs 12/30/24 05:11 12/30/24 05:11 Labs: Laboratory Results - last 24 hr 12/29/24 05:20 WBC 6.1 RBC 4.01 Hgb 11.6 L Hct 34.7 L MCV 87 MCH 28.9 MCHC 33.4 RDW Std Deviation 41.2 Plt Count 159 Neut % (Auto) 58 Lymph % (Auto) 29 [place] % (Auto) 10 Eos % (Auto) 2 Baso % (Auto) 1 Neut # (Auto) 3.6 Lymph # (Auto) 1.7 [place] # (Auto) 0.6 Eos # (Auto) 0.1 Baso # (Auto) 0.1 Immature Gran # (Auto) 0.01 H Absolute Nucleated RBC 0.00 Immature Gran % 0 Nucleated RBC % 0 PT 11.5 INR 1.1 Sodium 140 Potassium 3.5 Chloride 107 Carbon Dioxide 27.2 Anion Gap 6 L BUN 26 H Creatinine 1.3 Estim Creat Clear Calc 39.9 L eGFR 43 L BUN/Creatinine Ratio 20 Glucose 110 H Calculated Osmolality 285 Calcium 10.6 Corrected Calcium 10.6 H Phosphorus 3.3 Magnesium 2.0 Total Bilirubin 0.6 AST 17 ALT 12 Alkaline Phosphatase 77 Total Protein 6.1 Albumin 4.2 D Globulin 1.9 L Albumin/Globulin Ratio 2.2 Triglycerides 135 Cholesterol 89 L LDL Cholesterol, Calc 32 HDL Cholesterol 30 L Cholesterol/HDL Ratio 3.0 L TSH 0.74 ABG Interpretation ABG results: 12/28/24 07:13 VBG pH 7.44 VBG pCO2 41 VBG pO2 33 VBG Base Excess 3 Assessment & Plan Assessment and plan (1) Headache: Status: Acute Assessment and plan: Cervical spine CT: Ruled out fracture Headache is secondary to uncontrolled hypertension Continue to control the blood pressure with current medications including clonidine nifedipine, metoprolol and losartan. (2) Hypertensive emergency: Status: Acute Assessment and plan: Better controlled now. Reassurance given to the patient regarding the MRI findings: Likely chronic small vessel disease from uncontrolled hypertension. Punctate foci of mildly restricted diffusion in the bilateral right greater than left semicentrum ovale. 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 Differential includes small foci of acute on chronic ischemia, atypical demyelinating process, and infectious etiologies. Consider correlation with contrast-enhanced brain MRI. Echocardiogram: Bubble study negative for any PFO or ASD. Consider GAYATHRI if high clinical index of suspicion. Normal LV size and function with an EF of 60 to 65%. Diastolic dysfunction stage I. Normal RV size and function with normal RVSP. Mild TR. Moderate aortic valve sclerosis without any stenosis. Significant noncoronary cusp calcification seen. Mild to moderate MR With trace to mild MR. Continue with aspirin, blood pressure control and statin.
[2024-12-30] VITALS (11 sets, daily range): BP systolic 136–187; BP diastolic 41–98; PULSE 40–66; RESP 12–18; TEMP 36.1–37.2; O2SAT 90–99; BMI 35.2
[2024-12-30 05:37] LABS: Basophils % (Auto) 1 % (0-2.5); Eosinophils # (Auto) 0.2 Thou/mm3 (0.0-0.5); Eosinophils % (Auto) 3 % (0-10); Hematocrit 33.6 % (36.0-46.0); Hemoglobin 11.4 g/dL (12.0-16.0); Immature Granulocytes % (Auto) 0 % (0-0); Immature Granulocytes Auto 0.02 Thou/mm3 (0.00-0.00); Lymphocytes # (Auto) 1.1 Thou/mm3 (1.0-4.8); Lymphocytes % (Auto) 16 % (10-50); Mean Corpuscular HGB Conc 33.9 g/dl (31.0-37.0); Mean Corpuscular Hemoglobin 28.8 pg (25.0-35.0); Mean Corpuscular Volume 85 fL (80-100); Monocytes # (Auto) 0.6 Thou/mm3 (0.0-0.8); Monocytes % (Auto) 9 % (0-12); Neutrophils # (Auto) 4.7 Thou/mm3 (1.8-7.7); Neutrophils % (Auto) 71 % (37-80); Nucleated Red Blood Cell % 0 /100 WBC (0); Platelet Count 150 Thou/mm3 (140-440); RDW Standard Deviation 39.4 fL (36.4-46.3); Red Blood Count 3.96 Miln/mm3 (4.00-5.20); White Blood Count 6.6 Thou/mm3 (3.6-11.0)
[2024-12-30 06:04] LABS: Alanine Aminotransferase 13 U/L (10-49); Albumin, Serum 4.2 gm/dL (3.4-4.8); Albumin/Globulin Ratio 2.1 (1.2-2.2); Alkaline Phosphatase 75 U/L (46-116); Anion Gap 8 (7-16); Aspartate Amino Transferase 16 U/L (0-34); BUN/Creatinine Ratio 22 Ratio (12-20); Bilirubin,Total 0.8 mg/dL (0.3-1.2); Blood Urea Nitrogen 22 mg/dL (9-23); Calcium 10.5 mg/dL (8.3-10.6); Calcium (Corrected) 10.5 mg/dL (8.5-10.1); Carbon Dioxide 26.1 mMol/L (20.0-31.0); Chloride 104 mMol/L (98-107); Estimated Creatinine Clearance 51.8 mL/min (>60); Glucose 112 mg/dL (74-106); Osmolality,Calculated 279 (275-295); Potassium 3.6 mMol/L (3.4-5.1); Sodium 138 mMol/L (136-145); Total Protein 6.2 gm/dL (5.7-8.2); eGFR 59 See Note
[2024-12-30] MEDS: cefTRIAXone 1,000 MG in SODIUM CHLORIDE 0.9% (Popper) 50 ML 1000 MG IV (08:08)
[2024-12-30] MEDS: SENNA TABLET 1 TAB PO (08:12)
[2024-12-30] MEDS: ASPIRIN EC 81 MG TABEC PO (08:12)
--- NOTE | 2024-12-30 08:20 | PD.RESPRO ---
Documentation for date of: 12/30/24 Subjective Subjective Interval history: Patient seen and examined at bedside. Patient complained of pressure-like chest pain earlier this morning, which resolved on its own. Patient described chest pain as an elephant sitting on her chest, denies any nausea, vomiting, diaphoresis and palpitations. Patient denied any chest pain currently. Patient's heart rate on rest sustains in 40s, on walking elevation of heart rate noted to 76 patient has good chronotropic response. Patient's fall was mechanical, no syncope, dizziness or presyncope noted. Patient continues to be hypertensive, currently on losartan 100 mg daily, clonidine 0.2 mg twice daily and hydralazine 50 three times daily. Echocardiogram shows Normal LV size and function with an EF of 60 to 65%. Diastolic dysfunction stage I. Normal RV size and function with normal RVSP. Mild TR. Moderate aortic valve sclerosis without any stenosis. Significant noncoronary cusp calcification seen. Mild to moderate MR With trace to mild MR. Will continue to monitor patient closely for chest pain. Exam Vital Signs Temp Pulse Resp BP Pulse Ox O2 Del Method 97.6 F 51 L 14 149/72 H 97 Room Air 12/30/24 04:00 12/30/24 04:00 12/30/24 04:00 12/30/24 04:00 12/30/24 04:00 12/30/24 04:00 Narrative Exam Physical Exam General: Awake and in no acute distress. Conversational and non-toxic appearing. HEENT: Normocephalic, atraumatic, mucous membranes moist. Heart: Regular rate and rhythm, no murmurs. Lungs: Clear to auscultation with no wheezing or crackles. Abdomen: Soft, nondistended, nontender, positive bowel sounds. ?No guarding or rebound tenderness. Neurologic: Alert and oriented x3, no gross neurological deficit, and patient able to move all 4 extremities. Extremities: No edema. Skin: No rash or ecchymoses. Objective Labs 12/31/24 05:07 12/31/24 05:07 Labs: Laboratory Results - last 24 hr 12/30/24 05:11 WBC 6.6 RBC 3.96 L Hgb 11.4 L Hct 33.6 L MCV 85 MCH 28.8 MCHC 33.9 RDW Std Deviation 39.4 Plt Count 150 Neut % (Auto) 71 Lymph % (Auto) 16 [place] % (Auto) 9 Eos % (Auto) 3 Baso % (Auto) 1 Neut # (Auto) 4.7 Lymph # (Auto) 1.1 [place] # (Auto) 0.6 Eos # (Auto) 0.2 Baso # (Auto) 0.0 Immature Gran # (Auto) 0.02 H Absolute Nucleated RBC 0.00 Immature Gran % 0 Nucleated RBC % 0 Sodium 138 Potassium 3.6 Chloride 104 Carbon Dioxide 26.1 Anion Gap 8 BUN 22 Creatinine 1.0 Estim Creat Clear Calc 51.8 L eGFR 59 L BUN/Creatinine Ratio 22 H Glucose 112 H Calculated Osmolality 279 Calcium 10.5 Corrected Calcium 10.5 H Total Bilirubin 0.8 AST 16 ALT 13 Alkaline Phosphatase 75 Total Protein 6.2 Albumin 4.2 Globulin 2.0 L Albumin/Globulin Ratio 2.1 ABG Interpretation ABG results: 12/28/24 07:13 VBG pH 7.44 VBG pCO2 41 VBG pO2 33 VBG Base Excess 3 Quality Measures Quality Measures none Advance care planning discussed with:: patient Assessment & Plan Assessment Current Active Medications: Generic Name Dose Route Start Last Admin Trade Name Freq PRN Reason Stop Dose Admin Acetaminophen 650 mg 12/28/24 18:30 Acetaminophen 325 Mg Tablet PO 01/27/25 18:29 Q6H PRN Fever >101.5 Acetaminophen 650 mg 12/28/24 18:30 12/29/24 09:16 Acetaminophen 325 Mg Tablet PO 01/27/25 18:29 650 mg Q6H PRN Administration PAIN SCALE 1-3 (mild Hydrocodone Bitart/Acetaminophen 1 tab 12/29/24 16:14 12/29/24 16:29 Hydrocodone/Apap 10/325 Tab PO 01/03/25 16:13 1 tab Q8HR PRN Administration Pain 4-10 Aspirin 81 mg 12/28/24 18:45 12/30/24 08:12 Aspirin Ec 81 Mg Tabec PO 01/27/25 18:44 81 mg QDAY HARI Administration Atorvastatin Calcium 80 mg 12/28/24 21:00 12/29/24 22:00 Atorvastatin Calcium 20 Mg Tablet PO 01/27/25 20:59 80 mg HS HARI Administration Clonidine 0.2 mg 12/28/24 21:00 12/29/24 22:00 Clonidine Hcl 0.1 Mg Tablet PO 01/27/25 20:59 0.2 mg BID HARI Administration Heparin Sodium (Porcine) 5,000 unit 12/28/24 21:00 12/29/24 22:07 Heparin Sod Inj 5000 Unit/Ml Vial SC 01/11/25 20:59 Not Given Q12HR HARI Ceftriaxone Sodium 1,000 mg/ 50 mls @ 100 mls/hr 12/29/24 09:00 12/30/24 08:08 Sodium Chloride IV 01/05/25 08:59 1,000 mls/hr QDAY HARI Administration Losartan Potassium 100 mg 12/29/24 11:00 12/29/24 12:12 Losartan Potassium 25 Mg Tablet PO 01/28/25 10:59 100 mg QDAY HARI Administration Ondansetron HCl 4 mg 12/28/24 18:30 Ondansetron Inj 2 Mg/Ml Inj 2 Ml IV 01/27/25 18:29 Q6H PRN NAUSEA OR VOMITING Protocol Sennosides 1 tab 12/30/24 09:00 12/30/24 08:12 Senna Tablet PO 01/29/25 08:59 1 tab QDAY HARI Administration Protocol Plan Assessment and Plan: Summary: Ms. Chan is a 74-year-old female with past medical history of hypertension, [id number] diabetes mellitus type 2, hyperlipidemia and coronary artery disease who was BIBA to [facility] emergency department on 12/28/2024 with a chief complaint of status post ground-level fall. When patient was initially found by EMS, complained of some chest discomfort, which resolved in the emergency department, MRI of head done in the emergency department showed concern of chronic/subacute infarcts, neurology was consulted recommended admission. Patient did have elevated troponin on presentation, EKG showed sinus bradycardia. # ACS-NSTEMI type II versus type I # Intermittent cardiac chest pain # Elevated troponin # Moderate coronary artery disease # Chronic diastolic heart failure with preserved ejection fraction (EF 60 to 65%) Patient on evaluation by EMS initially complained of chest discomfort was given nitro 0.4 mg and aspirin 162 mg by EMS, patient's chest pain/discomfort resolved in the emergency department. Patient's troponin was noted to be elevated at 0.107-> 0.103. EKG shows sinus bradycardia, no acute ST or T changes. Patient on assessment reports chest pain resolved. TSH 0.74, triglyceride 135, cholesterol 89, LDL 32, HDL 30, hemoglobin A1c 07/2024 5.8, BNP 118 chest x-ray showed no vascular congestion/pulmonary hypertension [facility] Cath 10/09/2024: [facility] completed showed moderate CAD with 40 to 50% stenosis in the mid LAD, proximal LCx, mid LCx as well as's 60 to 70% stenosis in the small distal LCx. RCA, left main, rest of the arteries with only minimal luminal irregularities. LVEF normal at greater than 70%, LVEDP 22 mmHg and there was no significant transvalvular aortic gradient ECHO 12/29/2024: Normal LV size and function with an EF of 60 to 65%. Diastolic dysfunction stage I. Normal RV size and function with normal RVSP. Mild TR. Moderate aortic valve sclerosis without any stenosis. Significant noncoronary cusp calcification seen. Mild to moderate MR With trace to mild MR. Recommendations: -Patient has acute episodes of intermittent chest pain. -Patient does have moderate coronary artery disease as evidenced by left heart cath done in September 2024. Patient needs aggressive management for coronary artery disease we will continue aspirin 81 mg daily and atorvastatin 80 mg at bedtime. Recommended to hold beta-blockers in setting of sinus bradycardia for now. -Keep potassium more than 4, magnesium more than 2 -Will follow the results of echocardiogram -Monitor for chest pain #Hypertensive emergency, resolved #Poorly controlled hypertension Patient presented initially with high blood pressure of 208/100 mmHg, patient reported discontinuing blood pressure medication about 2 months ago, was not taking any antihypertensive medication as was supposed to follow-up with specialist. Patient complains of headache for the last 10 days, currently also has generalized headache. Patient was given multiple doses of hydralazine, enalaprilat and clonidine in the emergency department. Recommendations: -Hold metoprolol succinate and nifedipine in setting of sinus bradycardia. -Start on hydralazine 50 mg 3 times daily -Losartan 100 mg daily -Continue 0.2 mg clonidine twice daily for now, will taper off to optimize regimen outpatient -Consider starting patient on amlodipine and isosorbide mononitrate for blood pressure control as needed. If patient continues to remain hypertensive. # Asymptomatic sinus bradycardia with good chronotropic response EKG in the emergency department showed sinus bradycardia, heart rate 52., Previous EKGs reviewed, no evidence of sinus bradycardia previously; patient denies any dizziness currently, did have a ground-level fall, fall likely mechanical. Patient's heart rate on walking increases to 70s, patient has excellent chronotropic response, is asymptomatic. Plan: -Continue telemonitoring, monitor for blocks/pauses -Avoid beta blockers, calcium channel blockers, Aricept and other medications that can exacerbate bradycardia -Patient will need outpatient follow-up with Holter monitoring. #Ground-level fall Reported ground-level mechanical fall, denies passing out, denies hitting head. CT cervical spine CT head negative Orthostatic lying 178/65, sitting 172/87, standing 160/103, orthostatic vitals negative MRI shows punctate foci of mildly restricted diffusion in the bilateral right greater than left semicentrum ovale. 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 Patient following up with physical therapy #Hyperlipidemia Triglyceride 135, cholesterol 89, LDL 32, HDL 30 -Continue atorvastatin 80 mg at bedtime #Diabetes mellitus type 2, [id number] Last hemoglobin A1c 5.8, patient prediabetic likely blood glucose per blood draw and range of 110 to 129. #EUGENIA on CKD stage IIIa, resolved Baseline BUN 16, creatinine 1.0, GFR 59 On presentation BUN 21, creatinine 1.4, GFR 39 EUGENIA in setting of hypertensive emergency versus prerenal #?Subacute stroke Patient presented with fall at home, fell backwards onto the floor. CT head was negative. The ED physician had noticed ataxia of the upper extremities upon observing the patient on re-evaluation so thus ordered an MRI. On my examination on admission the patient has no neurologic deficits and no ataxia, passed [id number] and [id number] tests well. Brain MRI without contrast showed punctate foci of mildly restricted diffusion in the bilateral right greater than left semicentrum ovale. 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 Differential includes small foci of acute on chronic ischemia, atypical demyelinating process, and infectious etiologies. -Neurologist Dr. Meza was consulted and will follow, appreciate recommendations #Urinary tract infection UA showed positive leukocyte esterase, 56 WBC, but no bacteria. Patient did not endorse any urinary symptoms at this time. However given the fall and uncertain etiology including possible metabolic encephalopathy secondary to UTI will empirically treat until culture result. -On IV antibiotics, pending cultures Thank you for the consult and allowing to participate in the care of the patient. Cardiology will continue to follow. Case discussed with Attending Dr. Pacheco. Dorys Dacosta PGY1 Disclaimer: This note was dictated by speech recognition. Minor errors in 911 dispatcher may be present due to voice recognition software. Attending Provider Attestation/Addendum I have personally seen and examined the patient separately on the above date of service and discussed the plan of care with the resident. I reviewed the resident Dr. Dorys Dacosta consultation progress note and agree with the resident findings and plan in the note above and have also edited the documentation to reflect my findings and plan. Mich Pacheco M.D. Interventional Cardiology
[2024-12-30] MEDS: LOSARTAN POTASSIUM 25 MG TABLET 100 MG PO (08:25)
[2024-12-30] MEDS: cloNIDine HCL 0.1 MG TABLET 0.2 MG PO ×2 (08:26→20:13)
[2024-12-30] MEDS: HEPARIN SOD INJ 5000 UNIT/ML VIAL SC ×2 (08:26→20:13)
--- NOTE | 2024-12-30 08:30 | PC.NURSE ---
Dr. Gama at bedside, patient alert and orieted x3, c/o chest pain, VS wnl, no sob, orders received, read back, and carried out.
[2024-12-30 09:00] LABS: Troponin I 0.109 ng/mL (0.0-0.045)
--- NOTE | 2024-12-30 09:02 | PC.NURSE ---
[facility], troponin 0.109, Dr. Gama made aware, no new orders. MD team rounding this AM.
--- NOTE | 2024-12-30 10:10 | PC.SS ---
Follow up note: Pt will return home with HH.
--- NOTE | 2024-12-30 11:12 | PC.SS ---
Late note 12-29-24: SS met with patient regarding her d/c plan.? Pt is alert/oriented.? Pt was admitted for Hypertensive Emergency.? Pt confirmed demographic and contact information is correct on facesheet.? Pt resides with her daughter.? Pt ambulates independently.? Pt states she has cane which she utilizes when need.? Pt is ok with all ADLs.? Patient?s pharmacy of choice is [facility].? Pt named her daughter, Francine Chan medical decision maker if she is unable.? Ss provided d/c options for home or SNF.? Patient?s choice is to return home upon d/c.? Pt does not have an advance directive, SS offered, and pt declined.? Pt states she is diabetic, has glucometer, and test strips.? Pt states she is not on dialysis.? Pt states she followed up with PCP Nov 30, 2024. D/C plan:? Return home Next of Kin:? Francine Chan, daughter, phone# [phone] PCP:? Dr. Yolande Ashton Address:? Correct on facesheet
[2024-12-30] MEDS: hydrALAZINE HCL 25 MG TABLET 50 MG PO (14:08)
--- NOTE | 2024-12-30 15:53 | ESPR_ITS ---
<Statement entered by Lali Roblero MD - 12/31/24 07:48> Patient was seen and examined by me personally. I have directly supervised and reviewed documentation by the team resident and agree with its findings with any exceptions or additional findings as below. Plan of care was discussed with the attending, Dr. May. Awaiting better BP control and likely d/c tomorrow. Lali Roblero, PGY-2 Documentation for date of: 12/30/24 Subjective Subjective Interval history: 12/30/2024: No acute events to report. Patient seen and examined in the morning, states she is having some continuous chest pressure like sensation which does not change in quality with deep inspiration. Patient does have history of elevated troponins; repeat ordered this morning is at baseline. Patient explained regarding her potential need for pacemaker for persistent bradycardia, but she is currently asymptomatic (no dizziness, BP stable - if elevated). Started the patient on Hydralazine 50mg TID for better BP control; could instead do isosorbide mononitrate instead for unstable angina and elevated BP; but will defer to cardiology for recommendations. Neurology assessed the patient's MRI and they believe findings are likely secondary to microvascular changes from hypertension; recommend continuing aspirin. Will continue to monitor the patient for any acute changes. Exam Vital Signs Temp Pulse Resp BP Pulse Ox O2 Del Method 97.2 F 46 L 18 187/98 H 96 Room Air 12/30/24 12:00 12/30/24 14:08 12/30/24 12:00 12/30/24 14:08 12/30/24 12:00 12/30/24 08:00 Narrative Exam Physical Exam General: Awake and in no acute distress. Conversational and non-toxic appearing. HEENT: Normocephalic, atraumatic, mucous membranes moist. Heart: Regular rate and rhythm, no murmurs. Lungs: Clear to auscultation with no wheezing or crackles. Abdomen: Soft, nondistended, nontender, positive bowel sounds. ?No guarding or rebound tenderness. Neurologic: Alert and oriented x3, no gross neurological deficit, and patient able to move all 4 extremities. Extremities: No edema. Skin: No rash or ecchymoses. Objective Labs 12/31/24 05:07 12/31/24 05:07 Labs: Laboratory Results - last 24 hr 12/30/24 05:11 WBC 6.6 RBC 3.96 L Hgb 11.4 L Hct 33.6 L MCV 85 MCH 28.8 MCHC 33.9 RDW Std Deviation 39.4 Plt Count 150 Neut % (Auto) 71 Lymph % (Auto) 16 [place] % (Auto) 9 Eos % (Auto) 3 Baso % (Auto) 1 Neut # (Auto) 4.7 Lymph # (Auto) 1.1 [place] # (Auto) 0.6 Eos # (Auto) 0.2 Baso # (Auto) 0.0 Immature Gran # (Auto) 0.02 H Absolute Nucleated RBC 0.00 Immature Gran % 0 Nucleated RBC % 0 Sodium 138 Potassium 3.6 Chloride 104 Carbon Dioxide 26.1 Anion Gap 8 BUN 22 Creatinine 1.0 Estim Creat Clear Calc 51.8 L eGFR 59 L BUN/Creatinine Ratio 22 H Glucose 112 H Calculated Osmolality 279 Calcium 10.5 Corrected Calcium 10.5 H Total Bilirubin 0.8 AST 16 ALT 13 Alkaline Phosphatase 75 Troponin I 0.109 H* Total Protein 6.2 Albumin 4.2 Globulin 2.0 L Albumin/Globulin Ratio 2.1 ABG Interpretation ABG results: 12/28/24 07:13 VBG pH 7.44 VBG pCO2 41 VBG pO2 33 VBG Base Excess 3 Quality Measures Quality Measures none Advance care planning discussed with:: patient Assessment & Plan Assessment Current Active Medications: Generic Name Dose Route Start Last Admin Trade Name Freq PRN Reason Stop Dose Admin Acetaminophen 650 mg 12/28/24 18:30 Acetaminophen 325 Mg Tablet PO 01/27/25 18:29 Q6H PRN Fever >101.5 Acetaminophen 650 mg 12/28/24 18:30 12/29/24 09:16 Acetaminophen 325 Mg Tablet PO 01/27/25 18:29 650 mg Q6H PRN Administration PAIN SCALE 1-3 (mild Hydrocodone Bitart/Acetaminophen 1 tab 12/29/24 16:14 12/29/24 16:29 Hydrocodone/Apap 10/325 Tab PO 01/03/25 16:13 1 tab Q8HR PRN Administration Pain 4-10 Aspirin 81 mg 12/28/24 18:45 12/30/24 08:12 Aspirin Ec 81 Mg Tabec PO 01/27/25 18:44 81 mg QDAY HARI Administration Atorvastatin Calcium 80 mg 12/28/24 21:00 12/29/24 22:00 Atorvastatin Calcium 20 Mg Tablet PO 01/27/25 20:59 80 mg HS HARI Administration Clonidine 0.2 mg 12/28/24 21:00 12/30/24 08:26 Clonidine Hcl 0.1 Mg Tablet PO 01/27/25 20:59 0.2 mg BID HARI Administration Heparin Sodium (Porcine) 5,000 unit 12/30/24 21:00 Heparin Sod Inj 5000 Unit/Ml Vial SC 01/13/25 20:59 Q12HR HARI Hydralazine HCl 50 mg 12/30/24 14:00 12/30/24 14:08 Hydralazine Hcl 25 Mg Tablet PO 01/29/25 13:59 50 mg TID HARI Administration Losartan Potassium 100 mg 12/29/24 11:00 12/30/24 08:25 Losartan Potassium 25 Mg Tablet PO 01/28/25 10:59 100 mg QDAY HARI Administration Ondansetron HCl 4 mg 12/28/24 18:30 Ondansetron Inj 2 Mg/Ml Inj 2 Ml IV 01/27/25 18:29 Q6H PRN NAUSEA OR VOMITING Protocol Sennosides 1 tab 12/30/24 09:00 12/30/24 08:12 Senna Tablet PO 01/29/25 08:59 1 tab QDAY HARI Administration Protocol Plan 74-year-old female with past medical history of poorly-controlled hypertension, non-insulin dependent type 2 diabetes, and CAD who presented to the ED on 12/28/2024 after a ground-level fall at home, subsequently found to have hypertensive emergency with end-organ damage possible subacute ischemic stroke and EUGENIA. #Hypertensive emergency, resolved #History of poorly controlled hypertension #Elevated troponin, stable #NSTEMI type 2 #Unstable Angina Patient presented with severely elevated BPs SBP >200 climbing as high as 254/93 while in the ED. She had complaint of headache for the last 7 days. Patient had a ground-level fall at home. CT head and cervical spine negative. MRI head non-con done in ED showed possible areas of acute on chronic ischemia - may suggest possible stroke secondary to hypertensive emergency. Timeline of symptoms unclear but patient on admission evaluation does not have any focal neurologic deficits. Teleneuro and stroke alert was not called due to likely subacute nature of the findings. Likely demand secondary to hypertension. On ED evaluation troponin was 0.107 which downtrended to 0.103 Plan: Continue Clonidine 0.2 mg BID and Losartan 100mg qday Added Hydralazine 50mg TID Will consider adding isosorbid mononitrate instead, pending cardiology recommendations #History of CAD #Bradycardia, Sinus Patient underwent left cardiac cath with Dr. Pacheco on her last admission in 09/2024. It showed moderate CAD with 40-50% stenosis in the mid LAD, proximal LCx, mid LCx as well as 60-70% stenosis in the small distal LCx. EF normal at 70%. Recommended aggresive medical management at that time, no stents placed. Patient failed to follow up as she lost the information. ECHO from 12/29/24 shows: Bubble study negative for any PFO or ASD. Normal LV size and function with an EF of 60 to 65%. Diastolic dysfunction stage I. Normal RV size and function with normal RVSP. Mild TR. Moderate aortic valve sclerosis without any stenosis. Significant noncoronary cusp calcification seen. Mild to moderate MR With trace to mild MR. Patient having sinus bradycardia (HR 30-40s) with preserved BP and asymptomatic Plan: Consulted Cardiology, appreciate recommendations Continue home aspirin 81 mg daily Continue home atorvastatin 80 mg HS daily Discontinued metoprolol succinate 50 mg qday and nifedipine 30mg po qday as there is sinus bradycardia Holter monitoring outpatient #Chronic Microvascular Changes Patient presented with fall at home, fell backwards onto the floor. CT head was negative. The ED physician had noticed ataxia of the upper extremities upon observing the patient on re-evaluation so thus ordered an MRI. On my examination on admission the patient has no neurologic deficits and no ataxia, passed [id number] and [id number] tests well. Brain MRI without contrast showed punctate foci of mildly restricted diffusion in the bilateral right greater than left semicentrum ovale. 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 Differential includes small foci of acute on chronic ischemia, atypical demyelinating process, and infectious etiologies. Echocardiography with bubble study ordered is negative TG 135, cholesterol 89, LDL 32 (well within target), HDL 30, TSH 0.74 Speech evaluation passed PT evaluation passed without assistance for ambulation Plan: Neurologist Dr. Meza was consulted and will follow, appreciate recommendations Continue home aspirin 81 mg daily Continue home atorvastatin 80 mg HS daily #EUGENIA, improving Likely secondary to hypertensive emergency. Patient creatinine on admission was 1.4. Baseline appears to be around 1.1. Cr improving to 1.3 Plan: Aggressive control of BP as above Avoid nephrotoxins Monitor with morning labs #UTI, ruled out UA showed positive leukocyte esterase, 56 WBC, but no bacteria. Patient did not endorse any urinary symptoms at this time. There is concern for possible metabolic encephalopathy secondary to UTI Blood cultures NG in 48 hours Urine culture mixed sammie, contamination Plan: Discontinued IV antibiotics #Ground-level fall CT head, cervical spine were negative. On examination the patient has no head trauma. There are no focal neurological deficits on exam Orthostatic vitals wnl Plan: PT evaluation as above Continuous telemetry and cardiac monitoring #History of non-insulin dependent type 2 diabetes Patient reports she takes metformin for diabetes. As patient's last A1c was 5.8 in 07/2024 and glucose On chem panel have ranged 110-120s Plan: Will resume home oral medication on discharge Hospital management: Lines: Peripheral IV Diet: Cardiac Bowel: Senna GI prophylaxis: None needed DVT prophylaxis: Heparin 5,000 U subQ Dispo: Monitoring bradycardia and blood pressure, cardiology recs for BP and unstable agina Code: DNR Patient seen and assessed with attending Dr. May and senior resident Dr. Annika Blandon, PGY-1 Attending Provider Attestation/Addendum I reviewed labs, imaging, EKG, home medications and prior available records. Face to face evaluation was performed by me. I have personally examined the patient and discussed assessment and plan with the IM team. I reviewed the resident note and agree with the plan with exceptions as below. Ground-level fall Non-STEMI Possible CVA Bradycardia Continue aspirin and atorvastatin MRI showed possible CVA. Discussed with neurology: Continue aspirin and atorvastatin. Manage BP Started antihypertensive treatment. Continue clonidine and losartan. Avoid calcium channel blockers and beta-blockers in the setting of bradycardia per cardiology. Started hydralazine 50 mg 3 times daily. Heart rate was in the 40s. Consulted cardiology: Recommended to avoid beta- blockers. Ordered echocardiogram that showed EF of 60 to 65% with mild to moderate valvular disease. Outpatient follow-up with cardiology. Outpatient Holter monitor Troponin peaked Ordered PT
[2024-12-30] MEDS: ISOSORBIDE ER MONONITRATE 30 MG TABCR PO (18:33)
[2024-12-30] MEDS: ACETAMINOPHEN 325 MG TABLET 650 MG PO (18:39)
--- NOTE | 2024-12-30 20:08 | PD.NEUROPROG ---
Documentation for date of: 12/30/24 Subjective Subjective Interval history: Patient was seen in telemetry today. Complains of headache. She stated that her blood pressure has been chronically high despite being compliant on medication intake Exam - Neurology Vital Signs Temp Pulse Resp BP Pulse Ox O2 Del Method 97.0 F 66 18 183/77 H 90 L Room Air 12/30/24 16:00 12/30/24 18:33 12/30/24 16:00 12/30/24 18:33 12/30/24 16:00 12/30/24 08:00 Narrative Exam GENERAL APPEARANCE: Well hydrated, well-nourished in no acute distress. HEENT: Normocephalic, atraumatic, extraocular movements intact. Pupils: Equal reacting to light and accommodation NECK: Supple, no JVD or bruits. CARDIOVASULAR: Heart: S1, S2 heard, regular without S3-S4 or murmur no rubs or gallops. LUNGS/CHEST: Clear to auscultation bilaterally. No rails, rhonchi, or wheezing. Normal inspection. ABDOMEN: Soft, nontender, with normal bowel sounds. No pulsatile masses. No rebound, rigidity, or guarding. Normal inspection and palpation. EXTREMITIES: Normal inspection and palpation. No edema, clubbing or cyanosis. SKIN: Warm and dry without rashes. Normal inspection. MUSCULOSKELETAL: No cervical, thoracic, lumbar or midline bony tenderness. Normal inspection. NEURO: Alert, awake and oriented x3. Cranial nerves: II through XII grossly intact. Speech and language: Normal with no dysarthria or dysphasia. Motor system: Tone and bulk: Normal: Strength: 5 out of 5 in all 4 extremities; No pronator drift noted. Deep tendon reflexes: 2+ bilaterally symmetrical. Plantar reflex: Downgoing bilaterally. Sensory system: Intact to all modalities of sensation bilaterally. Coordination: Intact to rctrnl-sffm-bqepy and gops-hnzw-oruj test bilaterally. No ataxia, no dysmetria, or dysdiadochokinesia noted. No intention tremors noted. Gait: Normal. Toe, heel, tandem walk all are normal. No signs of meningeal irritation noted. PSYCHIATRIC: Normal mood and affect. Objective Labs 12/31/24 05:07 12/31/24 05:07 Labs: Laboratory Results - last 24 hr 12/30/24 05:11 WBC 6.6 RBC 3.96 L Hgb 11.4 L Hct 33.6 L MCV 85 MCH 28.8 MCHC 33.9 RDW Std Deviation 39.4 Plt Count 150 Neut % (Auto) 71 Lymph % (Auto) 16 [place] % (Auto) 9 Eos % (Auto) 3 Baso % (Auto) 1 Neut # (Auto) 4.7 Lymph # (Auto) 1.1 Gordon # (Auto) 0.6 Eos # (Auto) 0.2 Baso # (Auto) 0.0 Immature Gran # (Auto) 0.02 H Absolute Nucleated RBC 0.00 Immature Gran % 0 Nucleated RBC % 0 Sodium 138 Potassium 3.6 Chloride 104 Carbon Dioxide 26.1 Anion Gap 8 BUN 22 Creatinine 1.0 Estim Creat Clear Calc 51.8 L eGFR 59 L BUN/Creatinine Ratio 22 H Glucose 112 H Calculated Osmolality 279 Calcium 10.5 Corrected Calcium 10.5 H Total Bilirubin 0.8 AST 16 ALT 13 Alkaline Phosphatase 75 Troponin I 0.109 H* Total Protein 6.2 Albumin 4.2 Globulin 2.0 L Albumin/Globulin Ratio 2.1 ABG Interpretation ABG results: 12/28/24 07:13 VBG pH 7.44 VBG pCO2 41 VBG pO2 33 VBG Base Excess 3 Assessment & Plan Assessment and plan (1) Headache: Status: Acute Assessment and plan: Cervical spine CT: Ruled out fracture Headache is secondary to uncontrolled hypertension Continue to control the blood pressure with current medications including clonidine nifedipine, metoprolol and losartan. (2) Hypertensive emergency: Status: Acute Assessment and plan: Better controlled now. Reassurance given to the patient regarding the MRI findings: Likely chronic small vessel disease from uncontrolled hypertension. Punctate foci of mildly restricted diffusion in the bilateral right greater than left semicentrum ovale. 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 Differential includes small foci of acute on chronic ischemia, atypical demyelinating process, and infectious etiologies. Consider correlation with contrast-enhanced brain MRI. Echocardiogram: Bubble study negative for any PFO or ASD. Consider GAYATHRI if high clinical index of suspicion. Normal LV size and function with an EF of 60 to 65%. Diastolic dysfunction stage I. Normal RV size and function with normal RVSP. Mild TR. Moderate aortic valve sclerosis without any stenosis. Significant noncoronary cusp calcification seen. Mild to moderate MR With trace to mild MR. Continue with aspirin, blood pressure control and statin.
[2024-12-30] MEDS: ATORVASTATIN CALCIUM 20 MG TABLET 80 MG PO (20:12)
[2024-12-30] MEDS: HYDROcodone/APAP 10/325 TAB PO (20:12)
[2024-12-31] VITALS (9 sets, daily range): BP systolic 110–167; BP diastolic 54–72; PULSE 41–52; RESP 14–21; TEMP 36.2–36.6; O2SAT 95–97; BMI 35.2
[2024-12-31 06:24] LABS: Basophils % (Auto) 0 % (0-2.5); Eosinophils # (Auto) 0.3 Thou/mm3 (0.0-0.5); Eosinophils % (Auto) 6 % (0-10); Hemoglobin 11.1 g/dL (12.0-16.0); Immature Granulocytes % (Auto) 0 % (0-0); Immature Granulocytes Auto 0.01 Thou/mm3 (0.00-0.00); Lymphocytes # (Auto) 0.5 Thou/mm3 (1.0-4.8); Lymphocytes % (Auto) 11 % (10-50); Mean Corpuscular HGB Conc 33.6 g/dl (31.0-37.0); Mean Corpuscular Hemoglobin 28.8 pg (25.0-35.0); Mean Corpuscular Volume 86 fL (80-100); Monocytes # (Auto) 0.5 Thou/mm3 (0.0-0.8); Monocytes % (Auto) 10 % (0-12); Neutrophils # (Auto) 3.3 Thou/mm3 (1.8-7.7); Neutrophils % (Auto) 72 % (37-80); Nucleated Red Blood Cell % 0 /100 WBC (0); Platelet Count 114 Thou/mm3 (140-440); RDW Standard Deviation 40.4 fL (36.4-46.3); Red Blood Count 3.86 Miln/mm3 (4.00-5.20); White Blood Count 4.6 Thou/mm3 (3.6-11.0)
[2024-12-31 06:51] LABS: Alanine Aminotransferase 82 U/L (10-49); Albumin, Serum 4.3 gm/dL (3.4-4.8); Albumin/Globulin Ratio 2.4 (1.2-2.2); Alkaline Phosphatase 107 U/L (46-116); Anion Gap 11 (7-16); Aspartate Amino Transferase 110 U/L (0-34); BUN/Creatinine Ratio 21 Ratio (12-20); Bilirubin,Total 1.2 mg/dL (0.3-1.2); Blood Urea Nitrogen 25 mg/dL (9-23); Calcium 10.5 mg/dL (8.3-10.6); Calcium (Corrected) 10.5 mg/dL (8.5-10.1); Carbon Dioxide 26.2 mMol/L (20.0-31.0); Chloride 103 mMol/L (98-107); Creatinine (Component) 1.2 mg/dL (0.6-1.3); Estimated Creatinine Clearance 43.2 mL/min (>60); Globulin 1.8 gm/dL (2.3-3.5); Glucose 104 mg/dL (74-106); Osmolality,Calculated 283 (275-295); Potassium 3.8 mMol/L (3.4-5.1); Sodium 140 mMol/L (136-145); Total Protein 6.1 gm/dL (5.7-8.2); eGFR 47 See Note
[2024-12-31] MEDS: amLODIPine BESYLATE 5 MG TABLET PO ×2 (08:31→10:02)
[2024-12-31] MEDS: ONDANSETRON INJ 2 MG/ML INJ 2 ML 4 MG IV (10:01)
[2024-12-31] MEDS: cloNIDine HCL 0.1 MG TABLET 0.2 MG PO (10:02)
[2024-12-31] MEDS: SENNA TABLET 1 TAB PO (10:03)
[2024-12-31] MEDS: LOSARTAN POTASSIUM 25 MG TABLET 100 MG PO (10:03)
[2024-12-31] MEDS: ISOSORBIDE ER MONONITRATE 30 MG TABCR PO (10:03)
[2024-12-31] MEDS: ASPIRIN EC 81 MG TABEC PO (10:03)
[2024-12-31] MEDS: HEPARIN SOD INJ 5000 UNIT/ML VIAL SC (10:04)
--- NOTE | 2024-12-31 11:42 | PD.RESPRO ---
Documentation for date of: 12/31/24 Subjective Subjective Interval history: Patient seen and examined at bedside. Patient has sinus bradycardia with good chronotrophic response Started on isosorbide 30 mg qday and amlodipine 5 mg for BP control, improved. Will continue to monitor patient closely for chest pain. Exam Vital Signs Temp Pulse Resp BP Pulse Ox O2 Del Method 97.3 F 42 L 14 157/69 H 96 Room Air 12/31/24 08:00 12/31/24 10:03 12/31/24 08:00 12/31/24 10:03 12/31/24 08:00 12/31/24 08:00 Narrative Exam Physical Exam General: Awake and in no acute distress. Conversational and non-toxic appearing. HEENT: Normocephalic, atraumatic, mucous membranes moist. Heart: Regular rate and rhythm, no murmurs. Lungs: Clear to auscultation with no wheezing or crackles. Abdomen: Soft, nondistended, nontender, positive bowel sounds. ?No guarding or rebound tenderness. Neurologic: Alert and oriented x3, no gross neurological deficit, and patient able to move all 4 extremities. Extremities: No edema. Skin: No rash or ecchymoses. Objective Labs 12/31/24 05:07 12/31/24 05:07 Labs: Laboratory Results - last 24 hr 12/31/24 05:07 WBC 4.6 RBC 3.86 L Hgb 11.1 L Hct 33.0 L MCV 86 MCH 28.8 MCHC 33.6 RDW Std Deviation 40.4 Plt Count 114 L D Neut % (Auto) 72 Lymph % (Auto) 11 [place] % (Auto) 10 Eos % (Auto) 6 Baso % (Auto) 0 Neut # (Auto) 3.3 Lymph # (Auto) 0.5 L [place] # (Auto) 0.5 Eos # (Auto) 0.3 Baso # (Auto) 0.0 Immature Gran # (Auto) 0.01 H Absolute Nucleated RBC 0.00 Immature Gran % 0 Nucleated RBC % 0 Sodium 140 Potassium 3.8 Chloride 103 Carbon Dioxide 26.2 Anion Gap 11 BUN 25 H Creatinine 1.2 Estim Creat Clear Calc 43.2 L eGFR 47 L BUN/Creatinine Ratio 21 H Glucose 104 Calculated Osmolality 283 Calcium 10.5 Corrected Calcium 10.5 H Total Bilirubin 1.2 AST 110 H ALT 82 H Alkaline Phosphatase 107 D Total Protein 6.1 Albumin 4.3 Globulin 1.8 L Albumin/Globulin Ratio 2.4 H ABG Interpretation ABG results: 12/28/24 07:13 VBG pH 7.44 VBG pCO2 41 VBG pO2 33 VBG Base Excess 3 Quality Measures Quality Measures none Advance care planning discussed with:: patient Assessment & Plan Assessment Current Active Medications: Generic Name Dose Route Start Last Admin Trade Name Freq PRN Reason Stop Dose Admin Acetaminophen 650 mg 12/28/24 18:30 Acetaminophen 325 Mg Tablet PO 01/27/25 18:29 Q6H PRN Fever >101.5 Acetaminophen 650 mg 12/28/24 18:30 12/30/24 18:39 Acetaminophen 325 Mg Tablet PO 01/27/25 18:29 650 mg Q6H PRN Administration PAIN SCALE 1-3 (mild Hydrocodone Bitart/Acetaminophen 1 tab 12/29/24 16:14 12/30/24 20:12 Hydrocodone/Apap 10/325 Tab PO 01/03/25 16:13 1 tab Q8HR PRN Administration Pain 4-10 Amlodipine Besylate 5 mg 12/31/24 07:00 12/31/24 10:02 Amlodipine Besylate 5 Mg Tablet PO 01/30/25 06:59 5 mg QDAY HARI Administration Aspirin 81 mg 12/28/24 18:45 12/31/24 10:03 Aspirin Ec 81 Mg Tabec PO 01/27/25 18:44 81 mg QDAY HARI Administration Atorvastatin Calcium 80 mg 12/28/24 21:00 12/30/24 20:12 Atorvastatin Calcium 20 Mg Tablet PO 01/27/25 20:59 80 mg HS HARI Administration Clonidine 0.2 mg 12/28/24 21:00 12/31/24 10:02 Clonidine Hcl 0.1 Mg Tablet PO 01/27/25 20:59 0.2 mg BID HARI Administration Heparin Sodium (Porcine) 5,000 unit 12/30/24 21:00 12/31/24 10:04 Heparin Sod Inj 5000 Unit/Ml Vial SC 01/13/25 20:59 5,000 unit Q12HR HARI Administration Isosorbide Mononitrate 30 mg 12/30/24 18:00 12/31/24 10:03 Isosorbide Er Mononitrate 30 Mg Tabcr PO 01/29/25 17:59 30 mg QDAY HARI Administration Losartan Potassium 100 mg 12/29/24 11:00 12/31/24 10:03 Losartan Potassium 25 Mg Tablet PO 01/28/25 10:59 100 mg QDAY HARI Administration Ondansetron HCl 4 mg 12/28/24 18:30 Ondansetron Inj 2 Mg/Ml Inj 2 Ml IV 01/27/25 18:29 Q6H PRN NAUSEA OR VOMITING Protocol Sennosides 1 tab 12/30/24 09:00 12/31/24 10:03 Senna Tablet PO 01/29/25 08:59 1 tab QDAY HARI Administration Protocol Plan Assessment and Plan: Summary: Ms. Chan is a 74-year-old female with past medical history of hypertension, ued-njvrnvn-thpjycetb diabetes mellitus type 2, hyperlipidemia and coronary artery disease who was BIBA to [facility] emergency department on 12/28/2024 with a chief complaint of status post ground-level fall. When patient was initially found by EMS, complained of some chest discomfort, which resolved in the emergency department, MRI of head done in the emergency department showed concern of chronic/subacute infarcts, neurology was consulted recommended admission. Patient did have elevated troponin on presentation, EKG showed sinus bradycardia. # ACS-NSTEMI type II # Intermittent cardiac chest pain # Elevated troponin # Moderate coronary artery disease # Chronic diastolic heart failure with preserved ejection fraction (EF 60 to 65%) Patient on evaluation by EMS initially complained of chest discomfort was given nitro 0.4 mg and aspirin 162 mg by EMS, patient's chest pain/discomfort resolved in the emergency department. Patient's troponin was noted to be elevated at 0.107-> 0.103. EKG shows sinus bradycardia, no acute ST or T changes. Patient on assessment reports chest pain resolved. TSH 0.74, triglyceride 135, cholesterol 89, LDL 32, HDL 30, hemoglobin A1c 07/2024 5.8, BNP 118 chest x-ray showed no vascular congestion/pulmonary hypertension C Cath 10/09/2024: LHC completed showed moderate CAD with 40 to 50% stenosis in the mid LAD, proximal LCx, mid LCx as well as's 60 to 70% stenosis in the small distal LCx. RCA, left main, rest of the arteries with only minimal luminal irregularities. LVEF normal at greater than 70%, LVEDP 22 mmHg and there was no significant transvalvular aortic gradient ECHO 12/29/2024: Normal LV size and function with an EF of 60 to 65%. Diastolic dysfunction stage I. Normal RV size and function with normal RVSP. Mild TR. Moderate aortic valve sclerosis without any stenosis. Significant noncoronary cusp calcification seen. Mild to moderate MR With trace to mild MR. Recommendations: -Patient has acute episodes of intermittent chest pain. -Patient does have moderate coronary artery disease as evidenced by left heart cath done in September 2024. Patient needs aggressive management for coronary artery disease we will continue aspirin 81 mg daily and atorvastatin 80 mg at bedtime. Recommended to hold beta-blockers in setting of sinus bradycardia for now. -Keep potassium more than 4, magnesium more than 2 -Will follow the results of echocardiogram -Monitor for chest pain #Hypertensive emergency, resolved #Poorly controlled hypertension Patient presented initially with high blood pressure of 208/100 mmHg, patient reported discontinuing blood pressure medication about 2 months ago, was not taking any antihypertensive medication as was supposed to follow-up with specialist. Patient complains of headache for the last 10 days, currently also has generalized headache. Patient was given multiple doses of hydralazine, enalaprilat and clonidine in the emergency department. Recommendations: -Hold metoprolol succinate and nifedipine in setting of sinus bradycardia. -Start on hydralazine 50 mg 3 times daily -Losartan 100 mg daily -Continue 0.2 mg clonidine twice daily for now, will taper off to optimize regimen outpatient -Currently on amlodipine 5 mg and isosorbide mononitrate 30mg for blood pressure control as needed. If patient continues to remain hypertensive. # Asymptomatic sinus bradycardia with good chronotropic response EKG in the emergency department showed sinus bradycardia, heart rate 52., Previous EKGs reviewed, no evidence of sinus bradycardia previously; patient denies any dizziness currently, did have a ground-level fall, fall likely mechanical. Patient's heart rate on walking increases to 70s, patient has excellent chronotropic response, is asymptomatic. Plan: -Continue telemonitoring, monitor for blocks/pauses -Avoid beta blockers, calcium channel blockers, Aricept and other medications that can exacerbate bradycardia -Patient will need outpatient follow-up with Holter monitoring. #Ground-level fall Reported ground-level mechanical fall, denies passing out, denies hitting head. CT cervical spine CT head negative Orthostatic lying 178/65, sitting 172/87, standing 160/103, orthostatic vitals negative MRI shows punctate foci of mildly restricted diffusion in the bilateral right greater than left semicentrum ovale. 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 Patient following up with physical therapy #Hyperlipidemia Triglyceride 135, cholesterol 89, LDL 32, HDL 30 -Continue atorvastatin 80 mg at bedtime #Diabetes mellitus type 2, [id number] Last hemoglobin A1c 5.8, patient prediabetic likely blood glucose per blood draw and range of 110 to 129. #EUGENIA on CKD stage IIIa, resolved Baseline BUN 16, creatinine 1.0, GFR 59 On presentation BUN 21, creatinine 1.4, GFR 39 EUGENIA in setting of hypertensive emergency versus prerenal #?Subacute stroke Patient presented with fall at home, fell backwards onto the floor. CT head was negative. The ED physician had noticed ataxia of the upper extremities upon observing the patient on re-evaluation so thus ordered an MRI. On my examination on admission the patient has no neurologic deficits and no ataxia, passed [id number] and [id number] tests well. Brain MRI without contrast showed punctate foci of mildly restricted diffusion in the bilateral right greater than left semicentrum ovale. 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 Differential includes small foci of acute on chronic ischemia, atypical demyelinating process, and infectious etiologies. -Neurologist Dr. Meza was consulted and will follow, appreciate recommendations #Urinary tract infection UA showed positive leukocyte esterase, 56 WBC, but no bacteria. Patient did not endorse any urinary symptoms at this time. However given the fall and uncertain etiology including possible metabolic encephalopathy secondary to UTI will empirically treat until culture result. Thank you for the consult and allowing to participate in the care of the patient. Cardiology will continue to follow. Case discussed with Attending Dr. Pacheco. Dorys Dacosta PGY1 Disclaimer: This note was dictated by speech recognition. Minor errors in radio interference expert may be present due to voice recognition software. Attending Provider Attestation/Addendum I have personally seen and examined the patient separately on the above date of service and discussed the plan of care with the resident. I reviewed the resident Dr. Dorys Dacosta consultation progress note and agree with the resident findings and plan in the note above and have also edited the documentation to reflect my findings and plan. Mich Pacheco M.D. Interventional Cardiology
--- NOTE | 2024-12-31 11:57 | ESDS_ITS ---
<Statement entered by Lali Roblero MD - 01/01/25 07:49> Patient was seen and examined by me personally. I have reviewed the below documentation by the team resident and agree with its findings with any exceptions as below. Discharge plan was discussed with the attending, Dr. May. Lali Roblero, PGY-2 Planned Discharge Date 12/31/24 DS: Providers Provider Date of admission: 12/29/24 15:00 Primary care physician: Yolande Ashton PA-C Admitting Provider: Gurmeet Montoya MD Attending Provider on Admission: Fausto May MD Consults: 12/28/24 18:33 Consult to Neurology / Tele-Neurology Routine Comment: Consulting Provider: Andrés Meza 12/28/24 18:37 Referral Physical Therapy Stat Comment: Physician Instructions: 12/28/24 18:38 Referral Speech Therapy Stat Comment: 12/28/24 18:52 Consult to Cardiology Routine Comment: Hypertensive emergency, history of CAD Consulting Provider: Mich Pacheco 12/28/24 22:30 [facility] Referral - Knowledge Deficit Routine Comment: Positive screening for knowledge deficit needs. Attending Provider on DC: Julio Blandon MD Discharging Provider: Julio Blandon MD DS: Diagnosis Problem List Completed Was Problem List Reviewed/Reconciled?: Yes Hospital Course Hospital Course Hospital course: 74-year-old female with past medical history of poorly controlled hypertension, ofk-pqufjgk-uhrhzeldy type 2 diabetes, coronary artery disease presented to the ED on 12/28/2024 after she sustained a ground-level fall at home without loss of consciousness. In the ED, patient presented with hypertensive emergency, sinus bradycardia, afebrile and satting 97 on room air. Pertinent lab findings included signs of acute kidney injury, elevated calcium and elevated troponin. Head CT and cervical spine CT were negative for any acute processes. Brain MRI was ordered which showed punctate foci of mildly restricted diffusion in the bilateral right greater semicentrum ovale; moreover, neurology was consulted but upon reassessing imaging findings recommendation was that the patient has microvascular changes secondary to hypertension. Patient was admitted for hypertensive emergency. Cardiology was also consulted during hospitalization as the patient was having persistent sinus bradycardia, unstable angina and also for blood pressure management. Patient's troponins plateaued after several repeat analysis patient's blood pressure medications were modified as she continued to have sinus bradycardia. Patient was started on isosorbide mononitrate and amlodipine instead of the metoprolol and nifedipine she was previously on to stabilize both blood pressure and unstable angina symptoms. Echo ordered showed normal left ventricular size and function with ejection fraction of 60 to 65% with diastolic dysfunction stage I. Cardiology would like to follow-up with the patient outpatient for Holter monitoring. Patient will be discharged with the following strict instructions. Please start taking Amlodipine 5mg tab by mouth once a day and Isosorbide mononitrate 30mg by mouth daily Stop taking metoprolol succinate 50mg, nifedipine 30mg, rosuvastatin 10mg and valsartan 320mg Continue all other home medications as prescirbed Follow-up with cardiology within 1 week; you will need Holter monitoring for slow heart rate AND blood pressure management Follow-up with your PCP within 1-2 weeks; ask your PCP to work up for secondary causes of hypertension If your symptoms worsen or if you develop new chest pain, shortness of breath, dizziness or fainting - please come back to the ED immediately. Hospital Diagnosis: #Hypertensive emergency, resolved #History of poorly controlled hypertension #Elevated troponin, stable #NSTEMI type 2 #Unstable Angina #History of CAD #Bradycardia, Sinus #Chronic Microvascular Changes #EUGENIA, improving #Ground-level fall #History of non-insulin dependent type 2 diabetes Julio Blandon, PGY-1 Status at Discharge Overall status at discharge: patient is progressing back to baseline Time Spent with Patient Time attestation: Total time spent providing and/or coordinating discharge services: 45 minutes Time spent: Greater than 30 minutes Exam Vital Signs Temp Pulse Resp BP Pulse Ox O2 Del Method 97.3 F 42 L 14 157/69 H 96 Room Air 12/31/24 08:00 12/31/24 10:03 12/31/24 08:00 12/31/24 10:03 12/31/24 08:00 12/31/24 08:00 Narrative Exam Physical Exam General: Awake and in no acute distress. Conversational and non-toxic appearing. HEENT: Normocephalic, atraumatic, mucous membranes moist. Heart: Regular rate and rhythm, no murmurs. Lungs: Clear to auscultation with no wheezing or crackles. Abdomen: Soft, nondistended, nontender, positive bowel sounds. ?No guarding or rebound tenderness. Neurologic: Alert and oriented x3, no gross neurological deficit, and patient able to move all 4 extremities. Extremities: No edema. Skin: No rash or ecchymoses. Discharge Plan Plan Patient Disposition: HOME (Self Care) Care Plan Goals: Please start taking Amlodipine 5mg tab by mouth once a day and Isosorbide mononitrate 30mg by mouth daily Stop taking metoprolol succinate 50mg, nifedipine 30mg, rosuvastatin 10mg and valsartan 320mg Continue all other home medications as prescirbed Follow-up with cardiology within 1 week; you will need Holter monitoring for slow heart rate AND blood pressure management Follow-up with your PCP within 1-2 weeks; ask your PCP to work up for secondary causes of hypertension If your symptoms worsen or if you develop new chest pain, shortness of breath, dizziness or fainting - please come back to the ED immediately. Prescriptions/Referrals Prescriptions/Med Rec: New isosorbide mononitrate 30 mg Tablet Extended Release 24 Hr 30 mg PO QDAY 30 Days Qty: 30 0RF amlodipine 5 mg Tablet 5 mg PO QDAY 30 Days Qty: 30 0RF Continued diphenhydramine HCl 50 MG capsule 50 mg PO QHSPRN PRN (Reason: Sleep) Qty: 0 metformin [Glucophage] 500 MG tablet 500 mg PO DAILY Qty: 0 gabapentin 300 MG capsule 300 mg PO BID Qty: 0 hydrocodone-acetaminophen 10-325 mg tablet 1 tab PO BID PRN (Reason: Pain) atorvastatin 80 mg tablet 80 mg PO HS 30 Days Qty: 30 1RF ketoconazole 2 % cream TOPICAL BID Patient Comments: APPLY TOPICALLY TO THE AFFECTED AREA TWICE DAILY FOR 6 WEEKS aspirin 81 mg tablet,delayed release (DR/EC) 81 mg PO QDAY 30 Days Qty: 30 3RF Patient Comments: TAKE 1 TABLET BY MOUTH BY MOUTH ONCE A DAY losartan 100 mg tablet 100 mg PO QDAY 30 Days Qty: 30 3RF clonidine HCl 0.2 mg tablet 0.2 mg PO BID 30 Days Qty: 60 3RF Discontinued metoprolol succinate 50 mg tablet extended release 24 hr 50 mg PO BID 30 Days Qty: 60 1RF rosuvastatin 10 mg tablet 10 mg PO HS Patient Comments: TAKE 1 TABLET BY MOUTH EVERY NIGHT FOR CHOLESTEROL nifedipine 30 mg tablet extended release 30 mg PO QDAY Patient Comments: TAKE 1 TABLET BY MOUTH DAILY FOR BLOOD PRESSURE valsartan 320 mg tablet 320 mg PO QDAY Patient Comments: TAKE 1 TABLET BY MOUTH EVERY DAY FOR BLOOD PRESSURE Referrals: Mich Pacheco MD [Physician] - Yolande Ashton PA-C [Primary Care Provider] - Patient/Caregiver Discharge Instructions Education Materials: Unstable Angina, Recognizing a Heart Attack or Angina, Blood Pressure Check Steps Print Language: Afghan Stand Alone Forms: Lizabeth Award Info., Patient Portal Info Letter Discharge Order Discharge Orders: Discharge (Routine); Ordered 12/31/24 Ordered By: Lali Roblero Quality Discharge Quality Measures VTE prophylaxis Attestestation Attestation I reviewed labs, imaging, EKG, home medications and prior available records. Face to face evaluation was performed by me. I have personally examined the patient and discussed assessment and plan with the IM team. I reviewed the resident note and agree with the plan with exceptions as below. Ground-level fall Non-STEMI Chest pain at rest Possible CVA Bradycardia Hypertensive urgency Continue aspirin and atorvastatin MRI showed possible CVA. Discussed with neurology: Continue aspirin and atorvastatin. Manage BP Started antihypertensive treatment. Continue clonidine and losartan. Avoid nifedipine and beta-blockers in the setting of bradycardia per cardiology. Continue isosorbide dinitrate and amlodipine. Heart rate was in the 40s. Consulted cardiology: Recommended to avoid beta- blockers. Ordered echocardiogram that showed EF of 60 to 65% with mild to moderate valvular disease. Outpatient follow-up with cardiology. Outpatient Holter monitor Troponin peaked Ordered PT Time spent is 40 minutes. More than 50% of the time was spent on patient education and coordination of care.
[2024-12-31] MEDS: ACETAMINOPHEN 325 MG TABLET 650 MG PO (12:07)
--- NOTE | 2024-12-31 13:24 | PC.NURSE ---
Patient discharge pending family member/transportation at 15:00.
--- NOTE | 2024-12-31 23:58 | VVPN_ITS ---
Telemedicine visit statement This visit was conducted with the use of virtual visit was obtained on 12/31/24. Documentation for date of: 12/31/24 Subjective Subjective Interval history: Patient is in telemetry. No new symptoms reported. Continues to have a headache which has been chronic. Her blood pressure has been better controlled Virtual exam Vital Signs Temp Pulse Resp BP Pulse Ox O2 Del Method 97.7 F 46 L 15 129/55 L 96 Room Air 12/31/24 15:30 12/31/24 15:30 12/31/24 15:30 12/31/24 15:30 12/31/24 15:30 12/31/24 12:00 Objective Labs 12/31/24 05:07 12/31/24 05:07 Labs: Laboratory Results - last 24 hr 12/31/24 05:07 WBC 4.6 RBC 3.86 L Hgb 11.1 L Hct 33.0 L MCV 86 MCH 28.8 MCHC 33.6 RDW Std Deviation 40.4 Plt Count 114 L D Neut % (Auto) 72 Lymph % (Auto) 11 Randolph % (Auto) 10 Eos % (Auto) 6 Baso % (Auto) 0 Neut # (Auto) 3.3 Lymph # (Auto) 0.5 L Randolph # (Auto) 0.5 Eos # (Auto) 0.3 Baso # (Auto) 0.0 Immature Gran # (Auto) 0.01 H Absolute Nucleated RBC 0.00 Immature Gran % 0 Nucleated RBC % 0 Sodium 140 Potassium 3.8 Chloride 103 Carbon Dioxide 26.2 Anion Gap 11 BUN 25 H Creatinine 1.2 Estim Creat Clear Calc 43.2 L eGFR 47 L BUN/Creatinine Ratio 21 H Glucose 104 Calculated Osmolality 283 Calcium 10.5 Corrected Calcium 10.5 H Total Bilirubin 1.2 AST 110 H ALT 82 H Alkaline Phosphatase 107 D Total Protein 6.1 Albumin 4.3 Globulin 1.8 L Albumin/Globulin Ratio 2.4 H ABG Interpretation ABG results: 12/28/24 07:13 VBG pH 7.44 VBG pCO2 41 VBG pO2 33 VBG Base Excess 3 Assessment & Plan Problem List (1) Hypertensive emergency: Status: Acute Assessment and plan: Patient presented with altered mental status and headache, resolving, back to baseline. Reassurance given to the patient regarding the negative MRI brain for acute stroke. Aspirin, better blood and statin. Follow-up with me in 2 weeks, stable for neurology standpoint. (2) Headache: Status: Acute Assessment and plan: Most likely secondary to uncontrolled blood pressure. Continue with gabapentin
== END 2024-12-31 15:43 | disposition home or self-care (01) | DRG 281 ==
LOC: SERX 17:45 → SERHOLD 12-29 06:33 → S2NX 12-29 06:34
PROVIDERS: Emergency Medicine; Student in an Organized Health Care Education/Training Program; Admitting Provider Student in an Organized Health Care Education/Training Program; Emergency Provider Emergency Medicine; PCP Physician Assistant; Visit Provider Student in an Organized Health Care Education/Training Program
DX: I16.1 Hypertensive emergency (principal); I50.32 Chronic diastolic (congestive) heart failure; I21.A1 Myocardial infarction type 2; N17.9 Acute kidney failure, unspecified; N39.0 Urinary tract infection, site not specified; E11.22 Type 2 diabetes mellitus with diabetic chronic kidney disease; I13.0 Hypertensive heart and chronic kidney disease with heart failure and stage 1 through stage 4 chronic kidney disease, or unspecified chronic kidney disease; G89.29 Other chronic pain; I25.10 Atherosclerotic heart disease of native coronary artery without angina pectoris; E78.5 Hyperlipidemia, unspecified; R27.0 Ataxia, unspecified; N18.31 Chronic kidney disease, stage 3a; R48.2 Apraxia; R00.1 Bradycardia, unspecified; I35.8 Other nonrheumatic aortic valve disorders; W18.30XA Fall on same level, unspecified, initial encounter; Z66 Do not resuscitate; Z79.84 Long term (current) use of oral hypoglycemic drugs; Z87.891 Personal history of nicotine dependence; Z79.899 Other long term (current) drug therapy; Z79.82 Long term (current) use of aspirin; Z90.710 Acquired absence of both cervix and uterus; Y92.009 Unspecified place in unspecified non-institutional (private) residence as the place of occurrence of the external cause; Z88.8 Allergy status to other drugs, medicaments and biological substances
CPT/HCPCS: 36415; 70450; 70551; 71045; 72125; 80053; 80061; 80307; 81001; 82803; 83605; 83735; 83880; 84100; 84443; 84484; 85025; 85610; 87040; 87086; 92610; 93306; 97161; G0378; J0360; J0696; J1643; J2405; J7050; A9270

== ENCOUNTER 2025-06-16 11:19 | Emergency (ER) | payer OTHER, MEDICAID, SELFPAY ==
[2025-06-16 11:29] VITALS: PULSE 60; O2SAT 96
[2025-06-16 11:41] VITALS: BP 181/77; PULSE 60; RESP 18; TEMP 37.2; O2SAT 97; BMI 36.6
--- NOTE | 2025-06-16 11:44 | PD.EDADULT ---
ED General RME/HPI General Chief complaint: Extremity Injury, Upper Stated complaint: RIGHT WRIST PAIN Time Seen by Provider: 06/16/25 11:43 Arrival date/time: 06/16/25 11:19 CC: Persistent right wrist pain HPI patient fell several days ago was seen by urgent care was told that it is a nondisplaced fracture, was placed in a splint, and has a follow-up with the PCP for referral for Ortho. Patient states that half a [place] is not managing the pain . Patient also was noted to be hypertensive and took her hypertension medications this morning. Patient denies any subsequent falls denies headache shortness of breath difficulty breathing. Patient has a splint on the wrist. Related Data Home Medications ?Medication ?Instructions ?Recorded ?Confirmed diphenhydramine HCl 50 mg capsule 50 mg PO QHSPRN PRN Sleep ##0 10/17/13 12/28/24 metformin 500 mg tablet 500 mg PO DAILY #0 tabs 10/17/13 12/28/24 (Glucophage) gabapentin 300 mg capsule 300 mg PO BID #0 caps 07/09/14 12/28/24 hydrocodone 10 mg-acetaminophen 1 tab PO BID PRN Pain 08/16/24 12/28/24 325 mg tablet ketoconazole 2 % topical cream applic topical BID 12/28/24 Previous Rx's ?Medication ?Instructions ?Recorded atorvastatin 80 mg tablet 80 mg PO HS 30 days #30 tabs 10/10/24 aspirin 81 mg tablet,delayed 81 mg PO QDAY 1 month #30 tabs 12/31/24 release clonidine HCl 0.2 mg tablet 0.2 mg PO BID 1 month #60 tabs 12/31/24 losartan 100 mg tablet 100 mg PO QDAY 30 days #30 tabs 12/31/24 ondansetron 4 mg disintegrating 4 mg PO Q8H #10 tabs 06/16/25 tablet Allergies Allergy/AdvReac Type Severity Reaction Status Date / Time pseudoephedrine AdvReac Severe RAPID Verified 06/16/25 11:28 HEART BEAT Review of Systems Review of Systems Narrative Review of Systems: GEN: No fever, no chills, no weight loss EYES: No discharge, no visual changes, no pain HEENT: No ear pain, no congestion, no sore throat PULM: No shortness of breath, no cough, no congestion CV: No chest pain, no dyspnea on exertion, no palpitations GI: No nausea, no vomiting, no diarrhea, no pain, no constipation : No frequency, no urgency, no dysuria MUSC/SKEL: + joint pain, no back pain SKIN: No rash PSYCH: No hallucinations, no depression HEME/LYMPH: No easy bleeding or bruising tendencies NEURO: No weakness, no headache Past Medical History Past Medical History CARDIAC: Positive Cardiac Disorders and Hypertension; Negative Congestive Heart Failure RESPIRATORY: Negative Chronic Obstructive Pulmonary Disease (COPD) GENITOURINARY: Negative Renal Disease ENDOCRINE: Positive Endocrine Disorders and Diabetes Mellitus Type 2; Negative Diabetes Mellitus Type 1 OTHER HISTORY: Negative Blood Transfusions Surgical History SURGICAL: Positive Hysterectomy Social History SMOKING STATUS: Former smoker ED Exam Narrative Physical exam: [General: Obese in mild discomfort but not in any acute distress Head normocephalic HEENT: Within acceptable limits Neck is supple nontender Chest equal chest rise nontender to palpation Respiratory: Clear to auscultation no wheezes crackles or rubs CV: Rate rhythm is regular no murmurs rubs or clicks Abdomen is distended secondary to body habitus soft nontender no masses positive bowel sounds all 4 quadrants Back: No CVA tenderness no spinous process tenderness from cervical spine thoracic and lumbar spine Skin: Intact no petechiae rash induration ulceration or crepitus Extremities: Right upper extremity wrist: The wrist is edematous with a Velcro prefab splint on the wrist. Cap refill in the digits less than 2 seconds neurosensory intact the digits are not edematous. There is full range of motion of the elbow and shoulder. Moving all other extremities against resistance cap refill less than 2 seconds neurosensory intact Neuro: Awake alert oriented x3 Glascow coma 15 no focal deficits] Course Quality Measures none Orders Category Date Time Status XR wrist comp RT min 3V Stat Exams 06/16/25 11:47 Taken HYDROcodone*/APAP 5/325 [[place] 5/325] Med 06/16/25 11:43 Discontinued 1 tab PO X1 ONE Ondansetron Odt [Zofran Odt] Med 06/16/25 11:43 Discontinued 4 mg PO X1 ONE Vital Signs Vital signs: Vital Signs Temperature 98.9 F 06/16/25 11:41 Pulse Rate 60 06/16/25 11:41 Respiratory Rate 18 06/16/25 11:41 Blood Pressure 181/77 H 06/16/25 11:41 Pulse Oximetry (%) 97 06/16/25 11:41 Oxygen Delivery Method Room Air 06/16/25 11:41 Discharge Plan Plan Patient Disposition: HOME (Self Care) Patient condition on transfer: Stable Prescriptions/Referrals Prescriptions/Med Rec: New ondansetron 4 mg tablet,disintegrating 4 mg PO Q8H Qty: 10 0RF No Action diphenhydramine HCl 50 MG capsule 50 mg PO QHSPRN PRN (Reason: Sleep) Qty: 0 metformin [Glucophage] 500 MG tablet 500 mg PO DAILY Qty: 0 gabapentin 300 MG capsule 300 mg PO BID Qty: 0 hydrocodone-acetaminophen 10-325 mg tablet 1 tab PO BID PRN (Reason: Pain) atorvastatin 80 mg tablet 80 mg PO HS 30 Days Qty: 30 1RF ketoconazole 2 % cream TOPICAL BID Patient Comments: APPLY TOPICALLY TO THE AFFECTED AREA TWICE DAILY FOR 6 WEEKS aspirin 81 mg tablet,delayed release (DR/EC) 81 mg PO QDAY 30 Days Qty: 30 3RF Patient Comments: TAKE 1 TABLET BY MOUTH BY MOUTH ONCE A DAY losartan 100 mg tablet 100 mg PO QDAY 30 Days Qty: 30 3RF clonidine HCl 0.2 mg tablet 0.2 mg PO BID 30 Days Qty: 60 3RF Referrals: Yolande Ashton PA-C [Primary Care Provider] - In 1 week Nabeel Tadeo MD [Physician] - In 1 week Problem List Clinical Impression: Pain in wrist Patient/Caregiver Discharge Instructions Other Activity Instructions:: Keep the wrist splint on at all times apply ice keep that wrist above the level of your heart while sitting or laying down. Take a full tablet of the pain medication. Take the nausea medicine 10 to 15 minutes before you take the pain tablet. Follow-up as stated with your PCP tomorrow for referral to an orthopod. If there is a worsening of symptoms in spite of the medications return the emergency room immediately for further evaluation. Education Materials: Treating Wrist Fractures Print Language: Kinyarwanda Stand Alone Forms: Lizabeth Award Info., Patient Portal Info Letter, Work/School Release MINE/ANKUR Supervising Physician PA/ANKUR Supervising Physician: Mak Ho ENP [facility] Clinical Information Provided by patient and EMS Medical Records [facility] Chronic Illness/Social Conditions which may negatively complicate care or outcome(s)-explain: None or not applicable EKG EKG not done Lab Interpretation Labs: none Imaging Provider imaging interpretation(s): X-ray of the wrist shows no gross malalignment of the distal radius. Uncomfortable discharging this patient home Radiology reports / interpretation(s): Patient to increase her pain medication from half a tablet to a full tablet we will add nausea medicine to go with it. Medication Administration(s) Medication Administration History Discontinued Medications Hydrocodone Bitart/Acetaminophen (Hydrocodone/Apap 5/325 Tablet) 1 tab PO X1 ONE Stop: 06/16/25 11:44 Last Admin: 06/16/25 12:07 Dose: 1 tab Documented By: JUAN F Ondansetron HCl (Ondansetron Odt 4 Mg Tabrap) 4 mg PO X1 ONE; Protocol Stop: 06/16/25 11:44 Last Admin: 06/16/25 12:07 Dose: 4 mg Documented By: JUAN F Diagnosis Differential diagnosis: Wrist fracture, wrist fracture with dislocation wrist dislocation Dispositon Disposition: Discharge Home
--- NOTE | 2025-06-16 11:47 | XR_ITS ---
Examination: Wrist, right 3 views Technique: Wrist AP, oblique, lateral 3 views Date and time of exam: June 16, 2025, 12:12 PM Indications: Patient fell 4 days ago with injury to the wrist, wrist pain. Findings: Acute impacted fracture distal radial metaphysis. No significant displacement. Impression: Acute impacted fracture distal radial metaphysis.
[2025-06-16] MEDS: HYDROcodone/APAP 5/325 TABLET 1 TAB PO (12:07)
[2025-06-16] MEDS: ONDANSETRON ODT 4 MG TABRAP PO (12:07)
== END 2025-06-16 13:52 | disposition home or self-care (01) ==
PROVIDERS: Emergency Provider Emergency Medicine; PCP Physician Assistant
DX: S52.591A Other fractures of lower end of right radius, initial encounter for closed fracture (principal); W19.XXXA Unspecified fall, initial encounter; I10 Essential (primary) hypertension; E66.9 Obesity, unspecified; Z68.36 Body mass index [BMI] 36.0-36.9, adult
CPT/HCPCS: 73110; 99283; Q0162; A9270